=== PATIENT | female | born 1945 | race Caucasian/White ===

== ENCOUNTER → 2022-03-19 11:15 | Outpatient (BNVA) | payer MEDICARE, SELFPAY | PROVIDERS: PCP Family Medicine; Visit Provider Family Medicine | DX: H40.9 Unspecified glaucoma (principal); I10 Essential (primary) hypertension; Z90.13 Acquired absence of bilateral breasts and nipples; N64.4 Mastodynia; Z85.3 Personal history of malignant neoplasm of breast; C50.919 Malignant neoplasm of unspecified site of unspecified female breast | CPT/HCPCS: 80053; 80061; 84443; 85025 ==

== ENCOUNTER 2022-04-25 10:54 | Outpatient (CLI) | payer MEDICARE, SELFPAY ==
--- NOTE | 2022-04-25 11:00 | CT_ITS ---
WS: [id number] CT CHEST WITH INTRAVENOUS CONTRAST HISTORY: R06.02 - Shortness of breath TECHNIQUE: Contiguous 5 mm axial imaging performed on the thorax. Coronal and sagittal reformats are submitted. All CT scans at [facility] use at least one of these dose optimization techniques: automated exposure control; mA and/or kV adjustment per patient size (includes targeted exams where dose is matched to clinical indication); or iterative reconstruction. CONTRAST: Omnipaque 350; 75 mL IV. DLP: 457.01 mGy.cm COMPARISON: 04/19/2018 Lungs and central airway: Pulmonary hyperexpansion. 4 mm nodule medial RIGHT upper lobe is new. No pn eumonia. No additional suspicious nodules. Calcified granuloma along the LEFT major fissure. No pneum onia. Pleura: Normal. No pleural effusion. Heart and pericardium: Mild cardiomegaly. Moderate enlargement of the LEFT atrium. Mediastinum and vianca: No adenopathy. Prominent pericardial recess. Vessels: Mild atherosclerosis aorta. Mildly enlarged pulmonary artery. Chest wall and lower neck: No soft tissue masses. Upper abdomen: Small hiatal hernia. Hepatic steatosis. LEFT hepatic cyst measures 2.0 cm. Visualized gallbladder is negative. Moderate atrophy of the LEFT kidney with the largest calcification measuring 1.8 x 1.2 cm in the renal pelvis. This is incompletely visualized but increased in size since 2018. Osseous structures: Increase in thoracic kyphosis. Disc space narrowing and spondylitic changes in th e thoracic spine. CT/CT chest w con* [id number] IMPRESSION: 1. No pneumonia. 2. 4 mm slightly spiculated nodule medial RIGHT upper lobe. Recommend follow-u p chest CT in 6 months. 3. Mild cardiomegaly, most significant enlargement of the LEFT atrium. 4. Hepatic steatosis. 5. Moderate atrophy LEFT kidney with increasing calcification in the renal pel vis.
[2022-04-25] MEDS: iohexol 350 mg/mL 100 mL Btl IV (11:23)
== END 2022-04-25 10:55 | disposition home or self-care (01) ==
PROVIDERS: PCP Family Medicine; Visit Provider Family Medicine
DX: R06.02 Shortness of breath (principal); Z90.13 Acquired absence of bilateral breasts and nipples; N26.1 Atrophy of kidney (terminal); K76.0 Fatty (change of) liver, not elsewhere classified; I51.7 Cardiomegaly; R91.1 Solitary pulmonary nodule
CPT/HCPCS: 71260

== ENCOUNTER → 2022-04-30 13:44 | Outpatient (BNVA) | payer MEDICARE, SELFPAY | PROVIDERS: PCP Family Medicine; Visit Provider Internal Medicine Pulmonary Disease | DX: R91.1 Solitary pulmonary nodule (principal); Z90.13 Acquired absence of bilateral breasts and nipples; I12.9 Hypertensive chronic kidney disease with stage 1 through stage 4 chronic kidney disease, or unspecified chronic kidney disease; N18.9 Chronic kidney disease, unspecified; I51.7 Cardiomegaly | CPT/HCPCS: 99204 ==

== ENCOUNTER 2022-10-09 13:36 | Outpatient (CLI) | payer MEDICARE, SELFPAY ==
--- NOTE | 2022-10-09 14:30 | CT_ITS ---
WS: [id number] CT CHEST WITHOUT INTRAVENOUS CONTRAST HISTORY: 6 month f/u lung nodule TECHNIQUE: Contiguous 5 mm axial imaging performed on the thorax. Coronal and sagittal reformats are submitted. All CT scans at [facility] use at least one of these dose optimization techniques: automated exposure control; mA and/or kV adjustment per patient size (includes targeted exams where dose is matched to clinical indication); or iterative reconstruction. CONTRAST: None DLP: 196.15 mGy.cm COMPARISON: 04/25/2022 and 04/19/2018 Lungs and central airway: No adverse change in the slightly spiculated nodule in the medial RIGHT upp er lobe measuring 4 mm. Appears less spiculated and nodular as compared to the prior study. There is an additional nodule measuring 6 mm in the RIGHT lower lobe that was present on the prior study also. This nodule was probably also present on the study from 2018 but better seen due to better image tamiko lity. No increase in size. No additional mass or nodule. Pleura: Normal. No pleural effusion. Heart and pericardium: Mild cardiomegaly. Small pericardial effusion. Mediastinum and vianca: No adenopathy. Vessels: Mild atherosclerosis aorta. Mildly dilated pulmonary artery. Chest wall and lower neck: No soft tissue masses. Upper abdomen: Small hiatal hernia. Stable hepatic cyst 2.1 cm. No adrenal mass. Calcification LEFT u pper pole may be a developing staghorn calculus. Osseous structures: Mild degenerative disc disease thoracic spine. CT/CT chest wo con [id number] IMPRESSION: 1. Stable 4 mm slightly spiculated nodule medial RIGHT upper lobe. Recommend f ollow-up chest CT 12 months. 2. Atherosclerosis aorta and mild pulmonary artery enlargement. 3. Hepatic cyst, stable.
== END 2022-10-09 13:37 | disposition home or self-care (01) ==
PROVIDERS: PCP Family Medicine; Visit Provider Internal Medicine Pulmonary Disease
DX: R91.1 Solitary pulmonary nodule (principal); I70.0 Atherosclerosis of aorta; K76.89 Other specified diseases of liver
CPT/HCPCS: 71250

== ENCOUNTER → 2022-11-04 09:48 | Outpatient (BNVA) | payer MEDICARE, SELFPAY | PROVIDERS: PCP Family Medicine; Visit Provider Family Medicine | DX: N26.1 Atrophy of kidney (terminal) (principal); R53.83 Other fatigue; I10 Essential (primary) hypertension; N29 Other disorders of kidney and ureter in diseases classified elsewhere; E83.59 Other disorders of calcium metabolism; M77.30 Calcaneal spur, unspecified foot; M79.672 Pain in left foot | CPT/HCPCS: 73620; 80053; 80061; 82306; 82607; 83540; 84443; 85025 ==

== ENCOUNTER 2022-11-05 14:44 | Observation (INO) | payer MEDICARE, SELFPAY ==
[2022-11-05] VITALS (15 sets, daily range): BP systolic 133–176; BP diastolic 55–87; PULSE 71–104; RESP 16–18; TEMP 36.6–37.2; O2SAT 95–100; BMI 23.0; BMI 26.0
[2022-11-05 15:17] LABS: Basophils # 0.1 10^3/uL (0.0-0.1); Basophils % 0.5 %; Eosinophils # 0.2 10^3/uL (0.0-0.8); Eosinophils % 1.7 %; Lymphocytes # 0.9 10^3/uL (0.8-4.8); Lymphocytes % 9.3 %; Mean Corpuscular HGB Conc 25.1 g/dL (30.0-36.0); Mean Corpuscular Hemoglobin 16.4 pg (28.0-34.0); Mean Corpuscular Volume 65.5 fl (81-99); Mean Platelet Volume 9.5 fL (7.4-10.4); Monocytes % 10.5 %; Neutrophils % 77.4 %; Nucleated Red Blood Cells # 0.1 /100WBC; Platelet Count 317 10^3/cmm (130-400); Red Blood Count 3.04 10^6/uL (4.1-5.3); Red Cell Distribution Width 19.9 % (12.1-15.1); White Blood Count 9.4 10^3/uL (4.0-10.0)
[2022-11-05 15:20] LABS: Hematocrit 19.9 % (37.0-47.0)
--- NOTE | 2022-11-05 15:32 | PC.PHAR ---
pt states she takes care of her own medications--pt states she is not taking amlodipine 5mg daily filled 08/14/22 90d/s pt states stop taking 6 weeks ago-pt state she is only taking the medications entered
--- NOTE | 2022-11-05 15:36 | W.ED.RECABL ---
HPI - Recheck/Abnormal Lab/Rx General: Chief Complaint: Recheck/Abnormal Lab/Rx Stated Complaint: Jose Elias sent for blood infusion Time Seen by Provider: 11/05/22 14:47 History of Present Illness: Patient presents to the ER with complaints of a low hemoglobin level. Patient went to her PCP yesterday and stated she just does not feel good and she is tired and fatigued they did some blood work which showed a hemoglobin of 5.5. She was called today and informed of the results and told to come over here to get some blood. Patient otherwise has no complaints. Patient is not on any anticoagulation, denies any bleeding issues, is not visually losing any blood, and has never had a transfusion before. MD complaint: abnormal lab Initial visit (ago): day(s) (Visit with PCP yesterday) Initial visit for: other (Fatigue) Returns today for: other (Recheck of lab and blood) Description of abnormal result: Hemoglobin 5.5 Treatments prior to arrival: other (None) Review of Systems General: Reports: 10 or more systems reviewed and unremarkable except in HPI and below Const: Denies: fever(s) or chills Eyes: Denies: change in vision ENMT: Denies: throat pain or enlarged tonsils Card: Denies: chest pain or palpitations Resp: Denies: dyspnea, productive cough or non-productive cough GI: Denies: abdominal pain, nausea, vomiting, diarrhea, hematochezia or melena : Denies: flank pain, difficulty voiding, dysuria or hematuria Musc: Denies: neck pain or back pain Skin/Breast: Denies: rash or pruritus Neuro: Denies: headache(s), numbness in extremities or weakness in extremities Psych: Denies: anxiety or depression Mars/Lymph: Denies: easy bruising, easy bleeding, petechiae or purpura All/Imm: Denies: urticaria or throat swelling PFS ED PFSH: Medical History Hx of heat stroke HX: breast cancer Nephrocalcinosis Surgical History History of colon resection Hx of bilateral mastectomy Hx of hysterectomy, total Family History Family/Other Cancer breast; 36 family members Grandmother Diabetes Alcoholism in family member Mother Alcoholism in family member Denies family history of CAD (coronary artery disease) Clotting disorder Dementia Psychiatric illness Anesthesia complication Bleeding disorder Family history of premature coronary artery disease Stroke Social History Smoking and tobacco status: never smoked Second hand smoke exposure: No Alcohol intake: current Alcohol intake frequency: holidays/special occasions only Alcohol type: wine Adopted: No Caregiver/support person: Yes (friend) Lives independently: Yes Household members: none Marital status: / service: No Current occupational status: retired Current gender identity: Female Chiqui/Scientologist: Cheondoism Special chiqui needs: Yes Agree to transfusion: No Physical Exam Const: COMMON NORMALS: no acute distress, average body habitus, patient oriented x3, no limitations, healthy appearing, alert and well nourished HENMT: COMMON NORMALS: normocephalic, atraumatic, hearing grossly normal bilaterally, external ears normal, Normal external nose present and moist oral mucous membranes HEAD & SCALP: normocephalic and atraumatic NOSE: Normal external nose present EXTERNAL EAR: Yes external ears normal Eye: COMMON NORMALS: EOMs intact bilaterally, conjunctivae normal and no scleral icterus CONJUNCTIVA: Yes conjunctivae normal Neck/C-Spine: COMMON NORMALS: full ROM, no lymphadenopathy, supple, no meningeal signs, no JVD and Thyroid normal THYROID: Thyroid normal Cardio: COMMON NORMALS: no JVD, regular rate, regular rhythm, S1 normal heart sound present and S2 normal heart sound present RATE: regular rate RHYTHM: regular rhythm HEART SOUNDS: S1 normal heart sound present and S2 normal heart sound present GI: COMMON NORMALS: Normal to inspection, nondistended, normoactive bowel sounds present, Soft to palpation, non-tender, No hepatosplenomegaly present and no masses PALPATION: Yes Soft to palpation and Yes No hepatosplenomegaly present : COMMON NORMALS: Yes no CVA tenderness BLADDER/KIDNEY EXAM: Yes no CVA tenderness Back/Pelvis: COMMON NORMALS: no CVA tenderness Neuro: COMMON NORMALS: patient oriented x3, CN's II-XII intact bilaterally, moves all extremities, no focal motor deficits and no sensory deficits noted SENSORIUM/ORIENTATION: Yes alert MENINGEAL SIGNS: Yes no meningeal signs Psych: COMMON NORMALS: mental status grossly normal, Normal thought process present, cooperative, normal affect and speech normal SPEECH: Yes normal speech THOUGHT PROCESS: Normal thought process present Course Vital Signs: Vital signs: Vital Signs Temperature 98.1 F 11/05/22 14:49 Pulse Rate 81 11/05/22 14:49 Respiratory Rate 18 11/05/22 14:49 Blood Pressure 141/55 11/05/22 14:49 Oxygen Delivery Me thod 11/05/22 14:49 MDM - Recheck/Abnormal Lab/Rx Medical Decision Making Patient presents to the ER with complaints of a low hemoglobin per PCP. Patient's only complaint is that she is tired and fatigued. Patient went to her family doc yesterday and had lab work drawn which showed a hemoglobin of 5.5. Patient was instructed to come here to receive blood. We repeated her CBC which showed her hemoglobin of 5.0. Upon physical exam of the patient and review of the labs with the patient it was suggested that patient receive at least 2 units of blood transfusion and be placed in observation. Patient agreed with this. Dr. Cordova was consulted and he agreed for admission. Differential Diagnosis Unlikely encounter for medication refill, encounter for wound recheck, encounter for recheck of burn or encounter for removal of sutures Medical Records I reviewed the patient's medical records. Lab Data I reviewed the patient's lab results. 11/05/22 15:10 11/05/22 15:10 Laboratory Results WBC 9.4 10^3/uL (4.0-10.0) 11/05/22 15:10 RBC 3.04 10^6/uL (4.1-5.3) L 11/05/22 15:10 Hgb 5.0 g/dL (11.5-15.3) L* 11/05/22 15:10 Hct 19.9 % (37.0-47.0) L* 11/05/22 15:10 MCV 65.5 fl (81-99) L 11/05/22 15:10 MCH 16.4 pg (28.0-34.0) L 11/05/22 15:10 MCHC 25.1 g/dL (30.0-36.0) L 11/05/22 15:10 RDW 19.9 % (12.1-15.1) H 11/05/22 15:10 Plt Count 317 10^3/cmm (130-400) 11/05/22 15:10 MPV 9.5 fL (7.4-10.4) 11/05/22 15:10 Neut % (Auto) 77.4 % 11/05/22 15:10 Lymph % (Auto) 9.3 % 11/05/22 15:10 Dooly % (Auto) 10.5 % 11/05/22 15:10 Eos % (Auto) 1.7 % 11/05/22 15:10 Baso % (Auto) 0.5 % 11/05/22 15:10 Neut # (Auto) 7.30 10^3/uL (1.8-7.7) 11/05/22 15:10 Lymph # (Auto) 0.9 10^3/uL (0.8-4.8) 11/05/22 15:10 Dooly # (Auto) 1.0 10^3/uL (0.2-0.9) H 11/05/22 15:10 Eos # (Auto) 0.2 10^3/uL (0.0-0.8) 11/05/22 15:10 Baso # (Auto) 0.1 10^3/uL (0.0-0.1) 11/05/22 15:10 Nucleated RBC % (auto) 1.0 % 11/05/22 15:10 Nucleated RBCs # 0.1 /100WBC 11/05/22 15:10 Sodium 142 mmol/L (136-145) 11/05/22 15:10 Potassium 3.8 mmol/L (3.5-5.1) 11/05/22 15:10 Chloride 113 mmol/L (98-107) H 11/05/22 15:10 Carbon Dioxide 19 mmol/L (22-29) L 11/05/22 15:10 Anion Gap 13.8 (5-19) 11/05/22 15:10 BUN 19 mg/dL (8-23) 11/05/22 15:10 Creatinine 0.8 mg/dL (0.5-0.9) 11/05/22 15:10 GFR Calculation Not Reportable 11/05/22 15:10 Glucose 107 mg/dL (65-115) 11/05/22 15:10 Calculated Osmolality 297 mOsm/kg (285-295) H 11/05/22 15:10 Calcium 8.5 mg/dL (8.5-10.5) 11/05/22 15:10 Total Bilirubin 0.2 mg/dL (0.15-1.2) 11/05/22 15:10 AST 12 U/L (0-32) 11/05/22 15:10 ALT 10 U/L (0-33) 11/05/22 15:10 Alkaline Phosphatase 92 U/L (35-105) 11/05/22 15:10 Total Protein 6.5 g/dL (6.6-8.7) L 11/05/22 15:10 Albumin 4.1 g/dL (3.5-5.2) 11/05/22 15:10 Globulin 2.4 g/dL (1.3-4.6) 11/05/22 15:10 Blood Type A Negative 11/05/22 15:10 Rho(D) Type Negative 11/05/22 15:10 Discharge Plan Discharge Patient Disposition: Admitted As Inpatient Clinical Impression: Transfusion of blood during current hospitalisation Anemia Qualifiers: Anemia type: iron deficiency Iron deficiency anemia type: unspecified iron deficiency Qualified Code(s): D50.9 - Iron deficiency anemia, unspecified Condition: Stable Coding Level of Care Code ED [employer] for Jacob Castaneda
[2022-11-05 15:43] LABS: Alanine Aminotransferase 10 U/L (0-33); Albumin Level 4.1 g/dL (3.5-5.2); Alkaline Phosphatase 92 U/L (35-105); Anion Gap 13.8 (5-19); Aspartate Amino Transferase 12 U/L (0-32); Blood Urea Nitrogen 19 mg/dL (8-23); Calcium 8.5 mg/dL (8.5-10.5); Carbon Dioxide 19 mmol/L (22-29); Chloride 113 mmol/L (98-107); Globulin 2.4 g/dL (1.3-4.6); Glucose 107 mg/dL (65-115); Osmolality Calculated 297 mOsm/kg (285-295); Potassium 3.8 mmol/L (3.5-5.1); Sodium 142 mmol/L (136-145); Total Bilirubin 0.2 mg/dL (0.15-1.2); Total Protein 6.5 g/dL (6.6-8.7)
--- NOTE | 2022-11-05 15:58 | PM.HP ---
Providers/Chief Complaint Primary Care Provider: Ciara Moctezuma MD Chief Complaint: Jose Elias sent for blood infusion History of Present Illness Latia Hunter is a 77 year old female with past medical history of breast cancer post bilateral mastectomy with a strong family history of breast cancer, partial gastrectomy and hemicolectomy more than 40 years ago, hypertension not on medications presented to the ER from primary care's office because of anemia. Patient states she has been having worsening weakness, dizziness, lightheadedness especially on walking around for last 6 weeks along with mild palpitations. Denies any chest pain, difficulty in breathing, falls, dysuria, fever, cough, hematemesis or melena. Patient does states she has been having occasional lumpy soft bowel movements sometimes red sometimes black sometimes yellow in color. Denies any melena though. States had EGD and colonoscopy many years ago and was reported normal. Had Cologuard test done within last 5 years which was negative. Blood work done in the ER showed a white count of 9.4, hemoglobin of 9, sodium of 142, chloride of 113, creatinine 0.8, AST/ALT of 12/10, UA negative positive for leuk esterase with 1+ bacteria. Vitamin B12 level thousand done as an outpatient yesterday 183 with low vitamin D and low iron. Review of Systems General: Reports: 10 or more systems reviewed and unremarkable except in HPI and below Const: Denies: fever(s), chills, body aches, change in appetite, change in weight, malaise, night sweats, diaphoresis, change in sleep pattern, daytime sleepiness or snoring Eyes: Denies: change in vision, blurry vision, photophobia, eye discomfort or eye discharge ENMT: Denies: throat pain, enlarged tonsils, hoarseness, mouth pain, oral sores, dry mouth, tinnitus, nasal congestion or post nasal drip Card: Denies: chest pain, palpitations, irregular heart rhythm, edema, swelling of feet/ankles, lightheadedness, syncope, pre-syncope, dyspnea on exertion, orthopnea, leg pain with exertion or acrocyanosis Resp: Denies: dyspnea, productive cough, non-productive cough, wheezing, stridor, pain on inspiration, change in phlegm color, hemoptysis or chest congestion GI: Denies: abdominal pain, nausea, vomiting, hematemesis, coffee ground emesis, dysphagia, heartburn, diarrhea, constipation, bloating, GI cramping, change in bowel habits, pain on defecation, hematochezia or melena : Denies: flank pain, dysuria, urinary frequency, urinary urgency, urinary hesitancy, nocturia or hematuria Musc: Denies: neck pain, back pain, extremity pain, joint pain, joint swelling, joint redness, joint stiffness or limited range of motion Neuro: Denies: headache(s), numbness in extremities, weakness in extremities, sensory changes, lack of coordination, difficulty walking, frequent falls, dizziness, vertigo, confusion, Slurred speech present, difficulty communicating thoughts or seizure-like activity Psych: Denies: anxiety, depression, mood swings, panic attacks, hopelessness or irritability Endo: Denies: polyuria, polydipsia, tired all the time, cold intolerance, excessive sweating, flushing or heat intolerance Mars/Lymph: Denies: easy bruising or easy bleeding All/Imm: Denies: tongue swelling, facial swelling or acute wheezing Medications/Allergies Home Medications Medication Instructions Recorded Confirmed Last Taken Type Cordyceps Caps 1 cap PO DAILY 11/05/22 11/05/22 Unknown History Reishi Caps 1 cap PO DAILY 11/05/22 11/05/22 Unknown History Spirulina Caps 1 cap PO DAILY 11/05/22 11/05/22 Unknown History timolol maleate 0.5 % eye drops 1 drp ophthalmic (eye) BID 11/05/22 11/05/22 11/05/22 History vitamin D3 1,250 mcg (50,000 1 cap PO DAILY 11/05/22 11/05/22 Unknown History unit)-vitamin K2 200 mcg capsule Allergies Allergy/AdvReac Type Severity Reaction Status Date / Time Sulfa (Sulfonamide Allergy Severe ALGY-Anaphy Verified 11/04/22 08:53 Antibiotics) laxis PFSH Acute PFSH: Medical History (Updated 11/05/22 @ 16:00 by Alfredo Ford MD) Hx of heat stroke HX: breast cancer Nephrocalcinosis Surgical History (Updated 11/05/22 @ 17:27 by Alfredo Ford MD) History of colon resection History of partial gastrectomy Hx of bilateral mastectomy Hx of hysterectomy, total Family History Family/Other Cancer breast; 36 family members Grandmother Diabetes Alcoholism in family member Mother Alcoholism in family member Denies family history of CAD (coronary artery disease) Clotting disorder Dementia Psychiatric illness Anesthesia complication Bleeding disorder Family history of premature coronary artery disease Stroke Social History Smoking and tobacco status: never smoked Second hand smoke exposure: No Alcohol intake: current Alcohol intake frequency: holidays/special occasions only Alcohol type: wine Adopted: No Caregiver/support person: Yes (friend) Lives independently: Yes Household members: none Marital status: / service: No Current occupational status: retired Current gender identity: Female Chiqui/Holiness: Scientologist Special chiqui needs: Yes Agree to transfusion: No Vitals/I&O/Wt Last Vital Signs Temp 98.1 F 11/05/22 14:49 Pulse 81 11/05/22 14:49 Resp 18 11/05/22 14:49 BP 141/55 11/05/22 14:49 O2 Del Method 11/05/22 14:49 Weight last 48 hrs Weight 53.524 kg Physical Exam Narrative: General: No acute distress, AO x3, pallor, jovial HEENT: PERRLA, pupils bilaterally equal and reactive Chest: Normal vesicular breath sounds, no added sounds, equal good air entry bilaterally CVS: S1-S2 regular, no murmurs, no tachycardia, no gallops, no rubs Abdomen: Soft, nontender, no organomegaly, bowel sounds present Neuro: No focal deficits, no facial deformity, AO x3, power 5/5 in all limbs Data 11/05/22 15:10 11/05/22 15:10 A&P Assessment and plan (1) Anemia: Denies any active signs of melena. Patient does have a history of breast cancer with significant family history of breast cancer as well. Also has a history of partial gastrectomy. Found to have iron deficiency and low vitamin B12 levels. Check haptoglobin, LDH, folate, GGT levels. Check INR. Start on IV iron supplementation 200 mg for 5 days. Cyanocobalamin 1000 mcg IM daily for 3 days followed by 500 mcg daily oral. 2 units PRBC transfusion. IV Protonix 40 mg daily. Stool for occult blood. If occult blood is positive will plan for EGD and colonoscopy. Last colonoscopy and EGD many years ago reported normal. Cologuard test done [address] chest abdomen pelvis with contrast and oral contrast. Qualifiers: Anemia type: iron deficiency Iron deficiency anemia type: unspecified iron deficiency Qualified Code(s): D50.9 - Iron deficiency anemia, unspecified (2) Iron deficiency anemia: (3) B12 deficiency: (4) Essential hypertension: Goal blood pressure less than 140/90 mmHg. Restart medications as per goal blood pressures. (5) Atrophic kidney: Chronic history. Creatinine normal. CT abdomen pelvis as above. Continue to monitor BMP daily. (6) History of partial gastrectomy: More than 40 years ago for ? Cause. Does have iron, vitamin B12, vitamin D deficiencies. Could be secondary to poor absorption. Check fecal fat levels, vitamin A and vitamin K levels. Plan Full code. Protonix for PUD prophylaxis. SCDs for DVT prophylaxis. Regular diet. Attestations Medical Necessity Statement*: Admission for more than 2 midnights for evaluation and management of significant symptomatic anemia requiring blood transfusion Diagnoses Anemia D50.9 Anemia type: iron deficiency Iron deficiency anemia type: unspecified iron deficiency Iron deficiency anemia D50.9 B12 deficiency E53.8 Essential hypertension I10 Atrophic kidney N26.1 History of partial gastrectomy Z90.3
[2022-11-05 16:06] LABS: Bilirubin Urine Neg (Negative); Blood Urine Neg (Negative); Glucose Urine UA Norm (Normal); Ketones Urine 1+ (Negative); Nitrate Urine Negative (Negative); Protein Urine Trace (Negative); Specific Gravity, Urine 1.015 (1.005-1.030); Urine Appearance Hazy (CLEAR); Urine Color Yellow (Yellow); Urobilinogen Urine Norm (Negative); pH Urine 5 (5-7)
[2022-11-05 16:07] LABS: Add Urine Microscopic? YES; Bacteria Urine 1+ /hpf; Leukocyte Esterase Urine Trace (Negative); Squamous Epithelial Cell Urine 0-4 /hpf (0-5)
[2022-11-05 16:10] LABS: Calcium Oxalate Crystals Urine 25-40 /hpf
[2022-11-05 16:11] LABS: Add Urine Culture? No
--- NOTE | 2022-11-05 16:13 | CTR_ITS ---
PROCEDURE INFORMATION: Exam: CT Chest With Contrast; Diagnostic Exam date and time: 11/05/2022 5:08 PM Age: 77 years old Clinical indication: Condition or disease; Other: Anemia; Other: H/o CA; Prior surgery; Surgery date: 6+ months; Surgery type: Double mast colon; Additional info: Anemia, strong family h/o cancer TECHNIQUE: Imaging protocol: Diagnostic computed tomography of the chest with contrast. Radiation optimization: All CT scans at this facility use at least one of these dose optimization techniques: automated exposure control; mA and/or kV adjustment per patient size (includes targeted exams where dose is matched to clinical indication); or iterative reconstruction. Contrast material: OMNI 350; Contrast volume: 100 ml; Contrast route: INTRAVENOUS (IV); REPORTING DATA: Count of CT and Cardiac NM exams in prior 12 months: This patient has received 2 known CTs and 0 known cardiac nuclear medicine studies in the 12 months prior to the current study. COMPARISON: CT chest wo con [id number] 10/09/2022 2:17 PM RADIATION DOSE METRICS: Total DLP (mGy-cm): 610.49 FINDINGS: Lungs: Left upper lobe calcified granuloma. Stable 4 mm irregular density in the right lung apex which has the appearance of scar, series 4 image 17. Stable 6 mm right lower lobe nodule, image 37. Stable 3 mm left lower lobe nodule, image 35. Pleural spaces: Unremarkable. No pneumothorax. No pleural effusion. Heart: Mitral annulus calcifications. Lymph nodes: Unremarkable. No enlarged lymph nodes. Vasculature: Unremarkable. No aortic aneurysm. Bones/joints: Degenerative changes of the thoracic spine. No fracture or metastatic lesion. Soft tissues: Bilateral mastectomies. PROCEDURE INFORMATION: Exam: CT Abdomen And Pelvis With Contrast Exam date and time: 11/05/2022 5:08 PM Age: 77 years old Clinical indication: Condition or disease; Other: Anemia; Other: H/o CA; Prior surgery; Surgery date: 6+ months; Surgery type: Double mast colon; Additional info: Anemia, strong family h/o cancer TECHNIQUE: Imaging protocol: Computed tomography of the abdomen and pelvis with contrast. Radiation optimization: All CT scans at this facility use at least one of these dose optimization techniques: automated exposure control; mA and/or kV adjustment per patient size (includes targeted exams where dose is matched to clinical indication); or iterative reconstruction. Contrast material: OMNI 350; Contrast volume: 100 ml; Contrast route: INTRAVENOUS (IV); REPORTING DATA: Count of CT and Cardiac NM exams in prior 12 months: This patient has received 2 known CTs and 0 known cardiac nuclear medicine studies in the 12 months prior to the current study. COMPARISON: CT chest con [id number] 10/09/2022 2:17 PM RADIATION DOSE METRICS: Total DLP (mGy-cm): 610.49 FINDINGS: Liver: Left liver lobe cyst, Hounsfield units less than 20. Additional hypodensities in the liver are too small to characterize but are most likely cysts. No suspicious nodule. Gallbladder and bile ducts: Partially contracted gallbladder. The bile ducts are normal. Pancreas: Normal. No ductal dilation. Spleen: Normal. No splenomegaly. Adrenal glands: Normal. No mass. Kidneys and ureters: Atrophic left kidney with stable large staghorn type renal calculi. Hypodense lesions in the right kidney are too small to accurately characterize but are most likely cysts. No follow-up imaging is recommended. No ureteral calculus or hydronephrosis. Stomach and bowel: The colon is moderately distended with gas and stool. No wall thickening. The stomach and small bowel are unremarkable. No obstruction. Appendix: No evidence of appendicitis. Intraperitoneal space: Unremarkable. No free air. No significant fluid collection. Vasculature: Arterial calcifications. No aneurysm. Lymph nodes: Small retroperitoneal lymph nodes are most likely reactive. Urinary bladder: Unremarkable as visualized. Reproductive: The uterus is absent. Small retained ovaries. Bones/joints: Degenerative changes of the lumbar spine. No fracture or metastatic lesion identified. Lumbar scoliosis. Soft tissues: Unremarkable. CT/CT chest abdpel w/*[id number] IMPRESSION: 1. No acute findings. 2. Stable pulmonary nodules (unchanged from 04/25/2022). CT follow-up in 1 year recommended. IMPRESSION: 1. No acute findings. 2. Stable atrophic left kidney with nonobstructing renal calculi. COMMENTS: Consistent with the [employer]'s Incidental Findings Committee white paper (J Am Gabriele Radiol 2018): Any incidental renal lesion less than 1 cm or classified as too small to characterize, or any incidental cystic renal lesion characterized as simple-appearing, is likely benign. No follow-up imaging is recommended for these lesions per consensus recommendations based on imaging criteria.
[2022-11-05 16:20] LABS: Partial Thromboplastin Time 29.2 SECONDS (23.9-36.7)
[2022-11-05 16:31] LABS: Gamma Glutamyl Transferase 11 U/L (5-36); Lactate Dehydrogenase 172 U/L (135-214); Thyroid Stimulating Hormone 1.56 uIU/mL (0.27-4.20)
--- NOTE | 2022-11-05 16:40 | USCV_ITS ---
Latia Hunter Age: 77 Gender: F : 1945 Exam Date: 11/05/2022 20:28 Ordering Phys: Alfredo Ford MD Technologist: BEE Exam Location: [facility] Indication: SOB, low hemoglobin, fatigue, malaise. No history of cardiac intervention per patient. BP: 143 / 68 HR: 84 Rhythm: Sinus Technical Quality: Adequate MEASUREMENTS (Male / Female) Normal Values 2D ECHO LV Diastolic Diameter PLAX 3.1 cm 4.2 - 5.9 / 3.9 - 5.3 cm LV Systolic Diameter PLAX 1.9 cm IVS Diastolic Thickness 1.4 cm 0.6 - 1.0 / 0.6 - 0.9 cm IVS Systolic Thickness 1.9 cm LVPW Diastolic Thickness 1.1 cm 0.6 - 1.0 / 0.6 - 0.9 cm LVPW Systolic Thickness 1.3 cm LVOT Diameter 1.7 cm LV Ejection Fraction 2D Teich 71.0 % LV Ejection Fraction MOD 2C 72.0 % LV Ejection Fraction 2C AL 76.5 % LA Diameter 3.1 cm LA Width 3.8 cm LA Height 5.1 cm RA Width 3.0 cm RA Height 4.2 cm Aorta at Sinotubular Diameter 2.7 cm IVC Diameter 2.0 cm M-MODE Aortic Annulus Diameter 2.9 cm LA Ao Ratio MM 1.1 MV E Point Septal Separation 0.5 cm DOPPLER AV Peak Velocity 134.3 cm/s LVOT Peak Velocity 137.0 cm/s AV Area Cont Eq vti 2.2 cm squared AV Area Cont Eq pk 2.4 cm squared MV Area PHT 3.2 cm squared Mitral E to A Ratio 1.0 MV E' Velocity 74.5 cm/s Mitral E to MV E' Ratio 24.9 Mitral E to LV E' Lateral Ratio 26.2 Mitral E to LV E' Septal Ratio 23.6 TR Peak Velocity 339.3 cm/s TR Peak Gradient 46.1 mmHg TV Peak E Velocity 52.0 cm/s Right Atrial Pressure 5.0 mmHg Pulmonary Artery Systolic Pressu 51.1 mmHg PV Peak Velocity 125.0 cm/s RV Acceleration Time 0.1 s RV Ejection Time 0.3 s RV AcT/ET 0.3 FINDINGS Left Ventricle Left ventricle is normal size. LV systolic function is normal with EF of 60 to 65%. No regional wall motion abnormalities are seen. Right Ventricle Normal in size and function Right Atrium Normal in size Left Atrium Dilated Mitral Valve Moderate mitral annular calcification is seen. No significant regurgitation. Aortic Valve Structurally normal aortic valve. No significant stenosis. Tricuspid Valve Mild tricuspid regurgitation. RVSP is 50 to 55 mmHg. This is consistent with moderate pulmonary hypertension. Pulmonic Valve Not well-visualized. Mild pulmonic regurgitation Pericardium Normal Aorta Normal in size IVC Appears to be normal CONCLUSIONS LV systolic function is normal with EF of 60 to 65%. Left atrial dilation Mild tricuspid regurgitation. Moderate pulmonary hypertension Mild pulmonic regurgitation No comparison studies are available Vic Yoder MD (Electronically Signed) Final Date: 06 November 2022 11:14 S
[2022-11-05] MEDS: cyanocobalamin 1,000 mcg/mL SDV 1000 MCG IM (16:53)
[2022-11-05] MEDS: iohexol 350 mg/mL 500 mL Btl (per mL) IV (17:14)
[2022-11-05 19:34] LABS: Folate Level 11.9 ng/mL (4.8-37.3)
[2022-11-05] MEDS: pantoprazole 40 mg SDV IVP (21:45)
[2022-11-05] MEDS: iron sucrose 200 MG in sodium chloride 0.9% (100 ml) 100 ML 220 MG IV (21:46)
[2022-11-06] VITALS (10 sets, daily range): BP systolic 128–192; BP diastolic 68–82; PULSE 72–84; RESP 15–17; TEMP 36.6–37.2; O2SAT 95–98
[2022-11-06] MEDS: sodium chloride 0.9% 100 mL Bag 50 ML IV (00:18)
[2022-11-06 03:20] LABS: Basophils # 0.1 10^3/uL (0.0-0.1); Basophils % 0.6 %; Eosinophils # 0.2 10^3/uL (0.0-0.8); Eosinophils % 1.8 %; Hematocrit 30.9 % (37.0-47.0); Hemoglobin 8.8 g/dL (11.5-15.3); Lymphocytes # 1.2 10^3/uL (0.8-4.8); Lymphocytes % 11.9 %; Mean Corpuscular HGB Conc 28.5 g/dL (30.0-36.0); Mean Corpuscular Volume 73.7 fl (81-99); Mean Platelet Volume 9.6 fL (7.4-10.4); Monocytes % 10.2 %; Neutrophils # 7.53 10^3/uL (1.8-7.7); Neutrophils % 75.2 %; Nucleated Red Blood Cells # 0.1 /100WBC; Nucleated Red Blood Cells % 0.6 %; Platelet Count 258 10^3/cmm (130-400); Red Blood Count 4.19 10^6/uL (4.1-5.3); Red Cell Distribution Width 25.2 % (12.1-15.1)
[2022-11-06 03:38] LABS: Alanine Aminotransferase 10 U/L (0-33); Albumin Level 3.4 g/dL (3.5-5.2); Alkaline Phosphatase 97 U/L (35-105); Anion Gap 14.6 (5-19); Aspartate Amino Transferase 14 U/L (0-32); Blood Urea Nitrogen 17 mg/dL (8-23); Calcium 8.5 mg/dL (8.5-10.5); Carbon Dioxide 17 mmol/L (22-29); Chloride 112 mmol/L (98-107); Globulin 2.8 g/dL (1.3-4.6); Glucose 118 mg/dL (65-115); Magnesium 1.8 mg/dL (1.7-2.3); Osmolality Calculated 293 mOsm/kg (285-295); Potassium 3.6 mmol/L (3.5-5.1); Sodium 140 mmol/L (136-145); Total Bilirubin 0.5 mg/dL (0.15-1.2); Total Protein 6.2 g/dL (6.6-8.7)
--- NOTE | 2022-11-06 03:39 | PC.NURSE ---
SENIOR SALES CONSULTANT reports to this nurse high blood pressure on patient. This nurse went to recheck blood pressure and it is 201/78. Patient educated that the physician would need to be notified of elevated blood pressure. Patient states I wish I had brought my herbal tea with me. It brings my blood pressure down. Patient then states let me try some lemon water before you call him. Taisha can bring it down too. Patient has lemon water at bedside.
--- NOTE | 2022-11-06 03:52 | PC.NURSE ---
Addendum entered by Yanci Brambila RN 11/06/22 04:19: Hydralazine x1 ordered. Original Note: Blood pressure 194/[address] Vargas notified. Patient states I know why it's high, it's because I'm sitting here trying to figure out how I'm gonna pay for all of this. Dr. Vargas notified of blood pressure.
[2022-11-06 04:10] LABS: Estmated Average Glucose 108; Hemoglobin A1C 5.4 % (4.0-6.0)
[2022-11-06] MEDS: hyDRALAzine 20 mg/mL INJ 1 mL 10 MG IVP (04:31)
[2022-11-06] MEDS: cyanocobalamin 1,000 mcg/mL SDV 1000 MCG IM (09:32)
[2022-11-06] MEDS: cholecalciferol (vitamin D3) 5,000 unit Tablet 5000 UNIT PO (09:32)
[2022-11-06] MEDS: amlodipine 10 mg Tablet PO (10:07)
--- NOTE | 2022-11-06 10:14 | P.CONIM_ITS ---
Providers/Reason For Consult Consulting Physician/Specialty*: Dr. Ford/hospitalist Reason for Consult*: Iron deficiency anemia Attending Physician: Alfredo Ford MD Primary Care Provider: Ciara Moctezuma MD History of Present Illness History of Present Illness Latia Hunter is a 77 year old female who presents with iron deficiency anemia. The patient had a hemoglobin of 5. The patient was admitted to the hospitalist service. The patient has been transfused. The patient is currently awake and alert. The patient's past medical history is somewhat confusing. The patient had some sort of partial gastrectomy more than 40 years ago. The exact reason for this is unclear. The patient states that she has been having lumpy stools. The patient denies black tarry stools. She denies bright red blood per rectum. She denies hematemesis. Review of Systems General: Reports: 10 or more systems reviewed and unremarkable except in HPI and below Medications/Allergies Home Medications Medication Instructions Recorded Confirmed Last Taken Type Cordyceps Caps 1 cap PO DAILY 11/05/22 11/05/22 Unknown History Reishi Caps 1 cap PO DAILY 11/05/22 11/05/22 Unknown History Spirulina Caps 1 cap PO DAILY 11/05/22 11/05/22 Unknown History timolol maleate 0.5 % eye drops 1 drp ophthalmic (eye) BID 11/05/22 11/05/22 11/05/22 History vitamin D3 1,250 mcg (50,000 1 cap PO DAILY 11/05/22 11/05/22 Unknown History unit)-vitamin K2 200 mcg capsule Allergies Allergy/AdvReac Type Severity Reaction Status Date / Time Sulfa (Sulfonamide Allergy Severe ALGY-Anaphy Verified 11/04/22 08:53 Antibiotics) laxis Current Medications Generic Name Dose Route Start Last Admin Trade Name Freq PRN Reason Stop Dose Admin Amlodipine Besylate 10 mg 11/06/22 09:55 11/06/22 10:07 Amlodipine 10 Mg Tablet PO 10 mg DAILY GERONIMO Administration Cyanocobalamin 1,000 mcg 11/05/22 15:50 11/06/22 09:32 Cyanocobalamin 1,000 Mcg/Ml Sdv IM 11/08/22 15:49 1,000 mcg DAILY GERONMIO Administration Iron Sucrose 200 mg/ Sodium 110 mls @ 220 mls/hr 11/05/22 17:46 11/05/22 22:14 Chloride IV 11/09/22 23:29 Infused Q24H GERONIMO Infusion Pantoprazole Sodium 40 mg 11/05/22 17:46 11/05/22 21:45 Pantoprazole 40 Mg Sdv IVP 40 mg Q24H GERONIMO Administration Sodium Chloride 50 ml 11/05/22 15:33 11/06/22 00:18 Sodium Chloride 0.9% 100 Ml Bag IV 11/06/22 15:35 50 ml PRN PRN Administration Blood transfusion prime and flush Vitamin D 5,000 unit 11/06/22 09:00 11/06/22 09:32 Cholecalciferol (Vitamin D3) 5,000 Unit Tablet PO 5,000 unit DAILY GERONIMO Administration PFSH Acute PFSH: Medical History (Updated 11/05/22 @ 16:00 by Alfredo Ford MD) Hx of heat stroke HX: breast cancer Nephrocalcinosis Surgical History (Updated 11/05/22 @ 17:27 by Alfredo Ford MD) History of colon resection History of partial gastrectomy Hx of bilateral mastectomy Hx of hysterectomy, total Family History Family/Other Cancer breast; 36 family members Grandmother Diabetes Alcoholism in family member Mother Alcoholism in family member Denies family history of CAD (coronary artery disease) Clotting disorder Dementia Psychiatric illness Anesthesia complication Bleeding disorder Family history of premature coronary artery disease Stroke Social History Smoking and tobacco status: never smoked Second hand smoke exposure: No Alcohol intake: current Alcohol intake frequency: holidays/special occasions only Alcohol type: wine Adopted: No Caregiver/support person: Yes (friend) Lives independently: Yes Household members: none Marital status: / service: No Current occupational status: retired Current gender identity: Female Chiqui/Spiritism: Episcopalian Special chiqui needs: Yes Agree to transfusion: No Vitals/I&O/Wt Last Vital Signs Temp 97.8 F 11/06/22 08:00 Pulse 72 11/06/22 08:00 Resp 17 11/06/22 08:00 BP 170/77 11/06/22 08:00 Pulse Ox 95 11/06/22 08:00 O2 Del Method 11/06/22 08:00 11/05/22 11/06/22 11/06/22 22:59 06:59 14:59 Intake Total 700 / 700 470 / 1170 240 / 240 Balance 700 / 700 470 / 1170 240 / 240 Weight last 48 hrs Weight 131 lb 1.6 oz Weight 118 lb Physical Exam Narrative: Generally: No acute distress Lungs: Clear to auscultation Heart: Regular rate and rhythm Abdomen: Soft, nontender without masses. The patient is positive bowel sounds. I did not perform a rectal exam. Extremities: The patient has some deformities of her fingers. This probably secondary to arthritis. She is got good cap refill in both her hands and feet. Neurologic: Patient is awake, alert, oriented x3. The patient's Thurmond Coma Scale is 15. The patient sensations intact to light touch throughout. Data 11/06/22 03:13 11/06/22 03:13 Micro: Microbiology 11/05/22 22:27 Occult Blood (FIT) - Final Stool - Stool Aspirate Attestation for Other Data: I personally reviewed and interpreted the following: (All the patient's labs including a CT scan of the chest, abdomen and pelvis which was performed yesterday.) A&P Assessment and plan (1) Anemia: I spoke with the patient at length. I explained to her that she probably needs to undergo endoscopy. She probably needs to have both upper and lower performed. In order to have the lower endoscopy performed the patient will need to be cleaned out. The patient stated that she did not want to stay in the hospital 1 more night. I told her we could probably do the scope later on this afternoon. The patient stated that she would prefer to have everything done as an outpatient. I explained the patient that the fact that she had a hemoglobin of 5 is extremely serious. The patient was focused on taking care of her animals and the fact that she had out-of-town guests coming in later on this week. Once again I stressed that this is extremely serious and that there is a possibility that she would not be okay and that she could pass out and possibly from a low hemoglobin. The patient understands risk and benefits and would like to have her procedure done as an outpatient. The patient should follow-up with Dr. Ann. Thank you so much for this consult. Qualifiers: Anemia type: iron deficiency Iron deficiency anemia type: unspecified iron deficiency Qualified Code(s): D50.9 - Iron deficiency anemia, unspecified Coding Level of Care Code Acute Code for Chg Fwd Diagnoses Anemia D50.9 Anemia type: iron deficiency Iron deficiency anemia type: unspecified iron deficiency
--- NOTE | 2022-11-06 10:52 | P.DS_ITS ---
Discharge Providers Date of Admission: 11/05/22 16:20 Date of Discharge: November 06, 2022 Attending Provider at Admission: Alfredo Ford MD Attending Provider at Discharge: Alfredo Ford MD Consults: Surgery: Dr. Beauchamp Primary Care Provider: Ciara Moctezuma MD Diagnoses at Discharge Discharge Diagnosis (1) Anemia: Status: Acute Qualifiers: Anemia type: iron deficiency Iron deficiency anemia type: unspecified iron deficiency Qualified Code(s): D50.9 - Iron deficiency anemia, unspecified (2) History of partial gastrectomy: Status: Acute (3) B12 deficiency: Status: Acute (4) Iron deficiency anemia: Status: Acute (5) Transfusion of blood during current hospitalisation: Status: Acute Reason for Visit Reason for Visit: Jose Elias sent for blood infusion Hospital Course Hospital Course Latia Hunter is a 77 year old female with past medical history of breast cancer post bilateral mastectomy with a strong family history of breast cancer, partial gastrectomy and hemicolectomy more than 40 years ago, hypertension not on medications presented to the ER from primary care's office because of anemia.? Patient states she has been having worsening weakness, dizziness, lightheadedness especially on walking around for last 6 weeks along with mild palpitations.? Denies any chest pain, difficulty in breathing, falls, dysuria, fever, cough, hematemesis or melena.? Patient does states she has been having occasional lumpy soft bowel movements sometimes red sometimes black sometimes yellow in color.? Denies any melena though.? States had EGD and colonoscopy many years ago and was reported normal.? Had Cologuard test done within last 5 years which was negative. Blood work done in the ER showed a white count of 9.4, hemoglobin of 9, sodium of 142, chloride of 113, creatinine 0.8, AST/ALT of 12/10, UA negative positive for leuk esterase with 1+ bacteria.? Vitamin B12 level thousand done as an outpatient yesterday 183 with low vitamin D and low iron. Patient was admitted to the hospital for further evaluation and management of severe anemia. She required 2 unit of blood transfusion. Her hemoglobin responded well and on day of discharge is more than 8. Given her history of partial gastrectomy there were concerns for malabsorption syndrome versus possible slow GI bleed. Her stool for occult blood came back positive. She was found to be deficient of vitamin B12, iron and vitamin D. Vitamin K and vitamin A levels are pending. Fecal fat is pending as well. Patient was advised to undergo EGD and colonoscopy for further evaluation and management but she wanted to follow-up as an outpatient for both procedures. During hospitalization she was also found to have slightly elevated blood pressures for which she had been started on oral amlodipine 10 mg daily. Patient advised in detail to make sure she takes vitamin D, B12 and iron supplement as an outpatient. Follow-up with primary care provider within next 1 week, follow-up with surgeon as an outpatient within next 1 week and to follow- up with hematology within next 1 month for further evaluation of severe anemia with vitamin B12 and iron deficiency. Physical Exam Narrative: General: No acute distress, AO x3, pallor, jovial HEENT: PERRLA, pupils bilaterally equal and reactive Chest: Normal vesicular breath sounds, no added sounds, equal good air entry bilaterally CVS: S1-S2 regular, no murmurs, no tachycardia, no gallops, no rubs Abdomen: Soft, nontender, no organomegaly, bowel sounds present Neuro: No focal deficits, no facial deformity, AO x3, power 5/5 in all limbs Discharge Data Studies Completed and Pending Completed Studies During Hospitalization Category Date Time Status CT chest abdpel w/*[id number] Stat Cat Scan 11/05/22 16:13 Completed Pending at discharge Category Date Time Status Complete Blood Count w/Auto AM LABS Lab 11/07/22 04:00 Ordered Comprehensive Metabolic Panel AM LABS Lab 11/07/22 04:00 Ordered Fecal Fat, Qualitative Routine Lab 11/05/22 22:27 Received Vitamin A (Retinol) Routine Lab 11/05/22 18:20 Received Vitamin K Routine Lab 11/05/22 18:20 Received CV. echo complete* [id number] Routine Ultrasound 11/05/22 16:40 Taken Radiology Impressions Chest/Abdomen/Pelvis CT 11/05/22 16:13 IMPRESSION: 1. No acute findings. 2. Stable pulmonary nodules (unchanged from 04/25/2022). CT follow-up in 1 year recommended. IMPRESSION: 1. No acute findings. 2. Stable atrophic left kidney with nonobstructing renal calculi. COMMENTS: Consistent with the [employer]'s Incidental Findings Committee white paper (J Am Gabriele Radiol 2018): Any incidental renal lesion less than 1 cm or classified as too small to characterize, or any incidental cystic renal lesion characterized as simple-appearing, is likely benign. No follow-up imaging is recommended for these lesions per consensus recommendations based on imaging criteria. Echocardiogram: ?CONCLUSIONS ?LV systolic function is normal with EF of 60 to 65%. ?Left atrial dilation ?Mild tricuspid regurgitation.? Moderate pulmonary hypertension ?Mild pulmonic regurgitation ?No comparison studies are available ?Vic Yoder MD ?(Electronically Signed) ?Final Date:? ? ? 06 November 2022 ? 11:14 Laboratory Results WBC 10.0 10^3/uL (4.0-10.0) 11/06/22 03:13 RBC 4.19 10^6/uL (4.1-5.3) 11/06/22 03:13 Hgb 8.8 g/dL (11.5-15.3) L D 11/06/22 03:13 Hct 30.9 % (37.0-47.0) L D 11/06/22 03:13 MCV 73.7 fl (81-99) L D 11/06/22 03:13 MCH 21.0 pg (28.0-34.0) L D 11/06/22 03:13 MCHC 28.5 g/dL (30.0-36.0) L D 11/06/22 03:13 RDW 25.2 % (12.1-15.1) H 11/06/22 03:13 Plt Count 258 10^3/cmm (130-400) 11/06/22 03:13 MPV 9.6 fL (7.4-10.4) 11/06/22 03:13 Neut % (Auto) 75.2 % 11/06/22 03:13 Lymph % (Auto) 11.9 % 11/06/22 03:13 [place] % (Auto) 10.2 % 11/06/22 03:13 Eos % (Auto) 1.8 % 11/06/22 03:13 Baso % (Auto) 0.6 % 11/06/22 03:13 Neut # (Auto) 7.53 10^3/uL (1.8-7.7) 11/06/22 03:13 Lymph # (Auto) 1.2 10^3/uL (0.8-4.8) 11/06/22 03:13 [place] # (Auto) 1.0 10^3/uL (0.2-0.9) H 11/06/22 03:13 Eos # (Auto) 0.2 10^3/uL (0.0-0.8) 11/06/22 03:13 Baso # (Auto) 0.1 10^3/uL (0.0-0.1) 11/06/22 03:13 Nucleated RBC % (auto) 0.6 % 11/06/22 03:13 Nucleated RBCs # 0.1 /100WBC 11/06/22 03:13 Haptoglobin 206.0 mg/L (30-200) H 11/05/22 15:13 APTT 29.2 SECONDS (23.9-36.7) 11/05/22 15:13 Sodium 140 mmol/L (136-145) 11/06/22 03:13 Potassium 3.6 mmol/L (3.5-5.1) 11/06/22 03:13 Chloride 112 mmol/L (98-107) H 11/06/22 03:13 Carbon Dioxide 17 mmol/L (22-29) L 11/06/22 03:13 Anion Gap 14.6 (5-19) 11/06/22 03:13 BUN 17 mg/dL (8-23) 11/06/22 03:13 Creatinine 0.9 mg/dL (0.5-0.9) 11/06/22 03:13 GFR Calculation Not Reportable 11/06/22 03:13 Glucose 118 mg/dL (65-115) H 11/06/22 03:13 Estimat Average Glucose 108 11/06/22 03:13 Hemoglobin A1c 5.4 % (4.0-6.0) 11/06/22 03:13 Calculated Osmolality 293 mOsm/kg (285-295) 11/06/22 03:13 Calcium 8.5 mg/dL (8.5-10.5) 11/06/22 03:13 Phosphorus 3.0 mg/dL (2.5-4.5) 11/06/22 03:13 Magnesium 1.8 mg/dL (1.7-2.3) 11/06/22 03:13 Total Bilirubin 0.5 mg/dL (0.15-1.2) 11/06/22 03:13 GGT 11 U/L (5-36) 11/05/22 15:13 AST 14 U/L (0-32) 11/06/22 03:13 ALT 10 U/L (0-33) 11/06/22 03:13 Alkaline Phosphatase 97 U/L (35-105) 11/06/22 03:13 Lactate Dehydrogenase 172 U/L (135-214) 11/05/22 15:13 Total Protein 6.2 g/dL (6.6-8.7) L 11/06/22 03:13 Albumin 3.4 g/dL (3.5-5.2) L 11/06/22 03:13 Globulin 2.8 g/dL (1.3-4.6) 11/06/22 03:13 Folate 11.9 ng/mL (4.8-37.3) 11/05/22 18:20 TSH 1.56 uIU/mL (0.27-4.20) 11/05/22 15:13 Urine Color Yellow (Yellow) 11/05/22 15:24 Urine Appearance Hazy (CLEAR) A 11/05/22 15:24 Urine pH 5 (5-7) 11/05/22 15:24 Ur Specific [place] 1.015 (1.005-1.030) 11/05/22 15:24 Urine Protein Trace (Negative) 11/05/22 15:24 Urine Glucose (UA) Norm (Normal) 11/05/22 15:24 Urine Ketones 1+ (Negative) H 11/05/22 15:24 Urine Blood Neg (Negative) 11/05/22 15:24 Urine Nitrate Negative (Negative) 11/05/22 15:24 Urine Bilirubin Neg (Negative) 11/05/22 15:24 Urine Urobilinogen Norm mg/dL (Negative) 11/05/22 15:24 Ur Leukocyte Esterase Trace (Negative) H 11/05/22 15:24 Urine RBC None /hpf (0-2) 11/05/22 15:24 Urine WBC 5-10 /hpf (0-5) H 11/05/22 15:24 Ur Squamous Epith Cells 0-4 /hpf (0-5) H 11/05/22 15:24 Calcium Oxalate Crystal 25-40 /hpf H 11/05/22 15:24 Amorphous Sediment Not Reportable 11/05/22 15:24 Urine Bacteria 1+ /hpf (NONE) H 11/05/22 15:24 Blood Type A Negative 11/05/22 15:10 Rho(D) Type Negative 11/05/22 15:10 Antibody Screen Negative 11/05/22 15:10 Crossmatch See Detail 11/05/22 15:10 Vitals Last Vital Signs Temp 97.8 F 11/06/22 08:00 Pulse 72 11/06/22 08:00 Resp 17 11/06/22 08:00 BP 170/77 11/06/22 08:00 Pulse Ox 95 11/06/22 08:00 O2 Del Method 11/06/22 08:00 Discharge Plan Discharge Patient Disposition: Home Condition: Stable Prescriptions: New amlodipine 10 mg Tablet 10 mg PO DAILY Qty: 30 0RF cholecalciferol (vitamin D3) 125 mcg (5,000 unit) Tablet 5,000 unit PO DAILY Qty: 30 0RF Vitamin B-12 1,000 mcg Tablet 500 mcg PO DAILY Qty: 30 0RF Protonix 40 mg tablet,delayed release (DR/EC) 40 mg PO DAILY 28 Days Qty: 30 0RF Continued timolol maleate 0.5 % drops 1 drp ophthalmic (eye) BID vitamin D3-vitamin K2 1,250-200 mcg Capsule 1 cap PO DAILY Cordyceps Caps 1 cap PO DAILY Reishi Caps 1 cap PO DAILY Spirulina Caps 1 cap PO DAILY Discharge Orders: Discharge Order (Routine); Ordered 11/06/22 Ordered By: Alfredo Ford Referrals: Francis Ann DO [Physician] - 4-7 days (EGD and colonoscopy message sent to clinic.) Mylene Acosta MD [Staff Physician] - (Severe CHHAYA with concerns for malabsorption syndrome sent messgae to clinic.) Ciara Moctezuma MD [Primary Care Provider] - 7-10 days (message sent. ) Discharge Diet: Regular Discharge Activity: Resume usual activity and Increase activity as tolerated Patient Instructions: Amlodipine (By mouth), Pantoprazole (By mouth), Vitamin B-12 (By mouth), Cholecalciferol (By mouth) (D-3, [employer] Blend Super Strength..., Pancreatitis (DC), Iron Deficiency Anemia (GEN), Opioid Safety Discharge Attestations Time Spent in Discharge Care*: greater than 30 min Specific Discharge Activities: educating patient, discussing with pcp/other providers, discussing with telehealth case manager/social workers/dc planners, documenting/other paperwork and evaluating patient/reviewing data Status at Discharge: Cognitive status at discharge: cognitively intact , Behavioral status at discharge: cooperative , Functional status at discharge: independent ambulation , Overall status at discharge: patient is back to baseline Quality Metrics Clinical Quality Measures [ No reported AMI, CVA or VTE this stay] Coding Level of Care Code 44847 Total time (in minutes) for Discharge: 60 Diagnoses Anemia D50.9 Anemia type: iron deficiency Iron deficiency anemia type: unspecified iron deficiency History of partial gastrectomy Z90.3 B12 deficiency E53.8 Iron deficiency anemia D50.9 Transfusion of blood during current hospitalisation
[2022-11-12 07:20] LABS: Fecal Fat, Qualitative Abnormal (Normal)
[2022-11-12 10:39] LABS: Vitamin A (Retinol) 53 mcg/dL (38-98)
[2022-11-12 21:05] LABS: Vitamin K 97 pg/mL (130-1500)
== END 2022-11-06 13:44 | disposition home or self-care (01) ==
LOC: ER 16:07 → MEDSURG 16:26
PROVIDERS: Admitting Provider Student in an Organized Health Care Education/Training Program; Emergency Provider Emergency Medicine; PCP Family Medicine; Visit Provider Student in an Organized Health Care Education/Training Program
DX: D50.9 Iron deficiency anemia, unspecified (principal); E53.8 Deficiency of other specified B group vitamins; I10 Essential (primary) hypertension; N26.1 Atrophy of kidney (terminal); I07.1 Rheumatic tricuspid insufficiency; I37.1 Nonrheumatic pulmonary valve insufficiency; I27.20 Pulmonary hypertension, unspecified; Z85.3 Personal history of malignant neoplasm of breast; Z90.13 Acquired absence of bilateral breasts and nipples; Z90.3 Acquired absence of stomach [part of]; Z88.2 Allergy status to sulfonamides; Z80.3 Family history of malignant neoplasm of breast
CPT/HCPCS: 36415; 36430; 71260; 73620; 74177; 80053; 80061; 81001; 82274; 82306; 82607; 82705; 82746; 82977; 83010; 83036; 83540; 83615; 83735; 84100; 84443; 84590; 84597; 85025; 85730; 86850; 86900; 86920; 93306; 94664; 96360; 96361; 96372; 99285; C9113; G0378; J0360; J1756; J3420; P9016; Q9967

== ENCOUNTER → 2022-11-10 14:16 | Outpatient (BNVA) | payer MEDICARE, SELFPAY | PROVIDERS: PCP Family Medicine; Visit Provider Podiatrist Foot & Ankle Surgery | DX: M72.2 Plantar fascial fibromatosis (principal); M24.572 Contracture, left ankle | CPT/HCPCS: 99203 ==

== ENCOUNTER 2022-12-30 08:13 | Oncology outpatient (recurring) (ONCR) | payer MEDICARE, SELFPAY ==
[2022-12-22 09:50] LABS: Basophils # 0.1 10^3/uL (0.0-0.1); Basophils % 0.8 %; Eosinophils # 0.2 10^3/uL (0.0-0.8); Eosinophils % 2.9 %; Hematocrit 29.4 % (37.0-47.0); Hemoglobin 8.2 g/dL (11.5-15.3); Lymphocytes # 0.9 10^3/uL (0.8-4.8); Lymphocytes % 13.6 %; Mean Corpuscular HGB Conc 27.9 g/dL (30.0-36.0); Mean Corpuscular Hemoglobin 21.9 pg (28.0-34.0); Mean Corpuscular Volume 78.6 fl (81-99); Mean Platelet Volume 9.8 fL (7.4-10.4); Monocytes # 0.6 10^3/uL (0.2-0.9); Neutrophils # 4.81 10^3/uL (1.8-7.7); Neutrophils % 73.5 %; Nucleated Red Blood Cells % 0 %; Platelet Count 300 10^3/cmm (130-400); Red Blood Count 3.74 10^6/uL (4.1-5.3); Red Cell Distribution Width 23.9 % (12.1-15.1); White Blood Count 6.5 10^3/uL (4.0-10.0)
[2022-12-30 08:47] LABS: Basophils # 0.1 10^3/uL (0.0-0.1); Basophils % 0.9 %; Eosinophils # 0.2 10^3/uL (0.0-0.8); Eosinophils % 2.6 %; Hematocrit 33.4 % (37.0-47.0); Hemoglobin 9.4 g/dL (11.5-15.3); Lymphocytes # 0.9 10^3/uL (0.8-4.8); Lymphocytes % 15.9 %; Mean Corpuscular HGB Conc 28.1 g/dL (30.0-36.0); Mean Corpuscular Hemoglobin 23.1 pg (28.0-34.0); Mean Corpuscular Volume 82.1 fl (81-99); Mean Platelet Volume 10.5 fL (7.4-10.4); Monocytes # 0.5 10^3/uL (0.2-0.9); Monocytes % 8.6 %; Neutrophils # 4.19 10^3/uL (1.8-7.7); Neutrophils % 71.7 %; Nucleated Red Blood Cells % 0 %; Platelet Count 259 10^3/cmm (130-400); Red Blood Count 4.07 10^6/uL (4.1-5.3); Red Cell Distribution Width 26.8 % (12.1-15.1); White Blood Count 5.8 10^3/uL (4.0-10.0)
== END 2022-12-31 23:59 | disposition home or self-care (01) ==
PROVIDERS: PCP Family Medicine; Visit Provider Internal Medicine Medical Oncology
DX: D50.9 Iron deficiency anemia, unspecified (principal)
CPT/HCPCS: 36415; 80053; 82607; 82728; 82746; 83540; 83550; 85025; 99205

== ENCOUNTER 2023-01-12 14:30 | Oncology outpatient (recurring) (ONCR) | payer MEDICARE, SELFPAY ==
[2023-01-05 07:30] VITALS: BP 181/74; PULSE 64; RESP 18; TEMP 36.6; O2SAT 93
[2023-01-05 07:48] LABS: Basophils # 0.1 10^3/uL (0.0-0.1); Basophils % 0.8 %; Eosinophils # 0.1 10^3/uL (0.0-0.8); Eosinophils % 2.2 %; Hematocrit 34.5 % (37.0-47.0); Hemoglobin 9.8 g/dL (11.5-15.3); Lymphocytes # 0.8 10^3/uL (0.8-4.8); Lymphocytes % 11.8 %; Mean Corpuscular HGB Conc 28.4 g/dL (30.0-36.0); Mean Corpuscular Hemoglobin 23.8 pg (28.0-34.0); Mean Corpuscular Volume 83.9 fl (81-99); Mean Platelet Volume 9.5 fL (7.4-10.4); Monocytes # 0.4 10^3/uL (0.2-0.9); Monocytes % 6.7 %; Neutrophils # 5.01 10^3/uL (1.8-7.7); Nucleated Red Blood Cells % 0 %; Platelet Count 217 10^3/cmm (130-400); Red Blood Count 4.11 10^6/uL (4.1-5.3); Red Cell Distribution Width 25.3 % (12.1-15.1); White Blood Count 6.4 10^3/uL (4.0-10.0)
[2023-01-12 13:58] VITALS: BP 204/71; PULSE 68; RESP 16; TEMP 36.4; O2SAT 99
--- NOTE | 2023-01-12 14:00 | PC.NURSE ---
lab drawn via RAC x1 attempt, tolerated well.
[2023-01-12 14:11] LABS: Basophils # 0.1 10^3/uL (0.0-0.1); Eosinophils # 0.1 10^3/uL (0.0-0.8); Eosinophils % 2.2 %; Hemoglobin 10.4 g/dL (11.5-15.3); Lymphocytes # 1.1 10^3/uL (0.8-4.8); Lymphocytes % 17.8 %; Mean Corpuscular HGB Conc 28.9 g/dL (30.0-36.0); Mean Corpuscular Hemoglobin 24.1 pg (28.0-34.0); Mean Corpuscular Volume 83.5 fl (81-99); Mean Platelet Volume 9.7 fL (7.4-10.4); Monocytes # 0.4 10^3/uL (0.2-0.9); Monocytes % 6.4 %; Neutrophils % 72.3 %; Nucleated Red Blood Cells % 0 %; Platelet Count 248 10^3/cmm (130-400); Red Blood Count 4.31 10^6/uL (4.1-5.3); Red Cell Distribution Width 22.9 % (12.1-15.1); White Blood Count 6.2 10^3/uL (4.0-10.0)
[2023-01-12 14:30] LABS: Alanine Aminotransferase 11 U/L (0-33); Albumin Level 4.1 g/dL (3.5-5.2); Alkaline Phosphatase 80 U/L (35-105); Aspartate Amino Transferase 14 U/L (0-32); Blood Urea Nitrogen 29 mg/dL (8-23); Calcium 8.7 mg/dL (8.5-10.5); Carbon Dioxide 22 mmol/L (22-29); Chloride 108 mmol/L (98-107); Globulin 2.3 g/dL (1.3-4.6); Glucose 81 mg/dL (65-115); Osmolality Calculated 293 mOsm/kg (285-295); Sodium 139 mmol/L (136-145); Total Bilirubin 0.2 mg/dL (0.15-1.2); Total Protein 6.4 g/dL (6.6-8.7)
[2023-01-12 16:12] LABS: Ferritin 35 ng/mL (15-150); Iron 24 ug/dL (37-145); Total Iron Binding Capacity 299 mcg/dl; Unsaturated Iron Binding 275 ug/dL (112-347)
== END 2023-01-30 23:59 | disposition home or self-care (01) ==
PROVIDERS: PCP Family Medicine; Visit Provider Internal Medicine Medical Oncology
DX: D50.9 Iron deficiency anemia, unspecified (principal); Z79.899 Other long term (current) drug therapy
CPT/HCPCS: 36415; 80053; 82728; 83540; 83550; 85025; 99214

== ENCOUNTER 2023-04-29 12:30 | Oncology outpatient (recurring) (ONCR) | payer MEDICARE, SELFPAY ==
[2023-04-09 09:12] VITALS: BP 195/73; PULSE 64; RESP 16; TEMP 36.6; O2SAT 99; BMI 23.8
[2023-04-09 09:29] LABS: Basophils % 0.8 %; Eosinophils # 0.1 10^3/uL (0.0-0.8); Hematocrit 29.7 % (36-47); Lymphocytes # 0.8 10^3/uL (0.8-4.8); Lymphocytes % 16.4 %; Mean Corpuscular HGB Conc 29.6 g/dL (30-55); Mean Corpuscular Volume 84.4 fl (85-98); Mean Platelet Volume 10.3 fL (7.4-10.4); Monocytes # 0.5 10^3/uL (0.2-0.9); Monocytes % 9.4 %; Neutrophils # 3.55 10^3/uL (1.8-7.7); Neutrophils % 71.2 %; Nucleated Red Blood Cells % 0 %; Platelet Count 264 10^3/cmm (157-399); Red Blood Count 3.52 10^6/uL (3.85-5.65); Red Cell Distribution Width 15.9 % (12.1-15.1); White Blood Count 4.99 10^3/uL (3.29-11.43)
[2023-04-09 09:50] LABS: Alanine Aminotransferase 11 U/L (0-33); Albumin Level 3.4 g/dL (3.5-5.2); Alkaline Phosphatase 89 U/L (35-105); Aspartate Amino Transferase 12 U/L (0-32); Blood Urea Nitrogen 14 mg/dL (8-23); Calcium 8.3 mg/dL (8.5-10.5); Carbon Dioxide 24 mmol/L (22-29); Chloride 108 mmol/L (98-107); Ferritin 23 ng/mL (15-150); Globulin 2.3 g/dL (1.3-4.6); Glucose 80 mg/dL (65-115); Iron 22 ug/dL (37-145); Osmolality Calculated 287 mOsm/kg (285-295); Sodium 139 mmol/L (136-145); Total Bilirubin 0.2 mg/dL (0.15-1.2); Total Iron Binding Capacity 242 mcg/dl; Total Protein 5.7 g/dL (6.6-8.7); Unsaturated Iron Binding 220 ug/dL (112-347)
[2023-04-09 12:13] LABS: Vitamin B12 1359 pg/mL (232-1245)
[2023-04-20 13:49] VITALS: BP 180/72; PULSE 79; RESP 18; TEMP 36.7; O2SAT 99
[2023-04-20] MEDS: sodium chloride 0.9% 250 ML 100 ML IV (13:55)
[2023-04-20] MEDS: iron sucrose 200 MG in sodium chloride 0.9% (100 ml) 100 ML 220 MG IV (13:55)
[2023-04-20 14:27] VITALS: BP 169/72; PULSE 71; RESP 18; TEMP 36.7; O2SAT 96
[2023-04-22 14:04] VITALS: BP 137/65; PULSE 70; RESP 17; TEMP 36.4; O2SAT 100
[2023-04-22] MEDS: sodium chloride 0.9% (100 ml) 100 ML 50 ML (14:13)
[2023-04-22] MEDS: iron sucrose 200 MG in sodium chloride 0.9% (100 ml) 100 ML 220 MG IV (14:18)
[2023-04-22 15:00] VITALS: BP 137/65; PULSE 70; RESP 16; TEMP 36.4; O2SAT 98
[2023-04-24] MEDS: iron sucrose 200 MG in sodium chloride 0.9% (100 ml) 100 ML 220 MG IV (08:37)
[2023-04-24 09:20] VITALS: BP 175/78; PULSE 70; TEMP 36.4
[2023-04-27 12:35] VITALS: BP 184/79; PULSE 78; RESP 16; TEMP 36.6; O2SAT 99
[2023-04-27] MEDS: iron sucrose 200 MG in sodium chloride 0.9% (100 ml) 100 ML 220 MG IV (13:04)
[2023-04-27 13:53] VITALS: BP 174/71; PULSE 102; RESP 18; TEMP 36.6; O2SAT 96
[2023-04-29] MEDS: iron sucrose 200 MG in sodium chloride 0.9% (100 ml) 100 ML 220 MG IV (12:38)
[2023-04-29 13:27] VITALS: BP 194/74; PULSE 70
== END 2023-05-02 23:59 | disposition home or self-care (01) ==
PROVIDERS: PCP Family Medicine; Visit Provider Internal Medicine Medical Oncology
DX: D50.9 Iron deficiency anemia, unspecified (principal)
CPT/HCPCS: 36415; 80053; 82607; 82728; 83540; 83550; 85025; 96365; 99214; J1756; J7050

== ENCOUNTER 2023-05-28 11:45 | Oncology outpatient (recurring) (ONCR) | payer MEDICARE, SELFPAY ==
[2023-05-14 15:42] LABS: Basophils % 0.6 %; Eosinophils # 0.1 10^3/uL (0.0-0.8); Eosinophils % 2.1 %; Hematocrit 30.1 % (36-47); Lymphocytes # 0.8 10^3/uL (0.8-4.8); Lymphocytes % 15.1 %; Mean Corpuscular HGB Conc 29.9 g/dL (30-55); Mean Corpuscular Hemoglobin 26.3 pg (27-33); Mean Platelet Volume 10.7 fL (7.4-10.4); Monocytes # 0.4 10^3/uL (0.2-0.9); Monocytes % 6.9 %; Neutrophils # 4.03 10^3/uL (1.8-7.7); Neutrophils % 75.1 %; Nucleated Red Blood Cells % 0 %; Platelet Count 231 10^3/cmm (157-399); Red Blood Count 3.42 10^6/uL (3.85-5.65); Red Cell Distribution Width 19.6 % (12.1-15.1); White Blood Count 5.36 10^3/uL (3.29-11.43)
[2023-05-14 16:14] LABS: Alanine Aminotransferase 11 U/L (0-33); Albumin Level 3.6 g/dL (3.5-5.2); Alkaline Phosphatase 103 U/L (35-105); Anion Gap 12.9 (5-19); Aspartate Amino Transferase 13 U/L (0-32); Blood Urea Nitrogen 24 mg/dL (8-23); Calcium 8.3 mg/dL (8.5-10.5); Carbon Dioxide 25 mmol/L (22-29); Chloride 112 mmol/L (98-107); Ferritin 51 ng/mL (15-150); Globulin 2.3 g/dL (1.3-4.6); Glucose 89 mg/dL (65-115); Iron 48 ug/dL (37-145); Osmolality Calculated 306 mOsm/kg (285-295); Percent Saturation 21.3 % (20-50); Potassium 3.9 mmol/L (3.5-5.1); Sodium 146 mmol/L (136-145); Total Bilirubin 0.2 mg/dL (0.15-1.2); Total Iron Binding Capacity 225 mcg/dl; Total Protein 5.9 g/dL (6.6-8.7); Unsaturated Iron Binding 177 ug/dL (112-347)
== END 2023-06-02 23:59 | disposition home or self-care (01) ==
PROVIDERS: PCP Family Medicine; Visit Provider Internal Medicine Medical Oncology
DX: D64.9 Anemia, unspecified (principal)
CPT/HCPCS: 36415; 80053; 82274; 82728; 83540; 83550; 85025; 99214

== ENCOUNTER → 2023-06-15 11:00 | Outpatient (BNVA) | payer MEDICARE, SELFPAY | PROVIDERS: PCP Family Medicine; Visit Provider Family Medicine | DX: D50.9 Iron deficiency anemia, unspecified (principal) | CPT/HCPCS: 82728; 83550; 85025 ==

== ENCOUNTER 2023-06-30 09:00 | Oncology outpatient (recurring) (ONCR) | payer MEDICARE, SELFPAY ==
--- NOTE | 2023-06-23 13:47 | PC.NURSE ---
Patient came today for her iron infusion and brought her service dog. I let the patient know that the dog would not be able to come into the infusion suite and she let me know that he is a licensed service dog. I let Kim Loya RN and she went and spoke to Berhane Leyva RN about it. Berhane Leyva RN came back and spoke to the patient about he service dog not being able to be with her for her 20 minute infusion as we do sterile procedures in here. Patient did not want to stay for her iron infusion since her dog could not stay with her. Patient left via wheel chair with her service dog and .
[2023-06-23] MEDS: sodium chloride 0.9% 250 ML 75 ML IV (13:57)
[2023-06-23] MEDS: ferumoxytol (NON-ESRD) 510 MG in sodium chloride 0.9% (100 ml) 100 ML 351 MG IV (13:57)
[2023-06-23 14:39] VITALS: BP 173/81; PULSE 73; TEMP 36.7; O2SAT 98
[2023-06-30 09:39] VITALS: BP 195/74; PULSE 71; RESP 71; TEMP 36.6; O2SAT 99
[2023-06-30] MEDS: sodium chloride 0.9% 250 ML 100 ML IV (10:05)
[2023-06-30] MEDS: ferumoxytol (NON-ESRD) 510 MG in sodium chloride 0.9% (100 ml) 100 ML 351 MG IV (10:05)
[2023-06-30 10:32] VITALS: BP 188/73; PULSE 65; RESP 17; TEMP 36.9; O2SAT 99
== END 2023-07-02 23:59 | disposition home or self-care (01) ==
PROVIDERS: PCP Family Medicine; Visit Provider Internal Medicine Medical Oncology
DX: D50.9 Iron deficiency anemia, unspecified (principal)
CPT/HCPCS: 96365; J7050; Q0138

== ENCOUNTER 2023-07-15 14:54 | Outpatient (CLI) | payer MEDICARE, SELFPAY ==
--- NOTE | 2023-07-15 16:30 | CTR_ITS ---
PROCEDURE INFORMATION: Exam: CT Chest With Contrast; Diagnostic Exam date and time: 07/15/2023 4:57 PM Age: 78 years old Clinical indication: Condition or disease; Other: Colon, breast; Other: Colon cancer, breast cancer; Follow-up oncological assessment; Prior surgery; Surgery date: 6+ months; Surgery type: Bilat breast, colon, hemrrhoids, hyst, appy; Additional info: Staging TECHNIQUE: Imaging protocol: Diagnostic computed tomography of the chest with contrast. Radiation optimization: All CT scans at this facility use at least one of these dose optimization techniques: automated exposure control; mA and/or kV adjustment per patient size (includes targeted exams where dose is matched to clinical indication); or iterative reconstruction. Contrast material: OMNI 350; Contrast volume: 95 ml; Contrast route: INTRAVENOUS (IV); REPORTING DATA: Count of CT and Cardiac NM exams in prior 12 months: This patient has received 2 known CTs and 0 known cardiac nuclear medicine studies in the 12 months prior to the current study. COMPARISON: 1. CT chest abdpel w/*[id number] 11/05/2022 5:[address] chest wo con [id number] 10/09/2022 2:17 PM RADIATION DOSE METRICS: Total DLP (mGy-cm): 550.68 FINDINGS: Lungs: Trace area of scarring in the right lung apex, decreased in size compared to prior exam (axial series 5, image 15). Pleural spaces: Unremarkable. No pneumothorax. No pleural effusion. Heart: The heart is within normal limits for size. There is no evidence of pericardial abnormality. Lymph nodes: Unremarkable. No enlarged lymph nodes. Vasculature: Unremarkable. No aortic aneurysm. Bones/joints: Multilevel degenerative changes in the spine. Soft tissues: Unremarkable. PROCEDURE INFORMATION: Exam: CT Abdomen And Pelvis With Contrast Exam date and time: 07/15/2023 4:57 PM Age: 78 years old Clinical indication: Condition or disease; Other: Colon, breast; Other: Colon cancer, breast cancer; Follow-up oncological assessment; Prior surgery; Surgery date: 6+ months; Surgery type: Bilat breast, colon, hemrrhoids, hyst, appy; Additional info: Staging TECHNIQUE: Imaging protocol: Computed tomography of the abdomen and pelvis with contrast. Radiation optimization: All CT scans at this facility use at least one of these dose optimization techniques: automated exposure control; mA and/or kV adjustment per patient size (includes targeted exams where dose is matched to clinical indication); or iterative reconstruction. Contrast material: OMNI 350; Contrast volume: 95 ml; Contrast route: INTRAVENOUS (IV); REPORTING DATA: Count of CT and Cardiac NM exams in prior 12 months: This patient has received 2 known CTs and 0 known cardiac nuclear medicine studies in the 12 months prior to the current study. COMPARISON: CT chest abdpel w/*[id number] 11/05/2022 5:08 PM RADIATION DOSE METRICS: Total DLP (mGy-cm): 550.68 FINDINGS: Liver: Interval development of a 2.1 cm hypoattenuating mass in hepatic segment 8 of the liver, with minimal distal/peripheral hypoattenuation extending to the liver margin. Interval development of a 1.7 cm hypoattenuating mass in segment 7 of the liver. Interval development of a 1.8 cm mass in hepatic segment 6. Fluid density cyst again noted in hepatic segment 3 of the liver similar to prior exam. Gallbladder and bile ducts: The gallbladder is partially contracted but appears unremarkable. Pancreas: The pancreas appears normal. Spleen: The spleen appears normal. Adrenal glands: The adrenals appear normal. Kidneys and ureters: The left kidney is atrophic compared to the right. 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 Stomach and bowel: The stomach is well distended with ingested material. Prominent circumferential wall thickening in the duodenum and proximal jejunum again noted similar to prior exam, with no significant surrounding inflammatory changes. The small bowel loops are not abnormally dilated. The large bowel loops are not abnormally dilated. Appendix: The appendix appears normal. Intraperitoneal space: No ascites or significant fluid collection. Vasculature: The aorta is nonaneurysmal. The IVC appears normal. Lymph nodes: Right lower quadrant mass /lymph node measuring 2.8 x 1.7 x 1.4 cm (axial series 6, image 51) adjacent to the cecum, increased in size compared to prior exam when it measured 1.6 x 1.3 x 1.1 cm. 10 mm solid nodule in the right lower quadrant (axial series 6, image 59), along the posterior margin of the cecum likely an enlarged lymph node. 9 mm solid nodule in the anterior right abdomen mesenteric region (axial series 6, image 46) likely a enlarged lymph node. Urinary bladder: The urinary bladder is not well distended, therefore not well evaluated. Reproductive: Unremarkable as visualized. Bones/joints: Multilevel degenerative changes in the spine. Soft tissues: Unremarkable. CT/CT chest abdpel w/*[id number] IMPRESSION: No signs of metastatic disease within the chest. IMPRESSION: 1. Interval development of multiple masses within the liver concerning for metastatic disease. 2. Increasing abdominopelvic lymphadenopathy. 3. Prominent circumferential wall thickening in the duodenum and proximal jejunum, of indeterminate etiology again noted and similar to prior exam, with no significant surrounding inflammatory changes.
[2023-07-15 16:53] LABS: Blood Urea Nitrogen 20 mg/dL (8-23)
[2023-07-15] MEDS: iohexol 350 mg/mL 500 mL Btl (per mL) IV (17:11)
[2023-07-15] MEDS: iohexol 350 mg/mL 500 mL Btl (per mL) PO (17:11)
== END 2023-07-15 14:55 | disposition home or self-care (01) ==
LOC: RAD 14:54
PROVIDERS: PCP Family Medicine; Visit Provider Internal Medicine Medical Oncology
DX: C18.0 Malignant neoplasm of cecum (principal); R16.0 Hepatomegaly, not elsewhere classified; R59.0 Localized enlarged lymph nodes
CPT/HCPCS: 71260; 74177; 82565; 84520; Q9967

== ENCOUNTER 2023-07-22 09:30 | Oncology outpatient (recurring) (ONCR) | payer MEDICARE, SELFPAY ==
[2023-07-07 09:10] VITALS: BP 156/74; PULSE 67; RESP 16; TEMP 35.8; O2SAT 95
[2023-07-07 09:24] LABS: Basophils # 0.1 10^3/uL (0.0-0.1); Basophils % 1.3 %; Eosinophils # 0.2 10^3/uL (0.0-0.8); Eosinophils % 3.4 %; Lymphocytes # 0.7 10^3/uL (0.8-4.8); Lymphocytes % 13.1 %; Mean Corpuscular HGB Conc 28.6 g/dL (30-55); Mean Corpuscular Hemoglobin 25.8 pg (27-33); Mean Corpuscular Volume 90.2 fl (85-98); Monocytes # 0.4 10^3/uL (0.2-0.9); Monocytes % 6.8 %; Neutrophils # 4.18 10^3/uL (1.8-7.7); Neutrophils % 75.2 %; Nucleated Red Blood Cells % 0 %; Platelet Count 259 10^3/cmm (157-399); Red Blood Count 3.88 10^6/uL (3.85-5.65); Red Cell Distribution Width 21.3 % (12.1-15.1); White Blood Count 5.56 10^3/uL (3.29-11.43)
[2023-07-07 09:43] LABS: Ferritin 250 ng/mL (15-150); Iron 47 ug/dL (37-145); Total Iron Binding Capacity 247 mcg/dl; Unsaturated Iron Binding 200 ug/dL (112-347)
[2023-07-07 13:35] LABS: Carcinoembryonic Antigen 114.7 ng/mL (0.0-4.7)
[2023-07-22 10:05] VITALS: BP 103/71; PULSE 120; RESP 18; O2SAT 98
[2023-07-22 10:13] LABS: Basophils # 0.1 10^3/uL (0.0-0.1); Basophils % 0.9 %; Eosinophils # 0.1 10^3/uL (0.0-0.8); Eosinophils % 1.7 %; Hematocrit 37.6 % (36-47); Lymphocytes # 0.7 10^3/uL (0.8-4.8); Lymphocytes % 13.3 %; Mean Corpuscular HGB Conc 30.3 g/dL (30-55); Mean Corpuscular Hemoglobin 27.4 pg (27-33); Mean Corpuscular Volume 90.4 fl (85-98); Mean Platelet Volume 9.4 fL (7.4-10.4); Monocytes # 0.3 10^3/uL (0.2-0.9); Monocytes % 5.5 %; Neutrophils # 4.15 10^3/uL (1.8-7.7); Neutrophils % 78.6 %; Nucleated Red Blood Cells % 0 %; Platelet Count 227 10^3/cmm (157-399); Red Blood Count 4.16 10^6/uL (3.85-5.65); Red Cell Distribution Width 18.6 % (12.1-15.1); White Blood Count 5.28 10^3/uL (3.29-11.43)
[2023-07-22 10:35] LABS: Alanine Aminotransferase 14 U/L (0-33); Alkaline Phosphatase 110 U/L (35-105); Anion Gap 12.6 (5-19); Aspartate Amino Transferase 15 U/L (0-32); Blood Urea Nitrogen 17 mg/dL (8-23); Calcium 9.1 mg/dL (8.5-10.5); Carbon Dioxide 23 mmol/L (22-29); Chloride 110 mmol/L (98-107); Ferritin 103 ng/mL (15-150); Globulin 2.9 g/dL (1.3-4.6); Glucose 122 mg/dL (65-115); Iron 40 ug/dL (37-145); Osmolality Calculated 297 mOsm/kg (285-295); Percent Saturation 15.5 % (20-50); Potassium 3.6 mmol/L (3.5-5.1); Sodium 142 mmol/L (136-145); Total Bilirubin 0.2 mg/dL (0.15-1.2); Total Iron Binding Capacity 257 mcg/dl; Total Protein 6.9 g/dL (6.6-8.7); Unsaturated Iron Binding 217 ug/dL (112-347)
[2023-07-22 13:18] LABS: Carcinoembryonic Antigen 134.5 ng/mL (0.0-4.7)
== END 2023-08-02 23:59 | disposition home or self-care (01) ==
PROVIDERS: PCP Family Medicine; Visit Provider Internal Medicine Medical Oncology
DX: D50.9 Iron deficiency anemia, unspecified (principal); Z53.9 Procedure and treatment not carried out, unspecified reason; C18.0 Malignant neoplasm of cecum; Z79.899 Other long term (current) drug therapy
CPT/HCPCS: 36415; 80053; 82378; 82728; 83540; 83550; 85025; 99214; 99215

== ENCOUNTER → 2023-08-06 14:06 | Outpatient (BNVA) | payer MEDICARE, SELFPAY | PROVIDERS: PCP Family Medicine; Visit Provider Surgery | DX: Z95.828 Presence of other vascular implants and grafts (principal) | CPT/HCPCS: 99204 ==

== ENCOUNTER 2023-08-10 10:25 | Oncology outpatient (recurring) (ONCR) | payer MEDICARE, SELFPAY | END 2023-09-02 23:59 | disposition home or self-care (01) | PROVIDERS: PCP Family Medicine; Visit Provider Internal Medicine Medical Oncology | DX: D50.9 Iron deficiency anemia, unspecified (principal); C18.0 Malignant neoplasm of cecum; Z79.899 Other long term (current) drug therapy; D64.9 Anemia, unspecified; Z85.3 Personal history of malignant neoplasm of breast | CPT/HCPCS: 99214 ==

== ENCOUNTER 2023-10-01 08:46 | Oncology outpatient (recurring) (ONCR) | payer MEDICARE, SELFPAY ==
[2023-09-17 15:05] LABS: Basophils % 0.8 %; Eosinophils # 0.1 10^3/uL (0.0-0.8); Eosinophils % 1.1 %; Hematocrit 30.5 % (36-47); Lymphocytes # 0.8 10^3/uL (0.8-4.8); Lymphocytes % 15.3 %; Mean Corpuscular HGB Conc 31.1 g/dL (30-55); Mean Corpuscular Hemoglobin 26.8 pg (27-33); Mean Corpuscular Volume 85.9 fl (85-98); Mean Platelet Volume 10.5 fL (7.4-10.4); Monocytes # 0.3 10^3/uL (0.2-0.9); Monocytes % 5.9 %; Neutrophils # 3.99 10^3/uL (1.8-7.7); Neutrophils % 76.5 %; Nucleated Red Blood Cells % 0 %; Platelet Count 270 10^3/cmm (157-399); Red Blood Count 3.55 10^6/uL (3.85-5.65); Red Cell Distribution Width 15.1 % (12.1-15.1); White Blood Count 5.22 10^3/uL (3.29-11.43)
[2023-09-17 15:33] LABS: Alanine Aminotransferase 14 U/L (0-33); Albumin Level 3.3 g/dL (3.5-5.2); Alkaline Phosphatase 119 U/L (35-105); Anion Gap 11.8 (5-19); Aspartate Amino Transferase 19 U/L (0-32); Blood Urea Nitrogen 21 mg/dL (8-23); Calcium 8.6 mg/dL (8.5-10.5); Carbon Dioxide 25 mmol/L (22-29); Chloride 104 mmol/L (98-107); Globulin 2.9 g/dL (1.3-4.6); Glucose 126 mg/dL (65-115); Osmolality Calculated 289 mOsm/kg (285-295); Potassium 3.8 mmol/L (3.5-5.1); Sodium 137 mmol/L (136-145); Total Bilirubin 0.2 mg/dL (0.15-1.2); Total Protein 6.2 g/dL (6.6-8.7)
[2023-09-17 16:14] LABS: Carcinoembryonic Antigen 180.1 ng/mL (0.0-4.7)
[2023-09-17 17:35] LABS: Ferritin 54 ng/mL (15-150); Iron 21 ug/dL (37-145); Percent Saturation 10.2 % (20-50); Total Iron Binding Capacity 205 mcg/dl; Unsaturated Iron Binding 184 ug/dL (112-347)
== END 2023-10-01 23:59 | disposition home or self-care (01) ==
PROVIDERS: PCP Family Medicine; Visit Provider Internal Medicine Medical Oncology
DX: C18.0 Malignant neoplasm of cecum (principal); R22.32 Localized swelling, mass and lump, left upper limb; R16.0 Hepatomegaly, not elsewhere classified; Z79.899 Other long term (current) drug therapy
CPT/HCPCS: 36415; 80053; 82378; 82728; 83540; 83550; 85025; 99214

== ENCOUNTER 2023-10-09 14:07 | Outpatient (CLI) | payer MEDICARE, SELFPAY ==
--- NOTE | 2023-10-09 15:30 | CT_ITS ---
WS: [id number] CT ABDOMEN AND PELVIS WITH CONTRAST HISTORY: colon cancer TECHNIQUE: Imaging performed of the abdomen and pelvis with IV contrast. Single phase imaging of the abdomen. Coronal and sagittal reformats are submitted. All CT scans at [facility] use at [address] one of these dose optimization techniques: automated exposure control; mA and/or kV adjustment per patient size (includes targeted exams where dose is matched to clinical indication); or iterative re construction. IV CONTRAST: Omnipaque 350; 100 mL IV. Oral contrast: Yes. DLP: 265.23 mGy.cm COMPARISON: 07/15/2023, 11/05/2022 Lower thorax: Lung bases are clear. Heart is normal size. Small hiatal hernia. Liver/biliary system: Multiple metastatic sites are reidentified within the liver. These sites have i ncreased in size since 07/15/2023. The largest metastatic lesion is in the superior liver towards the diaphragmatic surface measuring 3.6 x 2.4 x 4.6 cm. This compares to 2.7 x 2.0 x 3.1 cm on the prior study. There are additional metastatic nodules and cysts also. The cysts are stable. The metastatic sites have all increased in size. No bile duct dilatation. Portal vein is normal. Gallbladder: Mildly contracted. Pancreas: No pancreatic abnormality. No pancreatic duct dilatation. Similar to the prior study. Spleen: Normal size spleen. No mass or infarct. Adrenal glands: Normal. Right kidney: Normal size kidney, 11.0 cm in length. Upper pole cyst measures 1.0 x 0.8 cm. No solid mass. Small extrarenal pelvis. No obstruction. Left kidney: 6.9 cm in length. Diffuse cortical thinning. There are multiple central renal calcificat ions. Developing into a staghorn calculus with a few small cortical cysts. No obstruction. Aorta: Mild atherosclerosis with no aneurysm. Lymphadenopathy/GI tract: Small retrocrural lymph nodes. There are a few small mesenteric lymph nodes centrally. Small retroperitoneal lymph nodes. Increasing dolores burden/metastatic deposits in the RIG HT lower quadrant since the prior examination. In the RIGHT lower quadrant there is a dominant 3.2 x 2.0 cm metastatic deposit which has increased in size from 2.8 x 1.5 cm. There are additional smaller metastatic sites in the RIGHT lower quadrant surrounding the cecum. There is cecal wall thickening a nd soft tissue extension along the medial ascending colon highly suspicious for tumor involvement and progression. Near the cecum and the terminal ileum there is a lesion extending over a length of 5.2 cm suspicious for an neoplasm. There is extensive severe obstipation and constipation. Marked distent ion of the stomach with food products. There is circumferential wall thickening of the duodenum and p roximal small bowel. Distal colon is markedly tortuous and distended. Free fluid: None. GI tract: See above under lymphadenopathy section. Abdominal wall: Unremarkable abdominal wall. No hernia. Pelvis: No free fluid. Urinary bladder is distended. Bones: L4 anterolisthesis by 4 mm. Known osteoblastic and osteolytic changes in a pattern for metasta tic disease. There is very minimal sclerosis in S1 which is unchanged and indeterminate. No lytic les ions. IMPRESSION: 1. Known metastatic liver disease has progressed since 07/15/2023. 2. Metastatic deposit/probably lymph nodes in the RIGHT lower quadrant have increased in size and nu mber. There is additional adjacent cecal wall thickening extending along the medial ascending colon. There is a segment extending over a length length of 5.2 cm near the cecum and terminal ileum. Suspic ious for colon neoplasm. 3. No ascites. 4. Normal portal vein. 5. Diffuse cortical thinning LEFT kidney with atrophy and staghorn calculus. No obstruction. 6. Severe stomach distention with food products and oral contrast. There is severe obstipation and c onstipation involving the colon. 7. Circumferential wall thickening involving the duodenum has progressed since the prior study. Due to the long segment this is not likely neoplastic.
[2023-10-09] MEDS: iohexol 350 mg/mL 500 mL Btl (per mL) IV (15:43)
[2023-10-09] MEDS: iohexol 350 mg/mL 500 mL Btl (per mL) PO (15:44)
== END 2023-10-09 14:08 | disposition home or self-care (01) ==
LOC: RAD 14:08
PROVIDERS: PCP Family Medicine; Visit Provider Internal Medicine Medical Oncology
DX: C18.0 Malignant neoplasm of cecum (principal); C78.7 Secondary malignant neoplasm of liver and intrahepatic bile duct; D63.0 Anemia in neoplastic disease
CPT/HCPCS: 74177; Q9967

== ENCOUNTER → 2023-10-13 09:16 | Outpatient (BNVA) | payer MEDICARE, SELFPAY | PROVIDERS: PCP Family Medicine; Visit Provider Surgery | DX: Z95.828 Presence of other vascular implants and grafts (principal) | CPT/HCPCS: 99215 ==

== ENCOUNTER 2023-10-22 13:00 | Oncology outpatient (recurring) (ONCR) | payer MEDICARE, SELFPAY ==
[2023-10-22 13:26] LABS: Basophils % 0.7 %; Eosinophils # 0.2 10^3/uL (0.0-0.8); Eosinophils % 2.9 %; Hematocrit 24.5 % (36-47); Lymphocytes # 0.7 10^3/uL (0.8-4.8); Lymphocytes % 12.6 %; Mean Corpuscular HGB Conc 28.6 g/dL (30-55); Mean Corpuscular Hemoglobin 23.4 pg (27-33); Mean Corpuscular Volume 81.9 fl (85-98); Mean Platelet Volume 10.2 fL (7.4-10.4); Monocytes # 0.4 10^3/uL (0.2-0.9); Monocytes % 7.6 %; Neutrophils # 4.39 10^3/uL (1.8-7.7); Nucleated Red Blood Cells % 0 %; Platelet Count 289 10^3/cmm (157-399); Red Blood Count 2.99 10^6/uL (3.85-5.65); Red Cell Distribution Width 16.8 % (12.1-15.1); White Blood Count 5.78 10^3/uL (3.29-11.43)
[2023-10-22 13:45] LABS: Alanine Aminotransferase 9 U/L (0-33); Albumin Level 3.6 g/dL (3.5-5.2); Alkaline Phosphatase 116 U/L (35-105); Anion Gap 11.7 (5-19); Aspartate Amino Transferase 12 U/L (0-32); Blood Urea Nitrogen 19 mg/dL (8-23); Calcium 8.4 mg/dL (8.5-10.5); Carbon Dioxide 23 mmol/L (22-29); Chloride 111 mmol/L (98-107); Ferritin 8 ng/mL (15-150); Globulin 2.3 g/dL (1.3-4.6); Glucose 87 mg/dL (65-115); Iron 22 ug/dL (37-145); Osmolality Calculated 296 mOsm/kg (285-295); Percent Saturation 6.9 % (20-50); Potassium 3.7 mmol/L (3.5-5.1); Sodium 142 mmol/L (136-145); Total Bilirubin 0.2 mg/dL (0.15-1.2); Total Iron Binding Capacity 316 mcg/dl; Total Protein 5.9 g/dL (6.6-8.7); Unsaturated Iron Binding 294 ug/dL (112-347)
[2023-10-22] MEDS: ferumoxytol (NON-ESRD) 510 MG in sodium chloride 0.9% (100 ml) 100 ML 351 MG IV (16:16)
[2023-10-22 16:35] VITALS: BP 173/68; PULSE 65; RESP 17; O2SAT 98
== END 2023-11-01 23:59 | disposition home or self-care (01) ==
PROVIDERS: PCP Family Medicine; Visit Provider Internal Medicine Medical Oncology
DX: D50.9 Iron deficiency anemia, unspecified (principal); C18.0 Malignant neoplasm of cecum; Z79.899 Other long term (current) drug therapy; Z85.3 Personal history of malignant neoplasm of breast; Z87.891 Personal history of nicotine dependence
CPT/HCPCS: 36415; 80053; 82728; 83540; 83550; 85025; 96365; 99214; Q0138

== ENCOUNTER 2023-11-12 15:00 | Oncology outpatient (recurring) (ONCR) | payer MEDICARE, SELFPAY ==
[2023-11-02 14:12] VITALS: BP 172/71; PULSE 63; RESP 16; O2SAT 98
[2023-11-02] MEDS: ferumoxytol (NON-ESRD) 510 MG in sodium chloride 0.9% (100 ml) 100 ML 351 MG IV (14:24)
[2023-11-02 14:55] VITALS: BP 133/74; PULSE 74; RESP 18; TEMP 36.6; O2SAT 98
[2023-11-12 15:08] LABS: Basophils # 0.1 10^3/uL (0.0-0.1); Basophils % 0.8 %; Eosinophils # 0.2 10^3/uL (0.0-0.8); Eosinophils % 3.4 %; Hematocrit 30.8 % (36-47); Lymphocytes # 0.9 10^3/uL (0.8-4.8); Mean Corpuscular HGB Conc 29.9 g/dL (30-55); Mean Corpuscular Hemoglobin 26.4 pg (27-33); Mean Corpuscular Volume 88.3 fl (85-98); Mean Platelet Volume 9.9 fL (7.4-10.4); Monocytes # 0.5 10^3/uL (0.2-0.9); Monocytes % 7.8 %; Neutrophils # 4.52 10^3/uL (1.8-7.7); Neutrophils % 73.7 %; Nucleated Red Blood Cells % 0 %; Platelet Count 239 10^3/cmm (157-399); Red Blood Count 3.49 10^6/uL (3.85-5.65); White Blood Count 6.14 10^3/uL (3.29-11.43)
[2023-11-12 15:32] LABS: Carcinoembryonic Antigen 280.2 ng/mL (0.0-4.7)
[2023-11-12 15:44] LABS: Alanine Aminotransferase 11 U/L (0-33); Albumin Level 3.6 g/dL (3.5-5.2); Alkaline Phosphatase 127 U/L (35-105); Aspartate Amino Transferase 20 U/L (0-32); Blood Urea Nitrogen 18 mg/dL (8-23); Calcium 8.7 mg/dL (8.5-10.5); Carbon Dioxide 21 mmol/L (22-29); Chloride 110 mmol/L (98-107); Globulin 2.5 g/dL (1.3-4.6); Glucose 161 mg/dL (65-115); Osmolality Calculated 297 mOsm/kg (285-295); Sodium 141 mmol/L (136-145); Total Bilirubin 0.3 mg/dL (0.15-1.2); Total Protein 6.1 g/dL (6.6-8.7)
== END 2023-12-01 23:59 | disposition home or self-care (01) ==
PROVIDERS: PCP Internal Medicine Medical Oncology; Visit Provider Internal Medicine Medical Oncology
DX: C18.0 Malignant neoplasm of cecum (principal); Z53.9 Procedure and treatment not carried out, unspecified reason
CPT/HCPCS: 36415; 80053; 82378; 85025; 96365; Q0138

== ENCOUNTER 2023-12-29 09:15 | Oncology outpatient (recurring) (ONCR) | payer MEDICARE, SELFPAY ==
[2023-12-02 12:53] LABS: Basophils % 0.6 %; Eosinophils # 0.4 10^3/uL (0.0-0.8); Eosinophils % 6.4 %; Hematocrit 33.8 % (36-47); Lymphocytes # 0.7 10^3/uL (0.8-4.8); Lymphocytes % 10.5 %; Mean Corpuscular HGB Conc 30.2 g/dL (30-55); Mean Corpuscular Hemoglobin 26.2 pg (27-33); Mean Corpuscular Volume 86.9 fl (85-98); Mean Platelet Volume 9.9 fL (7.4-10.4); Monocytes # 0.4 10^3/uL (0.2-0.9); Monocytes % 6.4 %; Neutrophils % 75.9 %; Nucleated Red Blood Cells % 0 %; Platelet Count 262 10^3/cmm (157-399); Red Blood Count 3.89 10^6/uL (3.85-5.65); Red Cell Distribution Width 19.8 % (12.1-15.1); White Blood Count 6.58 10^3/uL (3.29-11.43)
[2023-12-02 13:20] LABS: Alanine Aminotransferase 15 U/L (0-33); Albumin Level 3.5 g/dL (3.5-5.2); Alkaline Phosphatase 154 U/L (35-105); Anion Gap 14.3 (5-19); Aspartate Amino Transferase 18 U/L (0-32); Blood Urea Nitrogen 16 mg/dL (8-23); Calcium 8.4 mg/dL (8.5-10.5); Carbon Dioxide 22 mmol/L (22-29); Chloride 112 mmol/L (98-107); Globulin 2.4 g/dL (1.3-4.6); Glucose 101 mg/dL (65-115); Iron 20 ug/dL (37-145); Osmolality Calculated 299 mOsm/kg (285-295); Percent Saturation 9.8 % (20-50); Potassium 4.3 mmol/L (3.5-5.1); Sodium 144 mmol/L (136-145); Total Bilirubin 0.2 mg/dL (0.15-1.2); Total Iron Binding Capacity 203 mcg/dl; Total Protein 5.9 g/dL (6.6-8.7); Unsaturated Iron Binding 183 ug/dL (112-347)
[2023-12-02 16:22] LABS: Carcinoembryonic Antigen 372.9 ng/mL (0.0-4.7)
[2023-12-10] MEDS: ferric carboxy (IVPB) 750 MG in sodium chloride 0.9% (100 ml) 100 ML 345 MG IV (15:10)
[2023-12-18 08:36] VITALS: BP 183/71; PULSE 18; RESP 65; TEMP 36.7; O2SAT 96
[2023-12-18 08:42] VITALS: BP 157/60
[2023-12-18] MEDS: sodium chloride 0.9% 250 ML 75 ML IV (08:48)
[2023-12-18] MEDS: ferric carboxy (IVPB) 750 MG in sodium chloride 0.9% (100 ml) 100 ML 345 MG IV (08:49)
[2023-12-18 09:17] VITALS: BP 180/76; PULSE 62; RESP 16; TEMP 36.7; O2SAT 99
== END 2024-01-01 23:59 | disposition home or self-care (01) ==
PROVIDERS: Nurse Practitioner Family; PCP Internal Medicine Medical Oncology; Visit Provider Internal Medicine Medical Oncology
DX: Z53.9 Procedure and treatment not carried out, unspecified reason (principal)
CPT/HCPCS: 36415; 80053; 82378; 83540; 83550; 85025; 96365; 99214; J1439; J7050

== ENCOUNTER 2024-01-06 13:35 | Oncology outpatient (recurring) (ONCR) | payer MEDICARE, SELFPAY ==
[2024-01-06 14:42] LABS: Basophils % 0.6 %; Eosinophils # 0.5 10^3/uL (0.0-0.8); Eosinophils % 6.9 %; Hematocrit 30.7 % (36-47); Lymphocytes # 0.6 10^3/uL (0.8-4.8); Lymphocytes % 9.6 %; Mean Corpuscular Volume 96.8 fl (85-98); Mean Platelet Volume 9.7 fL (7.4-10.4); Monocytes # 0.4 10^3/uL (0.2-0.9); Neutrophils % 76.6 %; Nucleated Red Blood Cells % 0 %; Platelet Count 241 10^3/cmm (157-399); Red Blood Count 3.17 10^6/uL (3.85-5.65); Red Cell Distribution Width 18.6 % (12.1-15.1); White Blood Count 6.66 10^3/uL (3.29-11.43)
[2024-01-06 15:09] LABS: Alanine Aminotransferase 14 U/L (0-33); Albumin Level 3.6 g/dL (3.5-5.2); Alkaline Phosphatase 185 U/L (35-105); Aspartate Amino Transferase 16 U/L (0-32); Blood Urea Nitrogen 23 mg/dL (8-23); Calcium 7.8 mg/dL (8.5-10.5); Carbon Dioxide 24 mmol/L (22-29); Chloride 105 mmol/L (98-107); Ferritin 265 ng/mL (15-150); Globulin 2.5 g/dL (1.3-4.6); Glucose 170 mg/dL (65-115); Iron 33 ug/dL (37-145); Osmolality Calculated 300 mOsm/kg (285-295); Percent Saturation 15.2 % (20-50); Sodium 141 mmol/L (136-145); Total Bilirubin 0.2 mg/dL (0.15-1.2); Total Iron Binding Capacity 216 mcg/dl; Total Protein 6.1 g/dL (6.6-8.7); Unsaturated Iron Binding 183 ug/dL (112-347)
[2024-01-07 00:26] LABS: Carcinoembryonic Antigen 473.7 ng/mL (0.0-4.7)
== END 2024-01-31 23:59 | disposition home or self-care (01) ==
PROVIDERS: PCP Internal Medicine Medical Oncology; Visit Provider Internal Medicine Medical Oncology
DX: D50.9 Iron deficiency anemia, unspecified; C18.0 Malignant neoplasm of cecum
CPT/HCPCS: 36415; 80053; 82378; 82728; 83540; 83550; 85025; 99213

== ENCOUNTER 2024-02-01 07:59 | Oncology outpatient (recurring) (ONCR) | payer MEDICARE, SELFPAY ==
[2024-02-01 08:15] VITALS: BP 171/65; PULSE 63; RESP 16; TEMP 36.2; O2SAT 98
[2024-02-01 08:48] LABS: Basophils # 0.1 10^3/uL (0.0-0.1); Basophils % 0.8 %; Eosinophils # 0.5 10^3/uL (0.0-0.8); Eosinophils % 5.7 %; Hematocrit 32.3 % (36-47); Lymphocytes # 0.6 10^3/uL (0.8-4.8); Lymphocytes % 7.1 %; Mean Corpuscular Hemoglobin 28.4 pg (27-33); Mean Corpuscular Volume 94.7 fl (85-98); Mean Platelet Volume 10.4 fL (7.4-10.4); Monocytes # 0.5 10^3/uL (0.2-0.9); Monocytes % 5.8 %; Neutrophils % 80.4 %; Nucleated Red Blood Cells % 0 %; Platelet Count 268 10^3/cmm (157-399); Red Blood Count 3.41 10^6/uL (3.85-5.65); Red Cell Distribution Width 14.9 % (12.1-15.1); White Blood Count 8.96 10^3/uL (3.29-11.43)
[2024-02-01 09:00] LABS: Alanine Aminotransferase 13 U/L (0-33); Albumin Level 3.8 g/dL (3.5-5.2); Alkaline Phosphatase 175 U/L (35-105); Anion Gap 13.5 (5-19); Aspartate Amino Transferase 15 U/L (0-32); Blood Urea Nitrogen 28 mg/dL (8-23); Calcium 8.6 mg/dL (8.5-10.5); Carbon Dioxide 22 mmol/L (22-29); Chloride 111 mmol/L (98-107); Globulin 2.7 g/dL (1.3-4.6); Glucose 86 mg/dL (65-115); Iron 30 ug/dL (37-145); Osmolality Calculated 299 mOsm/kg (285-295); Percent Saturation 14.4 % (20-50); Potassium 4.5 mmol/L (3.5-5.1); Sodium 142 mmol/L (136-145); Total Bilirubin 0.2 mg/dL (0.15-1.2); Total Iron Binding Capacity 207 mcg/dl; Total Protein 6.5 g/dL (6.6-8.7); Unsaturated Iron Binding 177 ug/dL (112-347)
[2024-02-01] MEDS: sodium chloride 0.9% 250 ML 75 ML IV (10:47)
[2024-02-01] MEDS: ferric carboxy (IVPB) 750 MG in sodium chloride 0.9% (100 ml) 100 ML 345 MG IV (10:47)
[2024-02-01 11:15] VITALS: BP 178/79; PULSE 64; RESP 16; TEMP 36.3; O2SAT 96
== END 2024-03-02 23:59 | disposition home or self-care (01) ==
PROVIDERS: PCP Internal Medicine Medical Oncology; Visit Provider Internal Medicine Medical Oncology
DX: C18.0 Malignant neoplasm of cecum; D64.9 Anemia, unspecified
CPT/HCPCS: 80053; 83540; 83550; 85025; 96365; J1439; J7050

== ENCOUNTER 2024-02-08 10:02 | Inpatient (IN) | payer MEDICARE, SELFPAY ==
[2024-02-08] VITALS (49 sets, daily range): BP systolic 103–185; BP diastolic 51–121; PULSE 47–100; RESP 10–27; TEMP 36.4–37.9; O2SAT 88–100; BMI 18.9
--- NOTE | 2024-02-08 10:17 | XR_ITS ---
WS: [id number] Portable AP upright chest, 02/08/2024 Clinical Data: dyspnea/cough Comparison: None. Findings: No nodules, masses or effusions are seen. The heart is normal. The pulmonary vascularity is not increased. No pneumonia or pneumothorax is seen. The aortic arch and descending thoracic aorta s how minimal calcification and tortuosity. There are small surgical clips overlying the T6 and T7 vert ebral bodies. There is elevation of the left diaphragm. Monitor leads are on the chest wall. XR/XR chest 1V portable [id number] Impression: Atherosclerosis.
--- NOTE | 2024-02-08 10:24 | CTR_ITS ---
PROCEDURE INFORMATION: Exam: CT Abdomen And Pelvis With Contrast Exam date and time: 02/08/2024 12:25 PM Age: 78 years old Clinical indication: Abdominal pain; Prior surgery; Surgery date: 6+ months; Surgery type: -bowel perf, hyster, hemrrhoid; Patient HX: Colon cancer, liver, ; additional info: Abd pain TECHNIQUE: Imaging protocol: Computed tomography of the abdomen and pelvis with contrast. Radiation optimization: All CT scans at this facility use at least one of these dose optimization techniques: automated exposure control; mA and/or kV adjustment per patient size (includes targeted exams where dose is matched to clinical indication); or iterative reconstruction. Contrast material: OMNI 350; Contrast volume: 100 ml; Contrast route: INTRAVENOUS (IV); COMPARISON: CT abdomen pelvis w con* [id number] 10/09/2023 3:24 PM RADIATION DOSE METRICS: Total DLP (mGy-cm): 344.45 FINDINGS: Lungs: Faint ground-glass opacity right mid lung zone partially visualized on the 1st image difficult to further assess. Liver: Redemonstration of multiple liver metastasis measuring up to 3.3 cm mildly increased in size (3.0 cm). Superimposed liver cyst left lobe, stable. Gallbladder and biliary ducts: Normal. No calcified stones. No ductal dilation. Pancreas: Normal. No ductal dilation. Spleen: Normal. No splenomegaly. Adrenal glands: Normal. No mass. Kidneys and ureters: Left kidney is atrophic with multiple nonobstructing left renal stones redemonstrated. Right kidney collecting system is unremarkable. Stomach and bowel: Interval development of high-grade mid small bowel obstruction resulting in fluid-filled distended esophagus stomach and proximal half of the small bowel with 2 transition points both situated in the right lower quadrant both better demonstrated in the coronal plane (series 5, image 34 and image 32). The more inferiorly located transition point appears secondary to bowel wall thickening and stricture that is probably neoplastic in nature while the other transition point may be due to a intussusception. Appendix: No evidence of appendicitis. Intraperitoneal space: There is a small amount of pelvic ascites that has developed which may be related to the bowel obstruction. Vasculature: Scattered atherosclerotic changes of the abdominal aorta and iliac vessels. No aortic aneurysm. Lymph nodes: There is a cluster of peritoneal nodules in the right lower quadrant some of which likely represent lymph nodes measuring up to 1.7 cm relatively stable likely metastatic in nature. Urinary bladder: Unremarkable as visualized. Reproductive: Uterus has been removed. Bones/joints: Asymmetric degenerative changes mid lumbar spine. No acute bony abnormalities or suspicious bone lesions detected. Soft tissues: Unremarkable. CT/CT abdomen pelvis w con* [id number] IMPRESSION: 1. Interval development of high-grade mid small bowel obstruction with 2 potential transition points both situated in the right lower quadrant 1 of which is likely neoplastic in nature due to disease progression while the other may be due to an intussusception. 2. Interval development of small amount of pelvic ascites that may be related to the bowel obstruction for which close follow-up recommended. 3. Multiple liver metastasis slightly progressed from previous exam. 4. Localized peritoneal metastasis or metastatic regional lymphadenopathy right lower quadrant relatively unchanged.
--- NOTE | 2024-02-08 10:25 | ECG_ITS ---
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 Measurements Intervals [place] Rate: 95 P: 65 OK: 150 QRS: 51 QRSD: 86 T: 70 QT: 364 QTc: 459 Interpretive Statements SINUS RHYTHM LEFT VENTRICULAR HYPERTROPHY AND ST-T CHANGE [VOLTAGE CRITERIA PLUS ST/T ABNORMALITY] No previous ECG available for comparison Electronically Signed On 02-08-2024 12:01:26 CDT by Vic Yoder M.D. [id number]
--- NOTE | 2024-02-08 10:45 | ED_ITS ---
HPI - GI Bleed 2 General: Chief complaint: GI Bleed Stated complaint: N/V Coffee ground stool Time Seen by Provider: 02/08/24 10:07 Source: patient Mode of arrival: EMS History of Present Illness: 78-year-old female with a known history of colon cancer with metastasis to the liver presents to the emergency room with onset of coffee-ground emesis that began yesterday at around 1 PM. She is also noticed the same timeframe of onset of black diarrhea stools. 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 It is metastasized to the liver. MD complaint: coffee ground emesis and melena Associated symptoms: Reports abdominal pain, malaise, nausea and vomiting; Denies chills, fever(s) or rash Review of Systems 2 Const: Reports: fatigue and malaise; Denies: fever(s) or chills Card: Denies: chest pain Resp: Denies: dyspnea GI: Reports: abdominal pain, nausea, vomiting, coffee ground emesis, diarrhea and melena : Denies: dysuria, urinary frequency or urinary urgency Musc: Denies: neck pain or back pain Skin/Breast: Denies: rash PFSH ED 2 PFSH: Medical History 8 History of echocardiogram 01/2023 LV systolic function is normal with EF of 60 to 65%. Left atrial dilation. Mild tricuspid regurgitation. Moderate pulmonary hypertension. Mild pulmonic regurgitation. Murmur, cardiac Helicobacter pylori gastritis Pulmonary nodule B12 deficiency Essential hypertension failed treatment with 5-6 medications due to side effects and opted not to try any more medications Anemia Glaucoma History of breast cancer Nephrocalcinosis Atrophic kidney Hx of heat stroke Surgical History History of esophagogastroduodenoscopy (EGD) (06/2023) Hx of hemorrhoidectomy History of colonoscopy (06/29/23) H/O hysterectomy with unilateral oophorectomy History of partial gastrectomy Partial gastrectomy and partial small bowel resection, apparently for perforated viscus Hx of bilateral mastectomy (~1999) For cancer of the left breast Family History Family/Other Cancer breast; 36 family members Grandmother Diabetes Alcoholism in family member Mother Alcoholism in family member Denies family history of CAD (coronary artery disease) Clotting disorder Dementia Psychiatric illness Anesthesia complication Bleeding disorder Family history of premature coronary artery disease Stroke Social History Smoking and tobacco/nicotine status: never used tobacco/nicotine Second hand smoke exposure: No Alcohol intake: current Alcohol intake frequency: holidays/special occasions only Alcohol type: wine Substance/Drug Use: never Adopted: No Caregiver/support person: Yes (friend) Lives independently: Yes Household members: none Marital status: / service: No Current occupational status: retired Current gender identity: Female Chiqui/Restorationism: Moravian Special chiqui needs: Yes Agree to transfusion: No Physical Exam 2 Const: GENERAL APPEARANCE: cooperative and comfortable NUTRITIONAL APPEARANCE: cachectic ORIENTATION/CONSCIOUSNESS: Yes awake, Yes oriented to person, Yes oriented to place and Yes oriented to time HENMT: COMMON NORMALS: normocephalic, atraumatic and hearing grossly normal bilaterally HEAD & SCALP: normocephalic and atraumatic Resp: COMMON NORMALS: normal respiratory effort, No retractions, No use of accessory muscles and clear to auscultation bilaterally AUSCULTATION: clear to auscultation bilaterally Cardio: COMMON NORMALS: regular rate, regular rhythm and No murmurs present (Cardio) RATE: regular rate RHYTHM: regular rhythm GI: COMMON NORMALS: No hepatosplenomegaly present INSPECTION: Yes abdominal distension AUSCULTATION: Yes Absent bowel sounds PALPATION: Yes Tenderness to palpation present (GI), No Guarding due to palpation present (GI) and Yes No hepatosplenomegaly present PERCUSSION: tympanic to percussion Extremity: COMMON NORMALS: normal to inspection, capillary refill normal, no clubbing, cyanosis or edema, no calf tenderness and no pedal edema Neuro: SENSORIUM/ORIENTATION: Yes oriented to person, Yes oriented to place and Yes oriented to time Skin: COMMON NORMALS: no rashes or lesions noted GENERAL SKIN EXAM: no rashes or lesions noted Course 2 Vital Signs: Vital signs: Vital Signs Temperature 97.6 F 02/08/24 10:04 Pulse Rate 96 02/08/24 14:35 Respiratory Rate 20 H 02/08/24 14:35 Blood Pressure 126/82 02/08/24 14:35 Pulse Oximetry 98 02/08/24 14:35 Oxygen Delivery Me thod Room Air 02/08/24 10:04 MDM - GI Bleed Medical Decision Making Acute bowel obstruction in setting of a known untreated colon cancer. CT results reviewed discussed with the patient. She is elected not to pursue any treatment of the cancer but does want to pursue treatment for bowel obstruction. This would likely be palliative at best. She understands that she could end up with an ostomy. Consulted Dr. Wesley who is on-call for general surgery she advised Dr. Wesley of the same but did also want to have a Do Not Recussitate form filled out which the supervisor housecleaner helps her complete. Patient will be going directly to surgery discussed Dr. Del Rio will also consult for medical management. Dr. Wesley's and Dr. Del Rio have seen the patient in the emergency room. NG tube placed in the emergency room confirmed placement with x-ray. Large amount of output from the NG several canisters while she was still here before going to surgery. Medical Records I reviewed the patient's medical records. Lab Data I reviewed the patient's lab results. 02/08/24 10:29 02/08/24 11:37 Radiology Impressions Abdomen/Pelvis CT 02/08/24 10:24 IMPRESSION: 1. Interval development of high-grade mid small bowel obstruction with 2 potential transition points both situated in the right lower quadrant 1 of which is likely neoplastic in nature due to disease progression while the other may be due to an intussusception. 2. Interval development of small amount of pelvic ascites that may be related to the bowel obstruction for which close follow-up recommended. 3. Multiple liver metastasis slightly progressed from previous exam. 4. Localized peritoneal metastasis or metastatic regional lymphadenopathy right lower quadrant relatively unchanged. ADDENDUM: 02/08/24 1308 THIS REPORT CONTAINS FINDINGS THAT MAY BE CRITICAL TO PATIENT CARE. The findings were verbally communicated via telephone conference with BETHEL PARISH at 1:06 PM JAZMINE on 02/08/2024. The findings were acknowledged and understood. Chest X-Ray 02/08/24 13:30 Impression: Satisfactory insertion of nasogastric tube. Laboratory Results WBC 16.21 10^3/uL (3.29-11.43) H 02/08/24 10:29 RBC 4.02 10^6/uL (3.85-5.65) 02/08/24 10:29 Hgb 11.70 g/dL (11.27-16.99) 02/08/24 10:29 Hct 37.9 % (36-47) 02/08/24 10:29 MCV 94.3 fl (85-98) 02/08/24 10:29 MCH 29.1 pg (27-33) 02/08/24 10:29 MCHC 30.9 g/dL (30-55) 02/08/24 10:29 RDW 16.2 % (12.1-15.1) H 02/08/24 10:29 Plt Count 373 10^3/cmm (157-399) 02/08/24 10:29 MPV 10.9 fL (7.4-10.4) H 02/08/24 10:29 Neut % (Auto) 93.9 % 02/08/24 10:29 Lymph % (Auto) 1.9 % 02/08/24 10:29 Kane % (Auto) 3.6 % 02/08/24 10:29 Eos % (Auto) 0.0 % 02/08/24 10:29 Baso % (Auto) 0.2 % 02/08/24 10:29 Neut # (Auto) 15.22 10^3/uL (1.8-7.7) H 02/08/24 10:29 Lymph # (Auto) 0.3 10^3/uL (0.8-4.8) L 02/08/24 10:29 Kane # (Auto) 0.6 10^3/uL (0.2-0.9) 02/08/24 10:29 Eos # (Auto) 0.0 10^3/uL (0.0-0.8) 02/08/24 10:29 Baso # (Auto) 0.0 10^3/uL (0.0-0.1) 02/08/24 10:29 Nucleated RBC % (auto) 0 % 02/08/24 10:29 Nucleated RBCs # 0.0 /100WBC 02/08/24 10:29 PT 14.40 SECONDS (12.1-14.9) 02/08/24 11:37 INR 1.09 (0.8-1.2) 02/08/24 11:37 APTT 29.1 SECONDS (23.9-36.7) 02/08/24 11:37 Sodium 143 mmol/L (136-145) 02/08/24 11:37 Potassium 3.4 mmol/L (3.5-5.1) L 02/08/24 11:37 Chloride 106 mmol/L (98-107) 02/08/24 11:37 Carbon Dioxide 24 mmol/L (22-29) 02/08/24 11:37 Anion Gap 16.4 (5-19) 02/08/24 11:37 BUN 35 mg/dL (8-23) H 02/08/24 11:37 Creatinine 1.0 mg/dL (0.5-0.9) H 02/08/24 11:37 GFR Calculation Not Reportable 02/08/24 11:37 Glucose 158 mg/dL (65-115) H 02/08/24 11:37 Calculated Osmolality 307 mOsm/kg (285-295) H 02/08/24 11:37 Calcium 8.7 mg/dL (8.5-10.5) 02/08/24 11:37 Total Bilirubin 0.4 mg/dL (0.15-1.2) 02/08/24 11:37 AST 15 U/L (0-32) 02/08/24 11:37 ALT 13 U/L (0-33) 02/08/24 11:37 Alkaline Phosphatase 165 U/L (35-105) H 02/08/24 11:37 Ammonia 42 umol/L (11-51) 02/08/24 11:37 Troponin T Baseline 24 ng/L (0-10) H 02/08/24 11:37 Troponin T 120 Minute 26.46 ng/L (0-10) H 02/08/24 13:33 Delta Troponin T 2.46 ABS# (0-10) 02/08/24 13:33 Total Protein 6.3 g/dL (6.6-8.7) L 02/08/24 11:37 Albumin 3.7 g/dL (3.5-5.2) 02/08/24 11:37 Globulin 2.6 g/dL (1.3-4.6) 02/08/24 11:37 Urine Color Yellow (Yellow) 02/08/24 14:38 Urine Appearance Slightly cloudy (CLEAR) 02/08/24 14:38 Urine pH 5 (5-7) 02/08/24 14:38 Ur Specific [place] 1.010 (1.005-1.030) 02/08/24 14:38 Urine Protein 1+ (Negative) H 02/08/24 14:38 Urine Glucose (UA) Norm (Normal) 02/08/24 14:38 Urine Ketones 1+ (Negative) H 02/08/24 14:38 Urine Blood Trace (Negative) H 02/08/24 14:38 Urine Nitrate Negative (Negative) 02/08/24 14:38 Urine Bilirubin 1+ (Negative) H 02/08/24 14:38 Urine Urobilinogen Norm mg/dL (Negative) 02/08/24 14:38 Ur Leukocyte Esterase Negative (Negative) 02/08/24 14:38 Urine RBC 0-4 /hpf (0-2) H 02/08/24 14:38 Urine WBC 0-4 /hpf (0-5) H 02/08/24 14:38 Ur Squamous Epith Cells 0-4 /hpf (0-5) H 02/08/24 14:38 Amorphous Sediment Not Reportable 02/08/24 14:38 Urine Bacteria Trace /hpf (NONE) 02/08/24 14:38 Gastric Occult Blood Positive (Negative) H 02/08/24 10:30 Blood Type A Negative 02/08/24 10:29 Rho(D) Type Rh negative 02/08/24 10:29 Antibody Screen Negative 02/08/24 10:29 All radiology interpretation(s) finalized by discharge Discharge Plan Discharge Patient Disposition: Admitted As Inpatient Admit Provider: Erica Del Rio Clinical Impression: Malignant neoplasm of cecum, History of partial gastrectomy, Small bowel obstruction, Coffee ground emesis, Melena Condition: Stable Coding Level of Care Code ED Sales And Training Specialist for Jacob Castaneda
[2024-02-08 10:46] LABS: Basophils % 0.2 %; Hematocrit 37.9 % (36-47); Lymphocytes # 0.3 10^3/uL (0.8-4.8); Lymphocytes % 1.9 %; Mean Corpuscular HGB Conc 30.9 g/dL (30-55); Mean Corpuscular Hemoglobin 29.1 pg (27-33); Mean Corpuscular Volume 94.3 fl (85-98); Mean Platelet Volume 10.9 fL (7.4-10.4); Monocytes # 0.6 10^3/uL (0.2-0.9); Monocytes % 3.6 %; Neutrophils # 15.22 10^3/uL (1.8-7.7); Neutrophils % 93.9 %; Nucleated Red Blood Cells % 0 %; Platelet Count 373 10^3/cmm (157-399); Red Blood Count 4.02 10^6/uL (3.85-5.65); Red Cell Distribution Width 16.2 % (12.1-15.1); White Blood Count 16.21 10^3/uL (3.29-11.43)
[2024-02-08 10:54] LABS: Gastricult Occult Blood Positive (Negative)
[2024-02-08] MEDS: pantoprazole 40 mg SDV 80 MG IVP (11:16)
--- NOTE | 2024-02-08 12:02 | ECG_ITS ---
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 Measurements Intervals [place] Rate: 90 P: 42 VT: 145 QRS: 52 QRSD: 91 T: 51 QT: 378 QTc: 464 Interpretive Statements SINUS RHYTHM WITH SINUS ARRHYTHMIA NONSPECIFIC ST & T-WAVE ABNORMALITY Compared to ECG 02/08/2024 10:25:53 T-wave abnormality now present Left ventricular hypertrophy no longer present ST (T wave) deviation no longer present Electronically Signed On 02-08-2024 12:04:25 CDT by Vic Yoder M.D. [id number]
[2024-02-08 12:06] LABS: Ammonia 42 umol/L (11-51)
[2024-02-08 12:07] LABS: Alanine Aminotransferase 13 U/L (0-33); Albumin Level 3.7 g/dL (3.5-5.2); Alkaline Phosphatase 165 U/L (35-105); Anion Gap 16.4 (5-19); Aspartate Amino Transferase 15 U/L (0-32); Blood Urea Nitrogen 35 mg/dL (8-23); Calcium 8.7 mg/dL (8.5-10.5); Carbon Dioxide 24 mmol/L (22-29); Chloride 106 mmol/L (98-107); Creatinine Clr Calc Pharmacy 31.8036; Globulin 2.6 g/dL (1.3-4.6); Glucose 158 mg/dL (65-115); INR 1.09 (0.8-1.2); Osmolality Calculated 307 mOsm/kg (285-295); Partial Thromboplastin Time 29.1 SECONDS (23.9-36.7); Potassium 3.4 mmol/L (3.5-5.1); Sodium 143 mmol/L (136-145); Total Bilirubin 0.4 mg/dL (0.15-1.2); Total Protein 6.3 g/dL (6.6-8.7); Troponin(5th) Baseline 24 ng/L (0-10)
[2024-02-08] MEDS: iohexol 350 mg/mL 500 mL Btl (per mL) IV (12:27)
--- NOTE | 2024-02-08 13:30 | XR_ITS ---
WS: [id number] Portable AP upright chest, 02/08/2024, 1341 hours Clinical Data: dyspnea/cough Comparison: Portable chest, 02/08/2024, 1038hours Findings: There is a nasogastric tube which appears to end in the body of the stomach. The remainder of the chest shows no change. XR/XR chest 1V portable [id number] Impression: Satisfactory insertion of nasogastric tube.
[2024-02-08 13:55] LABS: Troponin 5 2HR 26.46 ng/L (0-10); Troponin 5 2HR Delta 2.46 ABS# (0-10)
--- NOTE | 2024-02-08 14:00 | P.CONIM_ITS ---
Providers/Reason For Consult 2 Consulting Physician/Specialty*: General surgery Reason for Consult*: Malignant small bowel obstruction Primary Care Provider: Johan Callahan MD History of Present Illness History of Present Illness Latia Hunter is a 78 year old female who has known history of colon cancer in the cecum metastatic to the liver, now presents with a small bowel obstruction characterized by abdominal distention nausea and vomiting over the last [address] scan done in the emergency department showed no evidence of obstruction at the level of the mid jejunum with 2 transition points both located in the right lower quadrant where the cancer is located. There is also possibility of intussusception distally. 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 Review of Systems 2 General: Reports: 10 or more systems reviewed and unremarkable except in HPI and below Medications/Allergies Home Medications Medication Instructions Recorded Confirmed Last Taken Type timolol maleate 0.5 % eye drops 1 drp ophthalmic (eye) BID 11/05/22 01/06/24 10/28/23 History vit C,L-Ht-pwwkfd-lutein-zeaxan 60 1 cap PO DAILY 09/17/23 01/06/24 10/28/23 History mg-13.5 mg-15 mg-2 mg-6 mg capsule (Healthy Eyes Lutein-Zeaxanthin) furosemide 40 mg tablet 40 mg PO DAILY #90 tabs 01/06/24 01/06/24 Unknown Rx potassium chloride 10 mEq 10 meq PO DAILY PRN 01/06/24 01/06/24 Unknown History tablet,extended release Allergies Allergy/AdvReac Type Severity Reaction Status Date / Time Sulfa (Sulfonamide Allergy Severe ALGY-Anaphy Verified 02/08/24 10:14 Antibiotics) laxis aspirin Allergy Unresponsiv Verified 02/08/24 10:14 e silvadine cream Allergy ALGY-Anaphy Uncoded 02/08/24 10:14 laxis cortisone AdvReac Intermediate swelling Uncoded 02/08/24 10:14 PFSH Acute 2 PFSH: Medical History Anemia Glaucoma History of breast cancer Nephrocalcinosis Atrophic kidney Hx of heat stroke Surgical History Hx of hemorrhoidectomy History of colonoscopy (06/29/23) H/O hysterectomy with unilateral oophorectomy History of partial gastrectomy Partial gastrectomy and partial small bowel resection, apparently for perforated viscus Hx of bilateral mastectomy (~1999) For cancer of the left breast Family History Family/Other Cancer breast; 36 family members Grandmother Diabetes Alcoholism in family member Mother Alcoholism in family member Denies family history of CAD (coronary artery disease) Clotting disorder Dementia Psychiatric illness Anesthesia complication Bleeding disorder Family history of premature coronary artery disease Stroke Social History Smoking and tobacco/nicotine status: former use of tobacco/nicotine Quit status (tobacco/nicotine): has quit using Year quit tobacco: 1971 Former quit date comment: 20 years tobacco use Second hand smoke exposure: No Alcohol intake: current Alcohol intake frequency: holidays/special occasions only Alcohol type: wine Substance/Drug Use: never Adopted: No Caregiver/support person: Yes (friend) Lives independently: Yes Household members: none Marital status: / service: No Current occupational status: retired Current gender identity: Female Chiqui/Yarsani: Rastafarian Special chiqui needs: Yes Agree to transfusion: No Vitals/I&O/Wt Last Vital Signs Temp 97.6 F 02/08/24 10:04 Pulse 96 02/08/24 11:30 Resp 20 H 02/08/24 11:30 BP 118/84 02/08/24 11:30 Pulse Ox 97 02/08/24 11:30 O2 Del Method Room Air 02/08/24 10:04 Weight last 48 hrs Weight 97 lb Physical Exam 2 Narrative: General : Patient is well developed , no acute distress, oriented x3 Head : Normal cephalic, a-traumatic. Nose : NG tube in place, has had 2 L of output since insertion Lungs : Equal chest rise bilaterally, no use of accessory muscles, trachea is midline. CV : Rate and rhythm are normal. Abdomen : Soft, previous abdominoplasty incision noted, abdomen is soft, there is tenderness in right lower quadrant. There are some mass effect in the right lower quadrant. Data 02/08/24 10:29 02/08/24 11:37 A&P Assessment and plan (1) History of partial gastrectomy: (2) Malignant neoplasm of cecum: Plan After a complete history, physical examination and review of all available clinical data the following is my assessment. Patient has stage IV metastatic colon cancer, has previously refused therapy. Now presents with malignant obstruction. I have informed patient that in the setting there is a very high risk of mortality with surgical intervention, the risk of morbidity is very high, I have explained to the patient that in my personal interpretation of the imaging there is not only malignant obstruction but there appears to be peritoneal carcinomatosis, with this findings there is a possibility of me doing a laparotomy and finding a frozen abdomen where I would not be able to proceed with any surgical intervention, I have also explained to the patient that every intervention that we plan to do is palliative in nature, there is a minimal opportunity of resection at this point, unfortunately I think that the only viable option that we might be able to accomplish this to create an ileostomy to provide distal decompression to the obstruction, but as this would not change the progression of disease and unfortunately her likelihood of survival is extremely low. Despite this discussion patient wants to go forward with surgery. She explains that she is okay if she passes away but will like to do something to try to relieve her obstruction. At the moment she wants to remain full code. We will proceed to the operating room for exploratory laparotomy, possible bowel resection, possible ostomy creation, possible palliative bypass. I have discussed with the patient all risk and benefits of the procedure including the risks of , intestinal perforation causing sepsis, need for additional operations, fascial dehiscence, hernia, lack of improvement of current symptoms, injury to surrounding structures, major bleeding causing , patient shows understanding, despite the high risk of morbidity and mortality she wishes to proceed. I have also informed the patient that likely she will remain intubated after surgery and will require intensive care unit management, she agrees. Coding Level of Care Code 93652 Diagnoses History of partial gastrectomy Z90.3 Malignant neoplasm of cecum C18.0
[2024-02-08] MEDS: D5-NS 0.45% + KCL 20 mEq 20 MEQ/1,000 ML BAG 125 MEQ IV (14:10)
--- NOTE | 2024-02-08 14:19 | P.HP_ITS ---
Providers/Chief Complaint 2 Admitting Physician: Erica Del Rio MD Primary Care Provider: Johan Callahan MD Chief Complaint: N/V Coffee ground stool History of Present Illness Latia Hunter is a 78 year old female who presented to the emergency room with a chief complaint of intractable vomiting. Symptoms began yesterday around 1 PM. She denies any preceding abdominal pain. She had vomiting of foodstuffs that progressed to dry heaves with coffee-ground emesis. Has been continual with any attempted oral intake since yesterday. She did have a bowel movement yesterday. Chronically she has had diarrhea for years and stools were noted to be loose yesterday. They were dark in color, a little sticky. She has not had a bowel movement since. She has only had pain with episodes of dry heaves. Pain is not bad enough that she feels like she needs anything for it. It should be noted she does have a diagnosis of moderately differentiated adenocarcinoma of the cecum, stage Britni (TX, NX, M1 A), MMR proficient, crass mutation positive associated with iron deficiency anemia. She has a known history of left breast cancer that she underwent bilateral mastectomy for. She has not received any chemotherapy or radiation therapy for her cecal cancer. Staging CTs done in July showed concern for metastatic liver disease. She had a Port-A-Cath placed and it was recommended that she receive FOLFOX modified regimen but ultimately this was not initiated. Her CEA levels have continued to increase and most recently at 473.7 last month. She follows with Dr. Callahan. She has lost a significant amount of weight in the last year, approximately 50 or 60 pounds. From a preoperative standpoint, patient is optimized for surgery. She has a history of high blood pressures in the past. She was tried on 5 or 6 different medications that all made her feel bad so she is not on any treatment now. Blood pressures today are variable ranging from normal to elevated but may be more a factor of anxiety around diagnosis and symptoms. Will need to keep an eye on them to determine if treatment needed. She has not had any problems with chest pain or difficulty breathing lately. Twelve-lead EKG shows nonspecific changes and baseline troponin was 24 though 2-hour troponin delta was negative at 2.46. She lives independently and is fairly active. This past weekend she did her own cooking and house chores until she started vomiting. She has no personal history of coronary artery disease. 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 BUN and creatinine are slightly up from baseline and potassium is slightly low secondary to GI losses. Current hemoglobin is not low though percent iron saturation on the first of this month was low at 14. Her hemoglobin on January 31 was also low at 9.7 so I suspect that she is concentrated with artificial elevation in hemoglobin level. She received empiric antibiotics in the emergency room with vancomycin and Zosyn. Mrs. Hunter is being admitted to hospitalist service. I was able to speak with Mrs. Hunter about her wishes should she be unable to make her own decisions. She had not had any narcotics or other sedating medications prior to this discussion. She requested that Opal Newman, her daughter make decisions for her. Advanced directive paperwork was completed reflecting this with case management. In the short-term, she would like CPR, defibrillation, intubation and mechanical ventilation to help her get through surgery but if her physicians felt that she was not going to be able to make her own decisions due to an acute clinical decline, she would not want ongoing resuscitative efforts. Should Mrs. Hunter not recover she did make a statement that she would like Opal to have/be in control of everything regarding her possessions. I also spoke with Opal who can be reached at [phone]. She understands Mrs. Hunter's current condition and prognosis as well as plan for today. Ms. Hunter herself also understands that surgery is high risk given emergent nature, prognosis is poor given advanced cancer and presentation, that she may come out of surgery on a ventilator, that she will likely have an ostomy after surgery, that she may not survive the surgery or the hospital stay, that her life expectancy is considered short under the circumstances and that there is a risk of bleeding, infection and other potential complications. She also understands that the only way to relieve the obstruction is surgical intervention and she did agree to proceed. I gave both Mrs. Hunter and Opal an opportunity to ask questions. I spoke with Dr. Wesley as well regarding plan. Review of Systems 2 General: Reports: Other (ROS as per HPI or as otherwise noted here) Const: Denies: fever(s) or chills Card: Reports: edema (Chronic, better than it has been in years); Denies: chest pain, lightheadedness, dyspnea on exertion or orthopnea Resp: Denies: dyspnea, productive cough, non-productive cough or wheezing GI: Denies: change in stool character : Denies: difficulty voiding Skin/Breast: Reports: sores (Sore to the hand from cut working on her car); Denies: rash Psych: Denies: anxiety or depression Medications/Allergies Home Medications Medication Instructions Recorded Confirmed Last Taken Type timolol maleate 0.5 % eye drops 1 drp ophthalmic (eye) BID 11/05/22 02/08/24 02/08/24 History Allergies Allergy/AdvReac Type Severity Reaction Status Date / Time Sulfa (Sulfonamide Allergy Severe ALGY-Anaphy Verified 02/08/24 10:14 Antibiotics) laxis aspirin Allergy Unresponsiv Verified 02/08/24 10:14 e silvadine cream Allergy ALGY-Anaphy Uncoded 02/08/24 10:14 laxis cortisone AdvReac Intermediate swelling Uncoded 02/08/24 10:14 PFSH Acute 2 PFSH: Medical History (Updated 02/08/24 @ 15:59 by Erica Del Rio MD) 8 History of echocardiogram 01/2023 LV systolic function is normal with EF of 60 to 65%. Left atrial dilation. Mild tricuspid regurgitation. Moderate pulmonary hypertension. Mild pulmonic regurgitation. Murmur, cardiac Helicobacter pylori gastritis Pulmonary nodule B12 deficiency Essential hypertension failed treatment with 5-6 medications due to side effects and opted not to try any more medications Anemia Glaucoma History of breast cancer Nephrocalcinosis Atrophic kidney Hx of heat stroke Surgical History (Updated 02/08/24 @ 14:26 by Erica Del Rio MD) History of esophagogastroduodenoscopy (EGD) (06/2023) Hx of hemorrhoidectomy History of colonoscopy (06/29/23) H/O hysterectomy with unilateral oophorectomy History of partial gastrectomy Partial gastrectomy and partial small bowel resection, apparently for perforated viscus Hx of bilateral mastectomy (~1999) For cancer of the left breast Family History Family/Other Cancer breast; 36 family members Grandmother Diabetes Alcoholism in family member Mother Alcoholism in family member Denies family history of CAD (coronary artery disease) Clotting disorder Dementia Psychiatric illness Anesthesia complication Bleeding disorder Family history of premature coronary artery disease Stroke Social History (Updated 02/08/24 @ 15:32 by Erica Del Rio MD) Smoking and tobacco/nicotine status: never used tobacco/nicotine Second hand smoke exposure: No Alcohol intake: current Alcohol intake frequency: holidays/special occasions only Alcohol type: wine Substance/Drug Use: never Adopted: No Caregiver/support person: Yes (friend) Lives independently: Yes Household members: none Marital status: / service: No Current occupational status: retired Current gender identity: Female Chiqui/Oriental Orthodox: Yazidism Special chiqui needs: Yes Agree to transfusion: No Other PFSH information: Supplemental PFSH Information: She cared for a total of 36 children; 8 were her own Vitals/I&O/Wt Last Vital Signs Temp 97.6 F 02/08/24 10:04 Pulse 96 02/08/24 11:30 Resp 20 H 02/08/24 11:30 BP 118/84 02/08/24 11:30 Pulse Ox 97 02/08/24 11:30 O2 Del Method Room Air 02/08/24 10:04 Weight last 48 hrs Weight 43.998 kg Physical Exam 2 Narrative: Patient is awake, alert, oriented to person, place and situation. Pupils are equally reactive, face is symmetric, mucous membranes are dry. Neck is supple. Lungs are clear to auscultation bilaterally without any rales rhonchi or wheezes noted. Cardiovascular exam reveals a regular rate and rhythm. She does have cardiac murmur most notable at the left upper and right upper sternal borders. Abdomen is soft, slightly scaphoid. Nontender. Bowel sounds consistent with NG tube in place which is in the left nares. Normal external genitalia. Trace pitting edema. Speech is clear, moves all extremities. Urinary Catheter Management: Oseguera: Cath Placed During This Visit: yes Urethral Indwelling: Yes Reason for Continuing Indwelling Catheter: Perioperative Use in Selected Surgeries Urinary Catheter Date of Insertion: 02/08/24 Urinary Catheter Time of Insertion: 15:00 Data 02/08/24 10:29 02/08/24 11:37 Other Labs: Radiology Impressions Abdomen/Pelvis CT 02/08/24 10:24 IMPRESSION: 1. Interval development of high-grade mid small bowel obstruction with 2 potential transition points both situated in the right lower quadrant 1 of which is likely neoplastic in nature due to disease progression while the other may be due to an intussusception. 2. Interval development of small amount of pelvic ascites that may be related to the bowel obstruction for which close follow-up recommended. 3. Multiple liver metastasis slightly progressed from previous exam. 4. Localized peritoneal metastasis or metastatic regional lymphadenopathy right lower quadrant relatively unchanged. ADDENDUM: 02/08/24 4020 THIS REPORT CONTAINS FINDINGS THAT MAY BE CRITICAL TO PATIENT CARE. The findings were verbally communicated via telephone conference with KARIME MARTIN at 1:06 PM CDT on 02/08/2024. The findings were acknowledged and understood. Chest X-Ray 02/08/24 13:30 Impression: Satisfactory insertion of nasogastric tube. Laboratory Results WBC 16.21 10^3/uL (3.29-11.43) H 02/08/24 10:29 RBC 4.02 10^6/uL (3.85-5.65) 02/08/24 10:29 Hgb 11.70 g/dL (11.27-16.99) 02/08/24 10:29 Hct 37.9 % (36-47) 02/08/24 10:29 MCV 94.3 fl (85-98) 02/08/24 10:29 MCH 29.1 pg (27-33) 02/08/24 10:29 MCHC 30.9 g/dL (30-55) 02/08/24 10:29 RDW 16.2 % (12.1-15.1) H 02/08/24 10:29 Plt Count 373 10^3/cmm (157-399) 02/08/24 10:29 MPV 10.9 fL (7.4-10.4) H 02/08/24 10:29 Neut % (Auto) 93.9 % 02/08/24 10:29 Lymph % (Auto) 1.9 % 02/08/24 10:29 [place] % (Auto) 3.6 % 02/08/24 10:29 Eos % (Auto) 0.0 % 02/08/24 10:29 Baso % (Auto) 0.2 % 02/08/24 10:29 Neut # (Auto) 15.22 10^3/uL (1.8-7.7) H 02/08/24 10:29 Lymph # (Auto) 0.3 10^3/uL (0.8-4.8) L 02/08/24 10:29 [place] # (Auto) 0.6 10^3/uL (0.2-0.9) 02/08/24 10:29 Eos # (Auto) 0.0 10^3/uL (0.0-0.8) 02/08/24 10:29 Baso # (Auto) 0.0 10^3/uL (0.0-0.1) 02/08/24 10:29 Nucleated RBC % (auto) 0 % 02/08/24 10:29 Nucleated RBCs # 0.0 /100WBC 02/08/24 10:29 PT 14.40 SECONDS (12.1-14.9) 02/08/24 11:37 INR 1.09 (0.8-1.2) 02/08/24 11:37 APTT 29.1 SECONDS (23.9-36.7) 02/08/24 11:37 Sodium 143 mmol/L (136-145) 02/08/24 11:37 Potassium 3.4 mmol/L (3.5-5.1) L 02/08/24 11:37 Chloride 106 mmol/L (98-107) 02/08/24 11:37 Carbon Dioxide 24 mmol/L (22-29) 02/08/24 11:37 Anion Gap 16.4 (5-19) 02/08/24 11:37 BUN 35 mg/dL (8-23) H 02/08/24 11:37 Creatinine 1.0 mg/dL (0.5-0.9) H 02/08/24 11:37 GFR Calculation Not Reportable 02/08/24 11:37 Glucose 158 mg/dL (65-115) H 02/08/24 11:37 Calculated Osmolality 307 mOsm/kg (285-295) H 02/08/24 11:37 Calcium 8.7 mg/dL (8.5-10.5) 02/08/24 11:37 Total Bilirubin 0.4 mg/dL (0.15-1.2) 02/08/24 11:37 AST 15 U/L (0-32) 02/08/24 11:37 ALT 13 U/L (0-33) 02/08/24 11:37 Alkaline Phosphatase 165 U/L (35-105) H 02/08/24 11:37 Ammonia 42 umol/L (11-51) 02/08/24 11:37 Troponin T Baseline 24 ng/L (0-10) H 02/08/24 11:37 Troponin T 120 Minute 26.46 ng/L (0-10) H 02/08/24 13:33 Delta Troponin T 2.46 ABS# (0-10) 02/08/24 13:33 Total Protein 6.3 g/dL (6.6-8.7) L 02/08/24 11:37 Albumin 3.7 g/dL (3.5-5.2) 02/08/24 11:37 Globulin 2.6 g/dL (1.3-4.6) 02/08/24 11:37 Gastric Occult Blood Positive (Negative) H 02/08/24 10:30 Blood Type A Negative 02/08/24 10:29 Rho(D) Type Rh negative 02/08/24 10:29 Antibody Screen Negative 02/08/24 10:29 Laboratory Tests 12/02/23 01/06/24 02/01/24 12:45 14:30 08:20 Hgb 9.70 L Potassium 4.5 BUN 28 H Creatinine 0.9 Unsat Iron Binding 177 Total Protein 6.5 L Carcinoembryonic Ag 372.9 H 473.7 H 02/01/24 08:20 Iron 30 L TIBC 207 % Saturation 14.4 L A&P Assessment and plan (1) Coffee ground emesis: Presenting complaint secondary to intractable vomiting, related to #2, no bright red blood noted, melanotic loose stools reported, duration of symptoms 1 day (2) Small bowel obstruction: High grade obstruction in mid small bowel with 2 transition points within right lower quandrant. Intussusception also possible. Has elevated white count with left shift suggesting early infection possible. She is not tachycardic or hypotensive. (3) Malignant neoplasm of cecum: Stage 4, with liver metastasis and likely lymph node and peritoneal involvement. Opted not to receive chemotherapy. Follows with Dr Callahan. Has a port in place as chemo was considered. (4) Elevated troponin: Present on admission with value at 24. 2-hour troponin delta was 2. No personal history of coronary artery disease. EKG with nonspecific changes. No recent symptoms of chest pain, dizziness, dyspnea reported. (5) Murmur, cardiac: Longstanding per patient. Echocardiogram done in 2022 showed evidence of mild tricuspid and pulmonic regurgitation. No significant aortic stenosis identified. EF was 60-65%. (6) Essential hypertension: Longstanding diagnosis. Patient had previously been tried on multiple medications with out improvement and/or with side effects. She ultimately opted not to receive additional medications. Echocardiogram in 2022 showed evidence of moderate pulmonary hypertension with right ventricular systolic pressures of 50 to 55 mmHg send may be more secondary rather than a central/primary hypertension. Blood pressures today have ranged from 118-174/74-86. 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 Plan Mild dehydration from GI losses as evidenced by slight elevation in BUN/Cr and slightly low potassium at presentation Inpatient admission Going to surgery from the ER Anticipate ICU level care postoperatively Anticipate will be intubated postoperatively Will need to monitor hemoglobin levels, has been typed and screened Oseguera catheter is in place Monitor volume status Monitor blood pressures Continue empiric antibiotics Follow-up pending urinalysis, specimen has been sent to lab VTE prophylaxis: SCDs, no pharmacological DVT prophylaxis secondary to coffee- ground emesis and melena, Hemoccult positive at presentation along with known iron deficiency anemia from chronic loss related to cecal cancer GI Prophylaxis: PPI Antibiotics: Continue antibiotics as per surgery Pending studies: Urinalysis pending Telemetry: Will monitor initially due to postoperative state for an emergent surgery compliant with hypertension Oseguera: Oseguera catheter in place to monitor output in this surgical patient with plan to remove per usual postoperative guidelines unless clinically contraindicated Line(s): peripheral IVs and Port-A-Cath in place Disposition plan: Home with outpatient follow up is patient's desired discharge plan at this time. I did discuss with her that given the nature of her surgery and anticipated clinical course, she very well may need placement or assistance in the home upon discharge. She wants to see how she is after surgery to help consider options. Code Status: Full Code though patient was clear that if she had clinical condition where her physicians felt that she would not be able to make her own decisions going forward she would not want long-term advanced care measures. Supportive care otherwise Findings, concerns and plans were discussed with patient as well as her daughter Opal Newman and they were given an opportunity to ask questions Attestations 2 Medical Necessity Statement*: Anticipated stay greater than two midnights in this patient with high-grade small bowel obstruction undergoing emergency surgery. Anticipation is that she will have an ostomy postoperatively. She has a high risk of significant morbidity and even mortality. Diagnoses Coffee ground emesis K92.0 Small bowel obstruction K56.609 Malignant neoplasm of cecum C18.0 Elevated troponin R79.89 Murmur, cardiac R01.1 Essential hypertension I10 Glaucoma, bilateral H40.9
--- NOTE | 2024-02-08 14:56 | PC.NURSE ---
Dr. Del Rio spoke to the patient's daughter Opal over the phone regarding the patient's wishes, the patient's possible outcome and what all diagnosis the patient has. Dr. Del Rio and the daughter Opal spoke for quite a while discussing the patient's possible hospital stay.
--- NOTE | 2024-02-08 15:02 | ANES.PREANE2 ---
Pre-Anesthetic Assessment Height/Weight: Height 1.52 m Weight 43.998 kg Temp Pulse Resp BP Pulse Ox O2 Del Method 97.6 F 96 20 H 126/82 98 Room Air 02/08/24 10:04 02/08/24 14:35 02/08/24 14:35 02/08/24 14:35 02/08/24 14:35 02/08/24 10:04 Operation Date: 02/08/24 15:10 Proposed Procedures p Exploratory Laparotomy, poss bowel resection, poss ostomy creation(Not Applicable) - Reginald Wesley MD Familial anesthetic complications: None Was Beta Jb taken within 24 hours: N/A Was Clonidine taken within 24 hours: N/A Last intake: > 8 hrs Social No alcohol and No tobacco Exam alert, oriented x 3, clear to auscultation bilaterally and regular rate & rhythm Airway Mallampati: Class II Dentition: other (no teeth) CV/HEM Hypertension GI SBO and large bowel obstruction stage IV colon cancer Anesthetic Plan ASA status: 4E Anesthesia: General Risk of > 500 ml blood loss (7ml/kg in children): No Medications/Allergies Home Medications Medication Instructions Recorded Confirmed Last Taken Type timolol maleate 0.5 % eye drops 1 drp ophthalmic (eye) BID 11/05/22 02/08/24 02/08/24 History Allergies Allergy/AdvReac Type Severity Reaction Status Date / Time Sulfa (Sulfonamide Allergy Severe ALGY-Anaphy Verified 02/08/24 10:14 Antibiotics) laxis aspirin Allergy Unresponsiv Verified 02/08/24 10:14 e silvadine cream Allergy ALGY-Anaphy Uncoded 02/08/24 10:14 laxis cortisone AdvReac Intermediate swelling Uncoded 02/08/24 10:14 Current Medications Generic Name Dose Route Start Last Admin Trade Name Freq PRN Reason Stop Dose Admin Potassium Chloride/Dextrose/Sod Cl 20 meq in 1,000 mls @ 125 mls/hr 02/08/24 13:45 02/08/24 14:10 D5-Ns 0.45% + Kcl 20 Meq IV 125 mls/hr .Q8H GERONIMO Administration PFSH Anesthesia Medical History (Updated 02/08/24 @ 14:26 by Erica Del Rio MD) Helicobacter pylori gastritis Pulmonary nodule B12 deficiency Essential hypertension Anemia Glaucoma History of breast cancer Nephrocalcinosis Atrophic kidney Hx of heat stroke Surgical History (Updated 02/08/24 @ 14:26 by Erica Del Rio MD) History of esophagogastroduodenoscopy (EGD) (06/2023) Hx of hemorrhoidectomy History of colonoscopy (06/29/23) H/O hysterectomy with unilateral oophorectomy History of partial gastrectomy Partial gastrectomy and partial small bowel resection, apparently for perforated viscus Hx of bilateral mastectomy (~1999) For cancer of the left breast Family History Family/Other Cancer breast; 36 family members Grandmother Diabetes Alcoholism in family member Mother Alcoholism in family member Denies family history of CAD (coronary artery disease) Clotting disorder Dementia Psychiatric illness Anesthesia complication Bleeding disorder Family history of premature coronary artery disease Stroke Social History Smoking and tobacco/nicotine status: former use of tobacco/nicotine Quit status (tobacco/nicotine): has quit using Year quit tobacco: 1971 Former quit date comment: 20 years tobacco use Second hand smoke exposure: No Alcohol intake: current Alcohol intake frequency: holidays/special occasions only Alcohol type: wine Substance/Drug Use: never Adopted: No Caregiver/support person: Yes (friend) Lives independently: Yes Household members: none Marital status: / service: No Current occupational status: retired Current gender identity: Female Chiqui/Christian: Jainism Special chiqui needs: Yes Agree to transfusion: No Data Anesthesia 02/08/24 10:29 02/08/24 11:37 Short CBC 02/08/24 Range/Units 10:29 WBC 16.21 H (3.29-11.43) 10^3/uL Hgb 11.70 (11.27-16.99) g/dL Hct 37.9 (36-47) % MCV 94.3 (85-98) fl Plt Count 373 (157-399) 10^3/cmm Neut % (Auto) 93.9 % Neut # (Auto) 15.22 H (1.8-7.7) 10^3/uL BMP 02/08/24 02/08/24 10:29 11:37 Sodium Cancelled 143 Potassium Cancelled 3.4 L Chloride Cancelled 106 Carbon Dioxide Cancelled 24 BUN Cancelled 35 H Creatinine Cancelled 1.0 H Glucose Cancelled 158 H Calcium Cancelled 8.7 Cardiac Enzymes 02/08/24 02/08/24 02/08/24 Range/Units 10:29 11:37 13:33 Troponin T Baseline Cancelled 24 H Troponin T 120 Minute 26.46 H (0-10) ng/L Delta Troponin T 2.46 (0-10) ABS# Liver Function 02/08/24 02/08/24 Range/Units 10:29 11:37 Total Bilirubin Cancelled 0.4 AST Cancelled 15 ALT Cancelled 13 Alkaline Phosphatase Cancelled 165 H Albumin Cancelled 3.7 Blood Bank 02/08/24 10:29 Blood Type A Negative Rho(D) Type Rh negative Antibody Screen Negative Coags 02/08/24 02/08/24 10:29 11:37 PT Cancelled 14.40 INR Cancelled 1.09 APTT Cancelled 29.1 Cardiac Studies: Echocardiogram 11/05/22
[2024-02-08] MEDS: sodium chloride 0.9% 1,000 ML 30 ML IV (15:13)
[2024-02-08] MEDS: piperacillin-tazobactam 3.375 GM in sodium chloride 0.9% (plus) 50 ML IV (15:28)
[2024-02-08] MEDS: vancomycin 750 MG in sodium chloride 0.9% 250 ML 250 MG IV (15:50)
--- NOTE | 2024-02-08 16:18 | ECG_ITS ---
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 Measurements Intervals [place] Rate: 96 P: 57 OR: 152 QRS: 52 QRSD: 93 T: 34 QT: 357 QTc: 451 Interpretive Statements SINUS RHYTHM NONSPECIFIC ST & T-WAVE ABNORMALITY Compared to ECG 02/08/2024 12:02:47 Sinus arrhythmia no longer present T-wave abnormality still present Electronically Signed On 02-09-2024 8:57:58 CDT by Vic Yoder M.D. [email or web address]
[2024-02-08 16:38] LABS: Add Urine Microscopic? YES; Bacteria Urine TRACE /hpf; Bilirubin Urine 1+ (Negative); Blood Urine Trace (Negative); Glucose Urine UA Norm (Normal); Ketones Urine 1+ (Negative); Leukocyte Esterase Urine Negative (Negative); Nitrate Urine Negative (Negative); Protein Urine 1+ (Negative); RBC Urine 0-4 /hpf (0-2); Squamous Epithelial Cell Urine 0-4 /hpf (0-5); Urine Appearance Slightly Cloudy (CLEAR); Urine Color Yellow (Yellow); Urobilinogen Urine Norm (Negative); WBC Urine 0-4 /hpf (0-5); pH Urine 5 (5-7)
[2024-02-08 16:39] LABS: Add Urine Culture? No
[2024-02-08] MEDS: BUPivacaine 0.5% INJ 10 mL INJECTION (16:40)
[2024-02-08] MEDS: lidocaine 2% INJ 20 mL 10 ML INJECTION (16:40)
--- NOTE | 2024-02-08 16:54 | PM.OP ---
Operative Report Date of procedure: February 08, 2024 Pre-op diagnosis: Malignant small bowel obstruction Post-op diagnosis: Same, peritoneal carcinomatosis, frozen abdomen Post-op findings: There was malignant adhesions between the jejunum and the right colon at the area of the lesion, at this point there was evidence of omental caking and peritoneal carcinomatosis, additions of the jejunal distended all the way down to the midline making the right lower quadrant inaccessible, consistent with frozen abdomen at the level of the right lower quadrant. There was no access to any loop of bowel viable for ostomy proximal to this level, distal bowel was noted to be decompressed but thickened Procedure done: Exploratory laparotomy Specimens removed/disposition: None Pathology: None Surgeon: Reginald Wesley MD Metal Bonding Assembler: MAIRA OR Staff Estimated blood loss: 10 Complications: none apparent Brief History: Is a 78-year-old female with known colon cancer who presents with malignant small bowel obstruction, the decision was to take the patient to the operating room as CT scan of the abdomen showed evidence of a high-grade obstruction with 2 transition points. I discussed with the patient the poor prognosis of her findings, and the high likelihood of morbidity and mortality. We decided to proceed to the OR for a palliative operation after discussion of all risk and benefits with her and her family member. Procedure: Patient was brought into the OR, she was placed in a supine position. General anesthesia was given. The abdomen was prepped and draped in the usual sterile fashion. I decided to enter the abdomen in the supraumbilical location as I was suspecting significant inflammatory reaction in the right lower quadrant that may have caused significant adhesions. I made a 15 cm midline laparotomy incision, the incision was deepened until the fascia was identified, the fascia was opened with electrocautery, I then elevated the peritoneum with consuls and proceeded to open the peritoneum with a Metzenbaum scissor. Upon immediate entry to the peritoneum it was apparent that the majority of the small bowel was compacted against the right lower quadrant of abdominal wall. There was no space for dissection between the small bowel and the abdominal wall and this was a deer to about two thirds of the surface of the peritoneum of the right lower quadrant. The small bowel was also noted to be densely adhered to mass in the right colon, at this level it was also noted omental adhesions and peritoneal carcinomatosis. 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 The upper abdomen appeared to be healthy but there was no proximal bowel loop that was unable that could be used to fashion an ileostomy. The distal small bowel was able to be reached and noted to be decompressed, unfortunately this portion of the bowel was past the area of obstruction and therefore not viable to produce an ileostomy. At this point I decided that no further intervention could be completed as likelihood of causing immediate and morbidity by mobilizing the dense malignant additions on the right lower quadrant was extremely high and will likely result in severe morbidity shortening the patient lives span without relieving her obstruction. Before proceeding with closing of the abdominal wall I had to carefully mobilize one of the loops of bowel that was densely adhered to the anterior abdominal wall at the level of the midline as this was very close to the area where the initial suture will be placed. Mobilization was with blunt dissection and with Metzenbaum scissors I was able to mobilize about 1 to 2 cm distal to the area of the wound to allow for closure. After mobilization and noted a small serosal tear at the 6 loop of small bowel and repair it with #3-0 Vicryl. The abdomen was then closed with #0 PDS, wilberto were placed in the skin and a sterile dressing was applied. At the end of the procedure all counts were correct, the patient tolerated well the procedure was extubated and transferred to the ICU in stable condition. Lack of decompression, patient will likely progress to ischemia perforation of the intestine, my recommendation at this point will be to proceed with palliative care. I have discussed this recommendation with primary team and also with the daughter of the patient, they are in agreement
--- NOTE | 2024-02-08 17:00 | ANE.PACU2 ---
Inpatient post-anesthesia follow up: Airway intact: Yes Vital signs: Temperature 99.1 F Pulse Rate 76 Respiratory Rate 13 Blood Pressure 124/57 Pulse Oximetry 92 Oxygen Delivery Me thod Room Air Oxygen Flow Rate Fraction of Inspir ed Oxygen Hydration adequate: Yes Nausea and vomiting: No Pain level: 1 Mental status: Baseline
--- NOTE | 2024-02-08 17:07 | PC.NURSE ---
To room at 1656, awake/alert, GCS 15, VSS.
[2024-02-08] MEDS: sodium chlor 0.9% + KCl 20 mEq 20 MEQ/1,000 ML BAG 100 MEQ IV (17:16)
[2024-02-08] MEDS: pantoprazole 40 mg SDV IVP (17:17)
[2024-02-08] MEDS: acetaminophen 1,000 MG/100 ML PIGGYBACK 400 MG IV (17:31)
[2024-02-08] MEDS: timolol 0.5% Op Soln 5 mL Btl 1 DROP EYE-BOTH (18:44)
[2024-02-09] VITALS (45 sets, daily range): BP systolic 101–181; BP diastolic 51–123; PULSE 72–93; RESP 10–25; TEMP 36.6–37.3; O2SAT 90–99; BMI 20.4
[2024-02-09] MEDS: sodium chlor 0.9% + KCl 20 mEq 20 MEQ/1,000 ML BAG 100 MEQ IV ×3 (03:43→23:51)
[2024-02-09 04:39] LABS: ABG PCO2 38.4 mmHg (35-45); ABG PH Result 7.38 (7.35-7.45); Arterial Blood Gas Hematocrit 24.1 % (37-47); Blood Gas Allen Test Pos; Blood Gas Sample Site Brachial, right; Blood Gas Sample Type Arterial; HCO3 ABG 22.9 mmol/L (22-26); PO2 FiO2 Ratio Arterial Blood 314
[2024-02-09] MEDS: pantoprazole 40 mg SDV IVP ×2 (04:45→17:05)
[2024-02-09 04:58] LABS: Basophils % 0.1 %; Hematocrit 25.9 % (36-47); Lymphocytes # 0.4 10^3/uL (0.8-4.8); Lymphocytes % 6.1 %; Mean Corpuscular HGB Conc 30.1 g/dL (30-55); Mean Corpuscular Hemoglobin 29.2 pg (27-33); Mean Platelet Volume 10.6 fL (7.4-10.4); Monocytes # 0.5 10^3/uL (0.2-0.9); Monocytes % 7.3 %; Neutrophils # 5.76 10^3/uL (1.8-7.7); Neutrophils % 86.4 %; Nucleated Red Blood Cells % 0 %; Platelet Count 232 10^3/cmm (157-399); Red Blood Count 2.67 10^6/uL (3.85-5.65); Red Cell Distribution Width 16.4 % (12.1-15.1); White Blood Count 6.68 10^3/uL (3.29-11.43)
[2024-02-09 05:25] LABS: Slide Review Slide Review Perform
[2024-02-09 05:31] LABS: Alanine Aminotransferase 10 U/L (0-33); Albumin Level 3.2 g/dL (3.5-5.2); Alkaline Phosphatase 114 U/L (35-105); Anion Gap 16.5 (5-19); Aspartate Amino Transferase 13 U/L (0-32); Blood Urea Nitrogen 37 mg/dL (8-23); Calcium 8.1 mg/dL (8.5-10.5); Carbon Dioxide 23 mmol/L (22-29); Chloride 113 mmol/L (98-107); Creatinine Clr Calc Pharmacy 24.4643; Glucose 129 mg/dL (65-115); Magnesium 1.7 mg/dL (1.7-2.3); Osmolality Calculated 316 mOsm/kg (285-295); Phosphorus 2.9 mg/dL (2.5-4.5); Potassium 4.5 mmol/L (3.5-5.1); Sodium 148 mmol/L (136-145); Total Bilirubin 0.3 mg/dL (0.15-1.2); Total Protein 5.2 g/dL (6.6-8.7)
[2024-02-09] MEDS: HYDROmorphone 1 mg/mL INJ 1 mL 0.5 MG IVP ×3 (07:46→20:13)
[2024-02-09] MEDS: acetaminophen 1,000 MG/100 ML PIGGYBACK 400 MG IV (09:39)
[2024-02-09] MEDS: timolol 0.5% Op Soln 5 mL Btl 1 DROP EYE-BOTH ×2 (09:40→17:05)
--- NOTE | 2024-02-09 15:29 | PC.NURSE ---
Hospice Dr. Portillo in room talking to patient and both daughters about treatment options for patient, prognosis, and what the patient can expect. Patient quickly gave decision to pursue hospice, family agrees. patient services technician to set up hospice for patient.
--- NOTE | 2024-02-09 15:33 | P.PN_ITS ---
Subjective 2 Subjective: Had an extensive discussion with patient and family at bedside. Patient understands the extremely grave prognosis of a frozen abdomen. Unfortunately there are no surgical interventions to relieve her high-grade SBO related to multiple peritoneal carcinomatosis and advanced cancer. She has previously declined chemotherapy. Goals of care have been transitioning to hospice/comfort management only. Medications: Reviewed: Yes Vitals/I&O/Wt Last Vital Signs Temp 98.0 F 02/09/24 12:00 Pulse 79 02/09/24 15:00 Resp 18 02/09/24 15:00 BP 177/81 02/09/24 15:00 Pulse Ox 97 02/09/24 15:00 O2 Del Method Room Air 02/09/24 15:00 02/09/24 02/09/24 02/09/24 06:59 14:59 22:59 Intake Total 1690 / 2807.667 1940 / 1940 Output Total 1075 / 1075 800 / 800 Balance 615 / 6034.491 7057 / 1140 Weight last 48 hrs Weight 47.491 kg Weight 43.998 kg Weight 43.998 kg Physical Exam 2 Narrative: General: No acute distress, AO x3 HEENT: PERRLA, pupils bilaterally equal and reactive, pallors not present Chest: Normal vesicular breath sounds, no added sounds, equal good air entry bilaterally CVS: S1-S2 regular, no murmurs, no tachycardia, no gallops, no rubs Abdomen: Soft, midline surgical incision with multiple wilberto in place Neuro: No focal deficits, no facial deformity, AO x3, power 5/5 in all limbs Extremities: No edema clubbing or cyanosis Urinary Catheter Management: Oseguera: Cath Placed During This Visit: yes Urethral Indwelling: Yes Reason for Continuing Indwelling Catheter: Accurate Measurement of Urinary Output in Critically Ill Patients Urinary Catheter Date of Insertion: 02/08/24 Urinary Catheter Time of Insertion: 15:00 Data 02/09/24 03:45 02/09/24 03:45 A&P Assessment and plan (1) Coffee ground emesis: Presenting complaint secondary to intractable vomiting, related to #2, no bright red blood noted, melanotic loose stools reported, duration of symptoms 1 day (2) Small bowel obstruction: High grade obstruction in mid small bowel with 2 transition points within right lower quandrant. Intussusception also possible. Has elevated white count with left shift suggesting early infection possible. She is not tachycardic or hypotensive. (3) Malignant neoplasm of cecum: Stage 4, with liver metastasis and likely lymph node and peritoneal involvement. Opted not to receive chemotherapy. Follows with Dr Callahan. Has a port in place as chemo was considered. (4) Elevated troponin: Present on admission with value at 24. 2-hour troponin delta was 2. No personal history of coronary artery disease. EKG with nonspecific changes. No recent symptoms of chest pain, dizziness, dyspnea reported. (5) Murmur, cardiac: Longstanding per patient. Echocardiogram done in 2022 showed evidence of mild tricuspid and pulmonic regurgitation. No significant aortic stenosis identified. EF was 60-65%. (6) Essential hypertension: Longstanding diagnosis. Patient had previously been tried on multiple medications with out improvement and/or with side effects. She ultimately opted not to receive additional medications. Echocardiogram in 2022 showed evidence of moderate pulmonary hypertension with right ventricular systolic pressures of 50 to 55 mmHg send may be more secondary rather than a central/primary hypertension. Blood pressures today have ranged from 118-174/74-86. 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 Plan Mild dehydration from GI losses as evidenced by slight elevation in BUN/Cr and slightly low potassium at presentation Inpatient admission Going to surgery from the ER Anticipate ICU level care postoperatively Anticipate will be intubated postoperatively Will need to monitor hemoglobin levels, has been typed and screened Oseguera catheter is in place Monitor volume status Monitor blood pressures Continue empiric antibiotics Follow-up pending urinalysis, specimen has been sent to lab VTE prophylaxis: SCDs, no pharmacological DVT prophylaxis secondary to coffee- ground emesis and melena, Hemoccult positive at presentation along with known iron deficiency anemia from chronic loss related to cecal cancer GI Prophylaxis: PPI Antibiotics: Continue antibiotics as per surgery Pending studies: Urinalysis pending Telemetry: Will monitor initially due to postoperative state for an emergent surgery compliant with hypertension Oseguera: Oseguera catheter in place to monitor output in this surgical patient with plan to remove per usual postoperative guidelines unless clinically contraindicated Line(s): peripheral IVs and Port-A-Cath in place Disposition plan: Home with outpatient follow up is patient's desired discharge plan at this time. I did discuss with her that given the nature of her surgery and anticipated clinical course, she very well may need placement or assistance in the home upon discharge. She wants to see how she is after surgery to help consider options. Code Status: Full Code though patient was clear that if she had clinical condition where her physicians felt that she would not be able to make her own decisions going forward she would not want long-term advanced care measures. Supportive care otherwise Findings, concerns and plans were discussed with patient as well as her daughter Opal Newman and they were given an opportunity to ask questions Plan for today February 09, 2024. Patient is alert awake and oriented and participating in discussion regarding goals of care. Her 2 daughters are additionally at bedside. Patient is aware regarding her grave prognosis. She understands that she is likely to in the coming days. Discussed with her that with a frozen abdomen and unfortunately no surgical intervention amenable she has reached and end-stage with regards to her cancer. She has previously declined chemotherapy. She acknowledges understanding and wishes to proceed with transition to hospice care at home. She wishes to keep the NGT in place for now and continue to eat a clear liquid diet alongside. As needed hydromorphone for pain management, as needed Ativan for anxiety. Continue IV fluids for now. Patient states that she would like to stop at the bank on her way home tomorrow as she has financial end-of-life decisions to make therefore we will continue IV fluids for now with goal to discontinue them at discharge. CODE STATUS changed to DNR/DNI/comfort measures only. Attestations 2 Medical Necessity Statement*: Need for comfort care management, arrangements to transition care to hospice. Coding Level of Care Code 60884 High Time for a total of 55 minutes, includes reviewing past or interval history, examining/interviewing patient, placing orders, counseling patient/family/other support, updating patient/family/other support, discussing plan of care with staff, communicating with other healthcare providers, documenting encounter and coordinating care Diagnoses Coffee ground emesis K92.0 Small bowel obstruction K56.609 Malignant neoplasm of cecum C18.0 Elevated troponin R79.89 Murmur, cardiac R01.1 Essential hypertension I10 Glaucoma, bilateral H40.9
--- NOTE | 2024-02-09 17:26 | P.PN_ITS ---
Subjective 2 Subjective: Postoperative day 1 status post exploratory laparotomy for malignant small bowel obstruction. Patient is doing well this morning, no significant abdominal pain, NG tube connected to low intermittent suction and providing adequate decompression. Family at the bedside. Vitals/I&O/Wt Last Vital Signs Temp 98.0 F 02/09/24 12:00 Pulse 78 02/09/24 16:00 Resp 18 02/09/24 16:23 BP 170/123 02/09/24 16:00 Pulse Ox 97 02/09/24 16:23 O2 Del Method Room Air 02/09/24 16:00 02/09/24 02/09/24 02/09/24 06:59 14:59 22:59 Intake Total 1690 / 2807.667 1940 / 1940 Output Total 1075 / 1075 800 / 800 Balance 615 / 2286.842 1888 / 1140 Weight last 48 hrs Weight 104 lb 11.2 oz Weight 97 lb Weight 97 lb Physical Exam 2 GI: OTHER: Abdomen soft nontender nondistended, surgical incisions covered with dressing. Urinary Catheter Management: Oseguera: Cath Placed During This Visit: yes Urethral Indwelling: Yes Reason for Continuing Indwelling Catheter: Accurate Measurement of Urinary Output in Critically Ill Patients Urinary Catheter Date of Insertion: 02/08/24 Urinary Catheter Time of Insertion: 15:00 Data 02/09/24 03:45 02/09/24 03:45 A&P Assessment and plan (1) Small bowel obstruction: (2) Melena: Plan Patient is postoperative day 1 status post exploratory laparotomy for malignant small bowel obstruction, unfortunately laparotomy show evidence of significant progression of disease making any palliative intervention nonviable during the index operation. This findings were communicated to the patient and family members, there was a family meeting this afternoon with the medical team and decision was made to proceed with comfort care and hospice. Patient would like to go home on hospice care and would like to keep the NG tube in order to prevent recurrent symptoms while she completes all the first that she would like to do. I think this is a reasonable approach, we will need to set up a visiting nurse and hospice service in order to allow her to proceed with the NG tube at home. I have had extensive discussion of the possible outcomes, in the best case scenario with decompression no further obstruction will happen, but there is also the possibility that despite decompression the bowel obstruction proceeds with bowel ischemia necrosis and perforation, I have also explained to the patient and family members that the tumor will continue to grow and therefore can also spontaneously perforated. In this case there is no other surgical options available for the patient and unfortunately the palliative route will be the only option. Patient and family members are very understanding of the situation agreeable with the plan, I gave with no time to answer any questions from the family and patient and they feel satisfied with our answers. Plan for now will be to transition to hospice. Attestations 2 Medical Necessity Statement*: Per medical team. Coding Level of Care Code 72359 Diagnoses Small bowel obstruction K56.609 Melena K92.1
--- NOTE | 2024-02-09 18:29 | PC.NURSE ---
NG tube to stay in per Dr. Wesley for the purpose of suctioning gastric contents and comfort. This was also discussed and agreed with the [facility] hospice team.
--- NOTE | 2024-02-09 18:32 | PC.NURSE ---
Report called to [facility]. Patient and belongings taken to room 258-1. Patient's family called and notified of transfer.
[2024-02-10] VITALS: BP 139/67; PULSE 85; RESP 16; TEMP 36.8; O2SAT 92
[2024-02-10] MEDS: HYDROmorphone 1 mg/mL INJ 1 mL 0.5 MG IVP ×3 (03:09→13:47)
[2024-02-10 04:00] VITALS: BP 196/86; PULSE 85; RESP 17; TEMP 36.9; O2SAT 78
--- NOTE | 2024-02-10 07:59 | P.PN_ITS ---
Subjective 2 Subjective: Postoperative day 2 status post exploratory laparotomy for malignant small bowel obstruction. Patient is doing well this morning no significant abdominal pain NG tube is connected to low intermittent wall suction. Vitals are normal. Vitals/I&O/Wt Last Vital Signs Temp 98.5 F 02/10/24 04:00 Pulse 85 02/10/24 04:00 Resp 17 02/10/24 04:00 BP 196/86 02/10/24 04:00 Pulse Ox 78 L 02/10/24 04:00 O2 Del Method Room Air 02/10/24 04:00 02/09/24 02/10/24 02/10/24 22:59 06:59 14:59 Intake Total 240 / 2180 995 / 3175 Output Total 500 / 1300 0 / 1300 Balance -260 / 880 995 / 1875 Weight last 48 hrs Weight 113 lb 5 oz Weight 104 lb 11.2 oz Weight 97 lb Weight 97 lb Physical Exam 2 GI: OTHER: Abdominal examination is benign, abdomen is soft and appropriately tender, is not distended at this time, surgical incision is healing well no discharge or erythema around the wound Urinary Catheter Management: Osgeuera: Cath Placed During This Visit: yes Urethral Indwelling: Yes Reason for Continuing Indwelling Catheter: Hospice/Comfort/Palliative Care Urinary Catheter Date of Insertion: 02/08/24 Urinary Catheter Time of Insertion: 15:00 Data 02/09/24 03:45 02/09/24 03:45 A&P Assessment and plan (1) Malignant neoplasm of cecum: (2) Small bowel obstruction: Plan Patient has been transitioned to comfort care/palliative care in the last 24 hours. The plan is to plan for services for her to be able to go home on comfort care. Patient and family is in agreement with this. No additional intervention from the surgical standpoint is expected. Attestations 2 Medical Necessity Statement*: Per medical team Coding Level of Care Code Acute Code for [facility] Diagnoses Malignant neoplasm of cecum C18.0 Small bowel obstruction K56.609
[2024-02-10 08:00] VITALS: BP 225/92; PULSE 61; RESP 18; TEMP 37.3; O2SAT 97
--- NOTE | 2024-02-10 08:36 | PM.DCS ---
Discharge Providers Date of Admission: 02/08/24 14:52 Date of Discharge: March 07, 2024 Attending Provider at Admission: Erica Del Rio MD Attending Provider at Discharge: Anne Portillo MD Consults: general surgery Primary Care Provider: Johan Fong MD Diagnoses at Discharge Discharge Diagnosis (1) Malignant neoplasm of cecum: Status: Acute (2) Small bowel obstruction: Status: Acute Reason for Visit Reason for Visit: N/V Coffee ground stool Brief History: Latia Hunter is a 78 year old female who presented to the emergency room with a chief complaint of intractable vomiting. She has a known history of adeno ca for which she has elected not to take chemotherapy in the past. CT on admission showed high-grade mid small bowel obstruction with 2 potential transition points both situated in the right lower quadrant 1 of which is likely neoplastic in nature due to disease progression, generalized abdominal LAD, multiple progressed liver metastasis. She was taken to the OR for urgent decompression. 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 There was no access to any loop of bowel viable for ostomy proximal to this level. Patient was brought back to the ICU with NGT to suction. Patient was alert, awake and oriented x 3 and understood her grave prognosis that with diagnosis of frozen abdomen, this was end of life diagnosis. She declined further discussion with oncology at this time with regards to other palliative options. She decided to transition to comfort care management only. She wishes to keep her NGT in place. Hospice confirms they will remove her sutures from recent procedure. She was discharged with home hospice. Physical Exam Narrative: General: No acute distress, AO x3 HEENT: PERRLA, pupils bilaterally equal and reactive, pallors not present Chest: Normal vesicular breath sounds, no added sounds, equal good air entry bilaterally CVS: S1-S2 regular, no murmurs, no tachycardia, no gallops, no rubs Abdomen: Soft,NGT in place to suction, nontender Neuro: No focal deficits, no facial deformity, AO x3, power 5/5 in all limbs Urinary Catheter Management: Oseguera: Cath Placed During This Visit: yes Urethral Indwelling: Yes Reason for Continuing Indwelling Catheter: Hospice/Comfort/Palliative Care Urinary Catheter Date of Insertion: 02/08/24 Urinary Catheter Time of Insertion: 15:00 Discharge Data Studies Completed and Pending Completed Studies During Hospitalization Category Date Time Status CT abdomen pelvis w con* [id number] Stat Cat Scan 02/08/24 10:24 Completed XR chest 1V portable [id number] Stat Exams 02/08/24 10:17 Completed XR chest 1V portable [id number] Stat Exams 02/08/24 13:30 Completed Radiology Impressions Abdomen/Pelvis CT 02/08/24 10:24 IMPRESSION: 1. Interval development of high-grade mid small bowel obstruction with 2 potential transition points both situated in the right lower quadrant 1 of which is likely neoplastic in nature due to disease progression while the other may be due to an intussusception. 2. Interval development of small amount of pelvic ascites that may be related to the bowel obstruction for which close follow-up recommended. 3. Multiple liver metastasis slightly progressed from previous exam. 4. Localized peritoneal metastasis or metastatic regional lymphadenopathy right lower quadrant relatively unchanged. ADDENDUM: 02/08/24 1308 THIS REPORT CONTAINS FINDINGS THAT MAY BE CRITICAL TO PATIENT CARE. The findings were verbally communicated via telephone conference with KARIME MARTIN at 1:06 PM CDT on 02/08/2024. The findings were acknowledged and understood. Chest X-Ray 02/08/24 13:30 Impression: Satisfactory insertion of nasogastric tube. Laboratory Results WBC 6.68 10^3/uL (3.29-11.43) 02/09/24 03:45 RBC 2.67 10^6/uL (3.85-5.65) L 02/09/24 03:45 Hgb 7.80 g/dL (11.27-16.99) L D 02/09/24 03:45 Hct 25.9 % (36-47) L D 02/09/24 03:45 MCV 97.0 fl (85-98) 02/09/24 03:45 MCH 29.2 pg (27-33) 02/09/24 03:45 MCHC 30.1 g/dL (30-55) 02/09/24 03:45 RDW 16.4 % (12.1-15.1) H 02/09/24 03:45 Plt Count 232 10^3/cmm (157-399) D 02/09/24 03:45 MPV 10.6 fL (7.4-10.4) H 02/09/24 03:45 Neut % (Auto) 86.4 % 02/09/24 03:45 Lymph % (Auto) 6.1 % 02/09/24 03:45 [place] % (Auto) 7.3 % 02/09/24 03:45 Eos % (Auto) 0.0 % 02/09/24 03:45 Baso % (Auto) 0.1 % 02/09/24 03:45 Neut # (Auto) 5.76 10^3/uL (1.8-7.7) 02/09/24 03:45 Lymph # (Auto) 0.4 10^3/uL (0.8-4.8) L 02/09/24 03:45 [place] # (Auto) 0.5 10^3/uL (0.2-0.9) 02/09/24 03:45 Eos # (Auto) 0.0 10^3/uL (0.0-0.8) 02/09/24 03:45 Baso # (Auto) 0.0 10^3/uL (0.0-0.1) 02/09/24 03:45 Nucleated RBC % (auto) 0 % 02/09/24 03:45 Nucleated RBCs # 0.0 /100WBC 02/09/24 03:45 PT 14.40 SECONDS (12.1-14.9) 02/08/24 11:37 INR 1.09 (0.8-1.2) 02/08/24 11:37 APTT 29.1 SECONDS (23.9-36.7) 02/08/24 11:37 Specimen Type Arterial 02/09/24 04:33 Sample Site Brachial, right 02/09/24 04:33 ABG pH 7.38 (7.35-7.45) 02/09/24 04:33 ABG pCO2 38.4 mmHg (35-45) 02/09/24 04:33 ABG pO2 66.0 mmHg (80.0-100.0) L 02/09/24 04:33 ABG PO2/FiO2 Ratio 314 02/09/24 04:33 ABG HCO3 22.9 mmol/L (22-26) 02/09/24 04:33 ABG Base Excess -2.0 mmol/L (-2.0-2.0) 02/09/24 04:33 David Test Pos 02/09/24 04:33 Hematocrit 24.1 % (37-47) L 02/09/24 04:33 O2 Delivery Device None 02/09/24 04:33 FiO2 21.0 % 02/09/24 04:33 Manager Core ID [email or web address] 02/09/24 04:33 Sodium 148 mmol/L (136-145) H 02/09/24 03:45 Potassium 4.5 mmol/L (3.5-5.1) 02/09/24 03:45 Chloride 113 mmol/L (98-107) H 02/09/24 03:45 Carbon Dioxide 23 mmol/L (22-29) 02/09/24 03:45 Anion Gap 16.5 (5-19) 02/09/24 03:45 BUN 37 mg/dL (8-23) H 02/09/24 03:45 Creatinine 1.3 mg/dL (0.5-0.9) H 02/09/24 03:45 GFR Calculation Not Reportable 02/09/24 03:45 Glucose 129 mg/dL (65-115) H 02/09/24 03:45 Calculated Osmolality 316 mOsm/kg (285-295) H 02/09/24 03:45 Calcium 8.1 mg/dL (8.5-10.5) L 02/09/24 03:45 Phosphorus 2.9 mg/dL (2.5-4.5) 02/09/24 03:45 Magnesium 1.7 mg/dL (1.7-2.3) 02/09/24 03:45 Total Bilirubin 0.3 mg/dL (0.15-1.2) 02/09/24 03:45 AST 13 U/L (0-32) 02/09/24 03:45 ALT 10 U/L (0-33) 02/09/24 03:45 Alkaline Phosphatase 114 U/L (35-105) H 02/09/24 03:45 Ammonia 42 umol/L (11-51) 02/08/24 11:37 Troponin T Baseline 24 ng/L (0-10) H 02/08/24 11:37 Troponin T 120 Minute 26.46 ng/L (0-10) H 02/08/24 13:33 Delta Troponin T 2.46 ABS# (0-10) 02/08/24 13:33 Total Protein 5.2 g/dL (6.6-8.7) L 02/09/24 03:45 Albumin 3.2 g/dL (3.5-5.2) L 02/09/24 03:45 Globulin 2.0 g/dL (1.3-4.6) 02/09/24 03:45 Urine Color Yellow (Yellow) 02/08/24 14:38 Urine Appearance Slightly cloudy (CLEAR) 02/08/24 14:38 Urine pH 5 (5-7) 02/08/24 14:38 Ur Specific [place] 1.010 (1.005-1.030) 02/08/24 14:38 Urine Protein 1+ (Negative) H 02/08/24 14:38 Urine Glucose (UA) Norm (Normal) 02/08/24 14:38 Urine Ketones 1+ (Negative) H 02/08/24 14:38 Urine Blood Trace (Negative) H 02/08/24 14:38 Urine Nitrate Negative (Negative) 02/08/24 14:38 Urine Bilirubin 1+ (Negative) H 02/08/24 14:38 Urine Urobilinogen Norm mg/dL (Negative) 02/08/24 14:38 Ur Leukocyte Esterase Negative (Negative) 02/08/24 14:38 Urine RBC 0-4 /hpf (0-2) H 02/08/24 14:38 Urine WBC 0-4 /hpf (0-5) H 02/08/24 14:38 Ur Squamous Epith Cells 0-4 /hpf (0-5) H 02/08/24 14:38 Amorphous Sediment Not Reportable 02/08/24 14:38 Urine Bacteria Trace /hpf (NONE) 02/08/24 14:38 Gastric Occult Blood Positive (Negative) H 02/08/24 10:30 Blood Type A Negative 02/08/24 10:29 Rho(D) Type Rh negative 02/08/24 10:29 Antibody Screen Negative 02/08/24 10:29 Vitals Last Vital Signs Temp 99.2 F 02/10/24 08:00 Pulse 61 02/10/24 08:00 Resp 18 02/10/24 08:00 BP 225/92 02/10/24 08:00 Pulse Ox 97 02/10/24 08:00 O2 Del Method Nasal Cannula 02/10/24 08:00 Discharge Plan Discharge Patient Disposition: Hospice - Home Condition: Stable Prescriptions: Continued timolol maleate 0.5 % drops 1 drp ophthalmic (eye) BID Discharge Orders: Discharge Order (Routine); Ordered 02/10/24 Ordered By: Anne Portillo Referrals: Reginald Wesley MD [Physician] - 02/24/24 10:35 am Johan Fong MD [Primary Care Provider] - 02/15/24 10:00 am (APPOINTMENT FOR LABS AT 10:[address] FONG AT 11:30) Discharge Diet: Advance as tolerated, Clear Liquid and Full LIquid Discharge Activity: Resume usual activity Patient Instructions: Hospice Care, Opioid Safety Discharge Attestations Time Spent in Discharge Care*: greater than 30 min Status at Discharge: Cognitive status at discharge: cognitively intact, Behavioral status at discharge: cooperative, Quality Metrics Clinical Quality Measures [ No reported AMI, CVA or VTE this stay] Coding Level of Care Code Acute Code for Chg Fwd Diagnoses Malignant neoplasm of cecum C18.0 Small bowel obstruction K56.609
--- NOTE | 2024-02-10 15:16 | PC.SOCIAL ---
IMM updated IMM dated and initialed, copy given to patient and copy placed in chart.
== END 2024-02-10 13:00 | disposition hospice, home (50) | DRG 357 ==
LOC: ER 14:06 → OR 14:31 → ICU 14:53 → MEDSURG 02-09 19:25
PROVIDERS: Surgery; Admitting Provider Hospitalist; Emergency Provider Family Medicine; PCP Internal Medicine Medical Oncology; Visit Provider Student in an Organized Health Care Education/Training Program
PROC: 0WJG0ZZ Inspection of Peritoneal Cavity, Open Approach (ICD-10-PCS; CPT 49000; principal; 2024-02-08 15:00)
DX: C18.0 Malignant neoplasm of cecum (principal); C78.6 Secondary malignant neoplasm of retroperitoneum and peritoneum; C78.7 Secondary malignant neoplasm of liver and intrahepatic bile duct; H40.9 Unspecified glaucoma; I12.9 Hypertensive chronic kidney disease with stage 1 through stage 4 chronic kidney disease, or unspecified chronic kidney disease; N18.9 Chronic kidney disease, unspecified; D50.9 Iron deficiency anemia, unspecified; R79.89 Other specified abnormal findings of blood chemistry; R01.1 Cardiac murmur, unspecified; E86.0 Dehydration; Z51.5 Encounter for palliative care; Z66 Do not resuscitate; Z85.3 Personal history of malignant neoplasm of breast; Z95.828 Presence of other vascular implants and grafts; Z87.891 Personal history of nicotine dependence; Z90.49 Acquired absence of other specified parts of digestive tract; Z90.3 Acquired absence of stomach [part of]; Z90.13 Acquired absence of bilateral breasts and nipples
CPT/HCPCS: 36415; 36600; 51702; 71045; 74177; 80053; 81001; 82140; 82271; 82803; 83735; 84100; 84484; 85025; 85610; 85730; 86850; 86900; 93005; 96365; 96367; 96374; 96375; 96376; 99285; J0131; J0330; J1100; J1170; J2405; J2470; J2543; J2704; J3010; J3370; J3480; J3490; J7030; J7050; P9045; Q9967

== ENCOUNTER 2024-02-12 17:11 | Emergency (ER) | payer MEDICARE, SELFPAY ==
[2024-02-12 17:12] VITALS: BP 185/83; PULSE 68; RESP 16; TEMP 36.7; O2SAT 93; BMI 18.3
--- NOTE | 2024-02-12 17:24 | XRR_ITS ---
PROCEDURE INFORMATION: Exam: XR Abdomen Exam date and time: 02/12/2024 6:11 PM Age: 78 years old Clinical indication: Device placement; Gi device; Nasogastric tube; Prior surgery; Surgery date: 6+ months; Surgery type: Colon/hysterectomy/bilateral breast/appy; Additional info: Sbo TECHNIQUE: Imaging protocol: Radiologic exam of the abdomen. Views: 2 Views. Upright and supine views. COMPARISON: CT abdomen pelvis w con* [id number] 02/08/2024 12:25 PM FINDINGS: Tubes, catheters and devices: The NG tube terminates in the body of the stomach. Lungs: The visualized lungs demonstrate minimal atelectasis at the right lung base. Heart/Mediastinum: Heart mediastinum and vianca are not enlarged in this projection. Gastrointestinal tract: Moderate amount of bowel gas primarily in the colon. Mild distension of the transverse colon at up to 7.3 cm. Intraperitoneal space: Small to moderate volume of pneumoperitoneum. Bones/joints: No acute osseous abnormality identified. Soft tissues: Midline surgical skin wilberto are noted suggesting recent abdominal surgery. XR/XR acute abdomen series [id number] IMPRESSION: 1. Pneumoperitoneum. This would be most consistent with recent surgery, given the interval appearance of surgical skin wilberto however clinical confirmation requested. 2. NG tube in stomach. .
--- NOTE | 2024-02-12 17:32 | ED_ITS ---
Documented by User: Bethel Parish DO 02/13/24 11:30 HPI - General Adult 2 General: Chief complaint: General Medical Stated complaint: needs NG tube Time Seen by Provider: 02/12/24 17:23 Source: patient Mode of arrival: ambulatory History of Present Illness: 78-year-old female with a known history of widely metastasized colon cancer. She was seen earlier this week with a bowel obstruction high-grade obstruction she was taken to surgery although it was deemed rather risky she was aware of this. She had such severe omental caking her abdomen is basically frozen they were able to get the obstruction resolved she was discharged home on palliative care with an NG and pump to use intermittently she is actually been doing fairly well on that through the last several days. Earlier today the NG tube was dislodged she has been having some bowel movements she is having a little bit of abdominal bloating but no significant pain at this point Onset (ago): hour(s) Associated symptoms: Reports nausea; Deny chest pain, confusion, cough, diaphoresis, decreased appetite, dyspnea, fevers/chills, headache(s), malaise, rash, palpitations, seizures, short of breath, syncope, vomiting or weakness Review of Systems 2 Const: Denies: fever(s), chills, malaise or diaphoresis Card: Denies: chest pain, palpitations or syncope Resp: Denies: dyspnea GI: Reports: abdominal pain, nausea and bloating; Denies: vomiting : Denies: dysuria, urinary frequency or urinary urgency Musc: Denies: neck pain or back pain Skin/Breast: Denies: rash Neuro: Denies: headache(s) or confusion PFSH ED 2 PFSH: Medical History 8 History of echocardiogram 01/2023 LV systolic function is normal with EF of 60 to 65%. Left atrial dilation. Mild tricuspid regurgitation. Moderate pulmonary hypertension. Mild pulmonic regurgitation. Murmur, cardiac Helicobacter pylori gastritis Pulmonary nodule B12 deficiency Essential hypertension failed treatment with 5-6 medications due to side effects and opted not to try any more medications Anemia Glaucoma History of breast cancer Nephrocalcinosis Atrophic kidney Hx of heat stroke Surgical History History of esophagogastroduodenoscopy (EGD) (06/2023) Hx of hemorrhoidectomy History of colonoscopy (06/29/23) H/O hysterectomy with unilateral oophorectomy History of partial gastrectomy Partial gastrectomy and partial small bowel resection, apparently for perforated viscus Hx of bilateral mastectomy (~1999) For cancer of the left breast Family History Family/Other Cancer breast; 36 family members Grandmother Diabetes Alcoholism in family member Mother Alcoholism in family member Denies family history of CAD (coronary artery disease) Clotting disorder Dementia Psychiatric illness Anesthesia complication Bleeding disorder Family history of premature coronary artery disease Stroke Social History Smoking and tobacco/nicotine status: never used tobacco/nicotine Second hand smoke exposure: No Alcohol intake: current Alcohol intake frequency: holidays/special occasions only Alcohol type: wine Substance/Drug Use: never Adopted: No Caregiver/support person: Yes (friend) Lives independently: Yes Household members: none Marital status: / service: No Current occupational status: retired Current gender identity: Female Chiqui/Latter-Day: Sabianism Special chiqui needs: Yes Agree to transfusion: No Physical Exam 2 Const: GENERAL APPEARANCE: cooperative and comfortable O RIENTATION/CONSCIOUSNESS: Yes awake, Yes oriented to person, Yes oriented to place and Yes oriented to time HENMT: COMMON NORMALS: normocephalic, atraumatic and hearing grossly normal bilaterally HEAD & SCALP: normocephalic and atraumatic Resp: COMMON NORMALS: normal respiratory effort, No retractions, No use of accessory muscles and clear to auscultation bilaterally AUSCULTATION: clear to auscultation bilaterally Cardio: COMMON NORMALS: regular rate, regular rhythm and No murmurs present (Cardio) RATE: regular rate RHYTHM: regular rhythm GI: COMMON NORMALS: No hepatosplenomegaly present AUSCULTATION: Yes Hypoactive bowel sounds present PALPATION: Yes Tenderness to palpation present (GI), No Guarding due to palpation present (GI) and Yes No hepatosplenomegaly present Extremity: COMMON NORMALS: normal to inspection, capillary refill normal, no clubbing, cyanosis or edema, no calf tenderness and no pedal edema Neuro: SENSORIUM/ORIENTATION: Yes oriented to person, Yes oriented to place and Yes oriented to time Skin: COMMON NORMALS: no rashes or lesions noted GENERAL SKIN EXAM: no rashes or lesions noted Course 2 Vital Signs: Vital signs: Vital Signs Temperature 98.1 F 02/12/24 17:12 Pulse Rate 72 02/12/24 19:16 Respiratory Rate 16 02/12/24 19:16 Blood Pressure 165/79 02/12/24 18:11 Pulse Oximetry 97 02/12/24 19:16 Oxygen Delivery Me thod Room Air 02/12/24 18:11 MDM - General Adult Medical Decision Making Searching for a NG tube hopefully to replace with the same tube that she was discharged home with or trying to confirm which tube that was. Anticipate placing the NG tube confirming place and discharging patient home to continue with palliative care as per her request. Did offer her IV fluids which she declined. Care signed out to Dr. Ambriz at change of shift. See final notes for diagnosis and disposition. Lab Data 02/12/24 18:13 02/12/24 18:13 Radiology Impressions Chest/Abdomen X-ray 02/12/24 17:24 IMPRESSION: 1. Pneumoperitoneum. This would be most consistent with recent surgery, given the interval appearance of surgical skin wilberto however clinical confirmation requested. 2. NG tube in stomach. . ADDENDUM: 02/12/241938 COMMENT: THIS REPORT CONTAINS FINDINGS THAT MAY BE CRITICAL TO PATIENT CARE. The exam findings were verbally communicated via telephone by myself to Dr Cynthia Ambriz at 7:36 PM CDT on 02/12/2024. Patient has undergone recent abdominal surgery. The findings were acknowledged and understood. Laboratory Results WBC 5.42 10^3/uL (3.29-11.43) 02/12/24 18:13 RBC 3.06 10^6/uL (3.85-5.65) L 02/12/24 18:13 Hgb 8.80 g/dL (11.27-16.99) L 02/12/24 18:13 Hct 28.6 % (36-47) L 02/12/24 18:13 MCV 93.5 fl (85-98) 02/12/24 18:13 MCH 28.8 pg (27-33) 02/12/24 18:13 MCHC 30.8 g/dL (30-55) 02/12/24 18:13 RDW 14.4 % (12.1-15.1) 02/12/24 18:13 Plt Count 188 10^3/cmm (157-399) 02/12/24 18:13 MPV 10.0 fL (7.4-10.4) 02/12/24 18:13 Neut % (Auto) 76.3 % 02/12/24 18:13 Lymph % (Auto) 10.0 % 02/12/24 18:13 [place] % (Auto) 9.2 % 02/12/24 18:13 Eos % (Auto) 4.1 % 02/12/24 18:13 Baso % (Auto) 0.2 % 02/12/24 18:13 Neut # (Auto) 4.14 10^3/uL (1.8-7.7) 02/12/24 18:13 Lymph # (Auto) 0.5 10^3/uL (0.8-4.8) L 02/12/24 18:13 [place] # (Auto) 0.5 10^3/uL (0.2-0.9) 02/12/24 18:13 Eos # (Auto) 0.2 10^3/uL (0.0-0.8) 02/12/24 18:13 Baso # (Auto) 0.0 10^3/uL (0.0-0.1) 02/12/24 18:13 Nucleated RBC % (auto) 0 % 02/12/24 18:13 Nucleated RBCs # 0.0 /100WBC 02/12/24 18:13 Sodium 140 mmol/L (136-145) 02/12/24 18:13 Potassium 3.6 mmol/L (3.5-5.1) 02/12/24 18:13 Chloride 107 mmol/L (98-107) 02/12/24 18:13 Carbon Dioxide 25 mmol/L (22-29) 02/12/24 18:13 Anion Gap 11.6 (5-19) 02/12/24 18:13 BUN 12 mg/dL (8-23) 02/12/24 18:13 Creatinine 0.8 mg/dL (0.5-0.9) 02/12/24 18:13 GFR Calculation Not Reportable 02/12/24 18:13 Glucose 111 mg/dL (65-115) 02/12/24 18:13 Calculated Osmolality 290 mOsm/kg (285-295) 02/12/24 18:13 Lactic Acid 1.0 mmol/L (0.5-2.2) 02/12/24 18:13 Calcium 8.4 mg/dL (8.5-10.5) L 02/12/24 18:13 Total Bilirubin 0.2 mg/dL (0.15-1.2) 02/12/24 18:13 AST 16 U/L (0-32) 02/12/24 18:13 ALT 13 U/L (0-33) 02/12/24 18:13 Alkaline Phosphatase 119 U/L (35-105) H 02/12/24 18:13 Total Protein 5.6 g/dL (6.6-8.7) L 02/12/24 18:13 Albumin 3.2 g/dL (3.5-5.2) L 02/12/24 18:13 Globulin 2.4 g/dL (1.3-4.6) 02/12/24 18:13 Discharge Plan Discharge Patient Disposition: Home Clinical Impression: Impaired nasogastric feeding tube Qualifiers: Encounter type: initial encounter Qualified Code(s): T85.598A - Other mechanical complication of other gastrointestinal prosthetic devices, implants and grafts, initial encounter Condition: Stable Prescriptions: No Action timolol maleate 0.5 % drops 1 drp ophthalmic (eye) BID Discharge Orders: Discharge ED (Routine); Ordered 02/12/24 Ordered By: Cynthia Ambriz Referrals: Johan Callahan MD [Primary Care Provider] - Discharge Diet: As Directed Discharge Activity: Increase activity as tolerated Patient Instructions: Nasogastric Tube (DC) Activity Restrictions/Additional Instructions: Thank you for choosing [facility] for your healthcare needs today. Please realize this is an emergency room and that we are providing you with a medical screening exam and this may not be complete and all inclusive of all the testing and or work up that you may need to determine your ailment or severity of your illness. You have been screened and evaluated and felt safe for discharge. Health conditions do change or evolve sometimes and as such it is important that you follow up with your Primary Doctor to be re checked, 3-5 days is a general good time frame for follow up. You are always welcome to return to the ED for re assessment if your symptoms are worsening or you have new concerns Coding Level of Care Code ED Assembly And Packing Supervisor for Chg Fwd Documented by User: Cynthia Ambriz MD 02/12/24 19:13 HPI - General Adult 2 General: Chief complaint: General Medical Stated complaint: needs NG tube Time Seen by Provider: 02/12/24 17:23 PFSH ED 2 PFSH: Medical History 8 History of echocardiogram 01/2023 LV systolic function is normal with EF of 60 to 65%. Left atrial dilation. Mild tricuspid regurgitation. Moderate pulmonary hypertension. Mild pulmonic regurgitation. Murmur, cardiac Helicobacter pylori gastritis Pulmonary nodule B12 deficiency Essential hypertension failed treatment with 5-6 medications due to side effects and opted not to try any more medications Anemia Glaucoma History of breast cancer Nephrocalcinosis Atrophic kidney Hx of heat stroke Surgical History History of esophagogastroduodenoscopy (EGD) (06/2023) Hx of hemorrhoidectomy History of colonoscopy (06/29/23) H/O hysterectomy with unilateral oophorectomy History of partial gastrectomy Partial gastrectomy and partial small bowel resection, apparently for perforated viscus Hx of bilateral mastectomy (~1999) For cancer of the left breast Family History Family/Other Cancer breast; 36 family members Grandmother Diabetes Alcoholism in family member Mother Alcoholism in family member Denies family history of CAD (coronary artery disease) Clotting disorder Dementia Psychiatric illness Anesthesia complication Bleeding disorder Family history of premature coronary artery disease Stroke Social History Smoking and tobacco/nicotine status: never used tobacco/nicotine Second hand smoke exposure: No Alcohol intake: current Alcohol intake frequency: holidays/special occasions only Alcohol type: wine Substance/Drug Use: never Adopted: No Caregiver/support person: Yes (friend) Lives independently: Yes Household members: none Marital status: / service: No Current occupational status: retired Current gender identity: Female Chiqui/Latter-Day: Sabianism Special chiqui needs: Yes Agree to transfusion: No Course 2 Vital Signs: Vital signs: Vital Signs Temperature 98.1 F 02/12/24 17:12 Pulse Rate 72 02/12/24 19:16 Respiratory Rate 16 02/12/24 19:16 Blood Pressure 165/79 02/12/24 18:11 Pulse Oximetry 97 02/12/24 19:16 Oxygen Delivery Me thod Room Air 02/12/24 18:11 MDM - General Adult Medical Decision Making Searching for a NG tube hopefully to replace with the same tube that she was discharged home with or trying to confirm which tube that was. Anticipate placing the NG tube confirming place and discharging patient home to continue with palliative care as per her request. Did offer her IV fluids which she declined. Care signed out to Dr. Ambriz at change of shift. See final notes for diagnosis and disposition. X-ray showed good NG tube placement. Patient being discharged home. Lab Data 02/12/24 18:13 02/12/24 18:13 Radiology Impressions Chest/Abdomen X-ray 02/12/24 17:24 IMPRESSION: 1. Pneumoperitoneum. This would be most consistent with recent surgery, given the interval appearance of surgical skin wilberto however clinical confirmation requested. 2. NG tube in stomach. . ADDENDUM: 02/12/241938 COMMENT: THIS REPORT CONTAINS FINDINGS THAT MAY BE CRITICAL TO PATIENT CARE. The exam findings were verbally communicated via telephone by myself to Dr Cynthia Ambriz at 7:36 PM CDT on 02/12/2024. Patient has undergone recent abdominal surgery. The findings were acknowledged and understood. Laboratory Results WBC 5.42 10^3/uL (3.29-11.43) 02/12/24 18:13 RBC 3.06 10^6/uL (3.85-5.65) L 02/12/24 18:13 Hgb 8.80 g/dL (11.27-16.99) L 02/12/24 18:13 Hct 28.6 % (36-47) L 02/12/24 18:13 MCV 93.5 fl (85-98) 02/12/24 18:13 MCH 28.8 pg (27-33) 02/12/24 18:13 MCHC 30.8 g/dL (30-55) 02/12/24 18:13 RDW 14.4 % (12.1-15.1) 02/12/24 18:13 Plt Count 188 10^3/cmm (157-399) 02/12/24 18:13 MPV 10.0 fL (7.4-10.4) 02/12/24 18:13 Neut % (Auto) 76.3 % 02/12/24 18:13 Lymph % (Auto) 10.0 % 02/12/24 18:13 [place] % (Auto) 9.2 % 02/12/24 18:13 Eos % (Auto) 4.1 % 02/12/24 18:13 Baso % (Auto) 0.2 % 02/12/24 18:13 Neut # (Auto) 4.14 10^3/uL (1.8-7.7) 02/12/24 18:13 Lymph # (Auto) 0.5 10^3/uL (0.8-4.8) L 02/12/24 18:13 [place] # (Auto) 0.5 10^3/uL (0.2-0.9) 02/12/24 18:13 Eos # (Auto) 0.2 10^3/uL (0.0-0.8) 02/12/24 18:13 Baso # (Auto) 0.0 10^3/uL (0.0-0.1) 02/12/24 18:13 Nucleated RBC % (auto) 0 % 02/12/24 18:13 Nucleated RBCs # 0.0 /100WBC 02/12/24 18:13 Sodium 140 mmol/L (136-145) 02/12/24 18:13 Potassium 3.6 mmol/L (3.5-5.1) 02/12/24 18:13 Chloride 107 mmol/L (98-107) 02/12/24 18:13 Carbon Dioxide 25 mmol/L (22-29) 02/12/24 18:13 Anion Gap 11.6 (5-19) 02/12/24 18:13 BUN 12 mg/dL (8-23) 02/12/24 18:13 Creatinine 0.8 mg/dL (0.5-0.9) 02/12/24 18:13 GFR Calculation Not Reportable 02/12/24 18:13 Glucose 111 mg/dL (65-115) 02/12/24 18:13 Calculated Osmolality 290 mOsm/kg (285-295) 02/12/24 18:13 Lactic Acid 1.0 mmol/L (0.5-2.2) 02/12/24 18:13 Calcium 8.4 mg/dL (8.5-10.5) L 02/12/24 18:13 Total Bilirubin 0.2 mg/dL (0.15-1.2) 02/12/24 18:13 AST 16 U/L (0-32) 02/12/24 18:13 ALT 13 U/L (0-33) 02/12/24 18:13 Alkaline Phosphatase 119 U/L (35-105) H 02/12/24 18:13 Total Protein 5.6 g/dL (6.6-8.7) L 02/12/24 18:13 Albumin 3.2 g/dL (3.5-5.2) L 02/12/24 18:13 Globulin 2.4 g/dL (1.3-4.6) 02/12/24 18:13 All radiology interpretation(s) finalized by discharge Discharge Plan Discharge Patient Disposition: Home Clinical Impression: Impaired nasogastric feeding tube Qualifiers: Encounter type: initial encounter Qualified Code(s): T85.598A - Other mechanical complication of other gastrointestinal prosthetic devices, implants and grafts, initial encounter Condition: Stable Prescriptions: No Action timolol maleate 0.5 % drops 1 drp ophthalmic (eye) BID Discharge Orders: Discharge ED (Routine); Ordered 02/12/24 Ordered By: Cynthia Ambriz Referrals: Johan Callahan MD [Primary Care Provider] - Discharge Diet: As Directed Discharge Activity: Increase activity as tolerated Patient Instructions: Nasogastric Tube (DC) Activity Restrictions/Additional Instructions: Thank you for choosing [facility] for your healthcare needs today. Please realize this is an emergency room and that we are providing you with a medical screening exam and this may not be complete and all inclusive of all the testing and or work up that you may need to determine your ailment or severity of your illness. You have been screened and evaluated and felt safe for discharge. Health conditions do change or evolve sometimes and as such it is important that you follow up with your Primary Doctor to be re checked, 3-5 days is a general good time frame for follow up. You are always welcome to return to the ED for re assessment if your symptoms are worsening or you have new concerns Coding Level of Care Code ED Assembly And Packing Supervisor for Jacob Castaneda
[2024-02-12 18:11] VITALS: BP 165/79; PULSE 72; O2SAT 98
[2024-02-12 18:18] LABS: Basophils % 0.2 %; Eosinophils # 0.2 10^3/uL (0.0-0.8); Eosinophils % 4.1 %; Hematocrit 28.6 % (36-47); Lymphocytes # 0.5 10^3/uL (0.8-4.8); Mean Corpuscular HGB Conc 30.8 g/dL (30-55); Mean Corpuscular Hemoglobin 28.8 pg (27-33); Mean Corpuscular Volume 93.5 fl (85-98); Monocytes # 0.5 10^3/uL (0.2-0.9); Monocytes % 9.2 %; Neutrophils # 4.14 10^3/uL (1.8-7.7); Neutrophils % 76.3 %; Nucleated Red Blood Cells % 0 %; Platelet Count 188 10^3/cmm (157-399); Red Blood Count 3.06 10^6/uL (3.85-5.65); Red Cell Distribution Width 14.4 % (12.1-15.1); White Blood Count 5.42 10^3/uL (3.29-11.43)
[2024-02-12 18:35] LABS: Alanine Aminotransferase 13 U/L (0-33); Albumin Level 3.2 g/dL (3.5-5.2); Alkaline Phosphatase 119 U/L (35-105); Anion Gap 11.6 (5-19); Aspartate Amino Transferase 16 U/L (0-32); Blood Urea Nitrogen 12 mg/dL (8-23); Calcium 8.4 mg/dL (8.5-10.5); Carbon Dioxide 25 mmol/L (22-29); Chloride 107 mmol/L (98-107); Creatinine Clr Calc Pharmacy 39.2728; Globulin 2.4 g/dL (1.3-4.6); Glucose 111 mg/dL (65-115); Osmolality Calculated 290 mOsm/kg (285-295); Potassium 3.6 mmol/L (3.5-5.1); Sodium 140 mmol/L (136-145); Total Bilirubin 0.2 mg/dL (0.15-1.2); Total Protein 5.6 g/dL (6.6-8.7)
[2024-02-12 19:16] VITALS: PULSE 72; RESP 16; O2SAT 97
== END 2024-02-12 19:17 | disposition home or self-care (01) ==
PROVIDERS: Family Medicine; Emergency Provider Emergency Medicine; PCP Internal Medicine Medical Oncology
DX: T85.598A Other mechanical complication of other gastrointestinal prosthetic devices, implants and grafts, initial encounter (principal); I10 Essential (primary) hypertension; Z85.3 Personal history of malignant neoplasm of breast; C18.9 Malignant neoplasm of colon, unspecified; Y73.1 Therapeutic (nonsurgical) and rehabilitative gastroenterology and urology devices associated with adverse incidents
CPT/HCPCS: 36415; 74022; 80053; 83605; 85025; 99284

== ENCOUNTER 2024-03-17 14:00 | Oncology outpatient (recurring) (ONCR) | payer MEDICARE, SELFPAY ==
[2024-03-10 15:31] VITALS: BP 179/80; PULSE 80; RESP 16; TEMP 36.6; O2SAT 99
[2024-03-10] MEDS: sodium chloride 0.9% 250 ML 75 ML IV (15:48)
[2024-03-10] MEDS: ferric carboxy (PYXIS) 750 MG in sodium chloride 0.9% (100 ml) 100 ML 345 MG IV (15:49)
[2024-03-10 17:06] VITALS: BP 114/78; PULSE 74; RESP 18; TEMP 36.6; O2SAT 97
[2024-03-10 17:18] LABS: Basophils % 0.5 %; Eosinophils # 0.2 10^3/uL (0.0-0.8); Eosinophils % 3.3 %; Hematocrit 33.5 % (36-47); Lymphocytes # 0.9 10^3/uL (0.8-4.8); Lymphocytes % 14.5 %; Mean Corpuscular HGB Conc 31.3 g/dL (30-55); Mean Corpuscular Hemoglobin 28.2 pg (27-33); Mean Corpuscular Volume 90.1 fl (85-98); Mean Platelet Volume 11.1 fL (7.4-10.4); Monocytes # 0.5 10^3/uL (0.2-0.9); Monocytes % 7.7 %; Neutrophils # 4.43 10^3/uL (1.8-7.7); Neutrophils % 73.7 %; Nucleated Red Blood Cells % 0 %; Platelet Count 160 10^3/cmm (157-399); Red Blood Count 3.72 10^6/uL (3.85-5.65); White Blood Count 6.01 10^3/uL (3.29-11.43)
[2024-03-10 17:36] LABS: Albumin Level 3.1 g/dL (3.5-5.2); Alkaline Phosphatase 224 U/L (35-105); Blood Urea Nitrogen 20 mg/dL (8-23); Calcium 8.2 mg/dL (8.5-10.5); Carbon Dioxide 27 mmol/L (22-29); Chloride 99 mmol/L (98-107); Ferritin 462 ng/mL (15-150); Globulin 2.2 g/dL (1.3-4.6); Glucose 90 mg/dL (65-115); Iron 568 ug/dL (37-145); Osmolality Calculated 284 mOsm/kg (285-295); Percent Saturation 86.3 % (20-50); Sodium 136 mmol/L (136-145); Total Bilirubin 0.4 mg/dL (0.15-1.2); Total Iron Binding Capacity 658 mcg/dl; Total Protein 5.3 g/dL (6.6-8.7); Unsaturated Iron Binding 90 ug/dL (112-347)
[2024-03-10 17:54] LABS: Anion Gap 14.1 (5-19); Potassium 4.1 mmol/L (3.5-5.1)
[2024-03-10 18:17] LABS: Alanine Aminotransferase < 5 U/L (0-33); Aspartate Amino Transferase 5 U/L (0-32)
[2024-03-17] MEDS: iohexol 350 mg/mL 500 mL Btl (per mL) PO (13:30)
--- NOTE | 2024-03-17 14:00 | CT_ITS ---
WS: [id number] CT ABDOMEN AND PELVIS WITH CONTRAST HISTORY: colon cancer TECHNIQUE: Imaging performed of the abdomen and pelvis with IV contrast. Single phase imaging of the abdomen. Coronal and sagittal reformats are submitted. All CT scans at [facility] use at [address] one of these dose optimization techniques: automated exposure control; mA and/or kV adjustment per patient size (includes targeted exams where dose is matched to clinical indication); or iterative re construction. IV CONTRAST: Omnipaque 350; 100 mL IV. Oral contrast: Yes. DLP: 235.95 mGy.cm COMPARISON: 02/08/2024, 10/09/2023 Lower thorax: Hyperinflated lungs from emphysema. Heart is normal size. Small hiatal hernia. Liver/biliary system: Numerous metastatic masses are present within the liver. These have increased s lightly in size. [employer] metastatic lesion in the superior RIGHT lobe of the liver measures 3. 5 x 3.2 x 3.9 cm. Prior measurement of 2.3 x 2.6 x 3.2 cm. There are several metastatic lesions great er than 3 cm. There are additional smaller cysts and too small to characterize hypodensities. No bile duct dilatation. Portal vein is patent. Gallbladder: Mildly contracted gallbladder. Pancreas: Normal size pancreas and pancreatic duct. No adjacent inflammation. Spleen: Normal size spleen. No mass or infarct. Adrenal glands: Normal. Right kidney: Normal size kidney. Upper pole cyst is unchanged. No hydronephrosis. Left kidney: Moderate atrophy with nonobstructing renal calcifications. No change. Aorta: Mild atherosclerosis with no aneurysm. Mesenteric arteries are normal. Lymphadenopathy: There are a few small retroperitoneal lymph nodes. These appear to be new since the prior study but are less than a centimeter. Reidentified is a cluster metastatic deposits in the RIGH T lower quadrant which have been previously described. The largest nodule measures 2.0 x 2.2 cm. Ther e are smaller satellite nodules. Reidentified is a soft tissue mass encasing what may be the distal s mall bowel and cecum. This is also been previously described. Highly suspicious for neoplastic involv ement and at least partial obstruction although there is no significant dilatation of the small bowel . The lumen is narrowed. Free fluid: There is a small amount of ascites which has progressed since 02/08/2024. There is soft tis elieser anasarca and mesenteric stranding. The mesenteric thickening and stranding may be edema or omenta l carcinomatosis. GI tract: Normally distended stomach. No small bowel obstruction. Previously described small bowel ob struction has resolved. Reidentified is the mass in the RIGHT lower quadrant which is probably involv ing the distal small bowel and the colon. There is a component of mild obstruction. Abdominal wall: Soft tissue anasarca. Pelvis: Small amount of ascites in the pelvis. Bones: Increase in the lumbar lordosis. CT/CT abdomen pelvis w con* [id number] IMPRESSION: 1. Increasing ascites within the abdomen and pelvis with increasing attenuatio n in the omentum. The increasing omental changes may be edema or omental carcin omatosis. 2. Patient has known numerous hepatic metastatic sites which have continued to increase in size. 3. Continued metastatic nodules/implants in the RIGHT lower quadrant without s ignificant change. 4. Reidentified is a circumferential mass involving what is probably the dista l small bowel and the cecum/ascending colon. There is narrowing of the lumen bu t no small bowel obstruction at this time. This is also at the site of the nume thaddeus metastatic deposits. 5. There are a few retroperitoneal lymph nodes which are subcentimeter but new . May represent early metastatic disease. 6. Age atrophic LEFT kidney with nonobstructing calcifications. 7. Increasing soft tissue edema and anasarca.
[2024-03-17 14:02] LABS: Blood Urea Nitrogen 24 mg/dL (8-23); Creatinine Clr Calc Pharmacy 29.0049
[2024-03-17] MEDS: iohexol 350 mg/mL 500 mL Btl (per mL) IV (14:18)
== END 2024-04-02 23:59 | disposition home or self-care (01) ==
PROVIDERS: PCP Internal Medicine Medical Oncology; Visit Provider Internal Medicine Medical Oncology
DX: Z53.9 Procedure and treatment not carried out, unspecified reason; C18.0 Malignant neoplasm of cecum
CPT/HCPCS: 74177; 80053; 82378; 82565; 82728; 83540; 83550; 84520; 85025; 96365; 99214; J1439; J7050; Q9967

== ENCOUNTER 2024-04-13 10:54 | Oncology outpatient (recurring) (ONCR) | payer MEDICARE, SELFPAY ==
[2024-04-13 11:23] LABS: Basophils # 0.1 10^3/uL (0.0-0.1); Basophils % 0.7 %; Eosinophils # 0.1 10^3/uL (0.0-0.8); Eosinophils % 1.6 %; Hematocrit 29.7 % (36-47); Lymphocytes # 0.5 10^3/uL (0.8-4.8); Lymphocytes % 7.4 %; Mean Corpuscular Hemoglobin 29.1 pg (27-33); Mean Corpuscular Volume 91.1 fl (85-98); Mean Platelet Volume 9.9 fL (7.4-10.4); Monocytes # 0.3 10^3/uL (0.2-0.9); Monocytes % 4.6 %; Neutrophils # 5.87 10^3/uL (1.8-7.7); Neutrophils % 85.3 %; Nucleated Red Blood Cells % 0 %; Platelet Count 307 10^3/cmm (157-399); Red Blood Count 3.26 10^6/uL (3.85-5.65); Red Cell Distribution Width 19.9 % (12.1-15.1); White Blood Count 6.89 10^3/uL (3.29-11.43)
[2024-04-13 11:47] LABS: Iron 67 ug/dL (37-145); Percent Saturation 73.6 % (20-50); Total Iron Binding Capacity 91 mcg/dl; Unsaturated Iron Binding 24 ug/dL (112-347)
== END 2024-05-02 23:59 | disposition home or self-care (01) ==
LOC: ONCMED 10:55
PROVIDERS: PCP Internal Medicine Medical Oncology; Visit Provider Internal Medicine Medical Oncology
DX: C18.0 Malignant neoplasm of cecum (principal); D50.9 Iron deficiency anemia, unspecified
CPT/HCPCS: 36415; 83540; 83550; 85025

== ENCOUNTER 2024-06-09 08:17 | Oncology outpatient (recurring) (ONCR) | payer MEDICARE, SELFPAY ==
[2024-06-09 09:15] LABS: Basophils % 0.3 %; Eosinophils % 0.4 %; Lymphocytes # 0.4 10^3/uL (0.8-4.8); Lymphocytes % 4.9 %; Mean Corpuscular HGB Conc 31.7 g/dL (30-55); Mean Corpuscular Hemoglobin 29.4 pg (27-33); Mean Corpuscular Volume 92.7 fl (85-98); Mean Platelet Volume 10.1 fL (7.4-10.4); Monocytes # 0.3 10^3/uL (0.2-0.9); Monocytes % 3.8 %; Neutrophils % 90.3 %; Nucleated Red Blood Cells % 0 %; Platelet Count 288 10^3/cmm (157-399); Red Blood Count 3.13 10^6/uL (3.85-5.65); White Blood Count 7.31 10^3/uL (3.29-11.43)
[2024-06-09 09:31] LABS: Alanine Aminotransferase 131 U/L (0-33); Alkaline Phosphatase 765 U/L (35-105); Anion Gap 13.1 (5-19); Aspartate Amino Transferase 112 U/L (0-32); Blood Urea Nitrogen 18 mg/dL (8-23); Calcium 8.1 mg/dL (8.5-10.5); Carbon Dioxide 20 mmol/L (22-29); Chloride 105 mmol/L (98-107); Ferritin 377 ng/mL (15-150); Globulin 2.2 g/dL (1.3-4.6); Glucose 127 mg/dL (65-115); Iron 19 ug/dL (37-145); Osmolality Calculated 283 mOsm/kg (285-295); Percent Saturation 14.6 % (20-50); Potassium 3.1 mmol/L (3.5-5.1); Sodium 135 mmol/L (136-145); Total Bilirubin 1.2 mg/dL (0.15-1.2); Total Iron Binding Capacity 130 mcg/dl; Total Protein 5.2 g/dL (6.6-8.7); Unsaturated Iron Binding 111 ug/dL (112-347)
[2024-06-09] MEDS: ferric carboxy (PYXIS) 750 MG in sodium chloride 0.9% (100 ml) 100 ML 345 MG IV (11:12)
[2024-06-09 11:28] LABS: Homocysteine 12.49 umol/l (0-15)
[2024-06-09 11:43] LABS: Vitamin B12 591 pg/mL (232-1245)
[2024-06-09 11:45] VITALS: BP 104/68; PULSE 58; RESP 16; TEMP 36.9; O2SAT 96
[2024-06-14 04:25] LABS: Methylmalonic Acid 717 nmol/L (85-423)
== END 2024-07-02 23:59 | disposition home or self-care (01) ==
PROVIDERS: Internal Medicine; Nurse Practitioner Family; PCP Internal Medicine Medical Oncology; Visit Provider Internal Medicine Medical Oncology
DX: C18.0 Malignant neoplasm of cecum (principal); D50.9 Iron deficiency anemia, unspecified; Z79.899 Other long term (current) drug therapy; I10 Essential (primary) hypertension; C78.7 Secondary malignant neoplasm of liver and intrahepatic bile duct; R60.0 Localized edema; Z53.9 Procedure and treatment not carried out, unspecified reason
CPT/HCPCS: 36415; 80053; 82607; 82728; 83090; 83540; 83550; 83921; 85025; 96365; 99213; J1439